=== PATIENT | female | born 1950 | race Caucasian/White ===

== ENCOUNTER → 2017-12-15 07:25 | Outpatient (CLI) | payer MEDICARE, OTHER, SELFPAY ==
[2017-12-15 10:33] LABS: AST(SGOT) 23 U/L (15-37); Alanine Aminotransfer ALT/SGPT 25 U/L (13-56); Albumin, Serum 3.8 g/dL (3.2-5.0); Alkaline Phosphatase 73 U/L (45-117); Anion Gap 9 (5-15); BUN 14 mg/dL (7-18); BUN/Creat Ratio 13.5 RATIO (10-20); Calcium,Total 8.8 mg/dL (8.5-10.1); Chloride 108 mmol/L (98-107); Cholesterol 243 mg/dL (200); Creatinine, Serum 1.04 mg/dL (0.55-1.02); EST Glomerular Filtration Rate 56 mL/min (>60); Est Glom Filt Rate - Afr Amer 68 mL/min (>60); Globulin 3.8 g/dL (2.2-4.2); Glucose 87 mg/dL (74-106); High Density Lipoprotein 60 mg/dL; Potassium 3.4 mmol/L (3.5-5.1); Protein, Total 7.6 g/dL (6.4-8.2); Sodium Level 144 mmol/L (136-145); Thyroid Stim Hormone (TSH) 8.14 uIU/mL (0.358-3.74); Triglycerides 288 mg/dL; Very Low Density Lipoprotein 58 mg/dL (5-40)
== END ==
PROVIDERS: Family Provider Family Medicine; PCP Family Medicine; Visit Provider Family Medicine
DX: E78.5 Hyperlipidemia, unspecified (principal); E03.2 Hypothyroidism due to medicaments and other exogenous substances
CPT/HCPCS: 36415; 80053; 80061; 84443

== ENCOUNTER 2017-12-21 13:30 | Outpatient (RCR) | payer MEDICARE, OTHER, SELFPAY ==
--- NOTE | 2017-11-30 15:40 | HP.PTEVAL_ITS ---
Patient's Visit Information EVELIN SANDHU is a 67 year old F referred to Physical Therapy by Robb RUTH with a diagnosis of BACK AND LEG PAIN. Date of Evaluation: 11/30/17 Physical Therapist: Zita Jeffers - Visit Plan Frequency: 2-3x /Week Duration: 4-6 Weeks Plan: *OSTEOPOROSIS*. POSTURE CORRECTION/STRENGTHENING, INSTRUCTION IN APPROPRIATE BODY MECHANICS AND ACTIVITY MODIFICATIONS. DLS STARTING WITH A NEUTRAL SPINE PROGRESSING ROM TOLERATED. LISA LE ROM, STRETCHING AND STRENGTHENING. HEP INSTRUCTION. - Subjective Subjective: Work/Leisure: RETIRED. Disability: NO. Present symptoms: LOW BACK AND LISA LE PAIN. NO NUMBNESS OR TINGLING. Present since: CHRONIC LBP. LE PAIN STRARTED ABOUT 6 MONTHS AGO. Pain Scale: WORST 9/10, LEAST 2/10. Currently: 2/10. Commenced as a result of: NO APPARENT REASON. Symptoms at onset: LOW BACK. Worse: VACUUMING, YARD WORK, LIFTING, LYING DOWN, TRYING TO SLEEP, PROLONGED SITTING, WALKING, *STANDING*. Better: SITTING DOWN. MINIMAL ACTIVITY. Disturbed sleep: YES. Previous history/Previous treatment: PRADIP'S IN LOW BACK EVERY 3 MONTHS FOR SEVERAL YEARS. NO BACK SURGERY. NO PT. NO CHIRO. Coughing/sneezing/straining: POSITIVE. Gait: NOT USING ANY ASSISTIVE NOW AND HASN'T FOR ABOUT 3 YEARS. USED ONE ABOUT 3 YEARS AGO DUE TO FALLS AND BALANCE ISSUES BUT THAT RESOLVED WITH TKR. PATIENT REPORTS THAT WALKING CURRENTLY CAUSES LOW BACK AND HIP ACHYING. STATES THE FURTHER SHE WALKS THE MORE IT HURTS AND THE HARDER IT GETS EVEN IF SHE HAS HAD AN PRADIP. SOMETIMES EVEN THE HEELS OF HER FEET HURT WALKING. Difficulty initiating urinatin: NO. Accidents: NO. Unexplained weight loss: NO. Imaging: NO LUMBAR IMAGING FOR 6 YEARS WHEN MRI FOUND STENOSIS. PMH: RIGHT TKR. ASTHMA. LEFT ROTATOR CUFF REPAIR. CHRONIC UPPER BACK AND NECK PAIN. 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 OSTEOPOROSIS. - Objective Sitting Posture: POOR. FORWARD HEAD AND INCREASED KYPHOSIS. Standing Posture: POOR. INCREASED TRUNK FLEXION. Lordosis: REDUECED. Lateral shift: NO. Relevant shift: N/A. Active Correction of posture: WORSE. Other Observations : INDEP TRANSFER SIT TO STAND WITHOUT UE ASSIST. INDEP GAIT INTO PT WITHOUT AD BUT SLOW CADNACE WITH VERY SHORT LISA STRIDE LENGTH AND INCREASED TRUNK FLEXION. Motor deficit: LISA LE STRENGTH GROSSLY 4/5 WITH MMT EXCEPT HIPS GRADED 4-/5. INCREASED LBP WITH GENTLE HIP STRENGTH TESTING. Sensory deficit: LISA LE LIGHT TOUCH SENSATION IS INTACT AND SYMMETRICAL. ROM deficit: LISA HIP TIGHTNESS. ONLY ABLE TO FLEX LISA HIPS TO ABOUT 95 DEG. TIGHT HIP FLEXORS AND LISA HIP ROTATORS. POSITIVE LISA BRIGITTE TESTS. Dural Signs: NEGATIVE LISA LE DURAL SIGNS. Lumbar mvmt loss: flex - MOD. ext - TAJ. R SG - TAJ. L SG - TAJ. PATIENT HAS C/O INCREASED BACK PAIN WITH LUMBAR ROM TESTING ALL PLANES. Core strength: POOR. Palpation: TENDERNESS WITH PALPATION THROUGHOUT THE LUMBAR SPINE. - Goals Goal 1:: DECREASE C/O BACK AND LE SX'S Goal Time Frame: 4-6 Weeks Goal 2:: IMPROVE PERSONAL CARE, LIFTING, WALKING, SITTING, STANDING, SLEEP, SOCIAL LIFE, TRAVEL AND HOMEMAKING FUNCTION Goal Time Frame: 4-6 Weeks Goal 3:: INSTRUCT IN PROPHYLAXIX Goal Time Frame: 4-6 Weeks - Rehabilitation Potential Rehabilitation Potential: Fair - Anticipated Interventions Patient/Client Instruction: Educate patient on: Condition, Plan of Care, Risk Factors, Benefits of Fitness Program For the Purpose of:: To improve self management Therapeutic Exercise to Include: Strength training, Body mechanics, Postural training, Flexibilty training, In an aquatic setting, Dynamic Lumbar Stabilization Comment: PATIENT REPORTS SHE HAS SOME ALLERGY TO CLORINE BUT WANTS TO TRY THE POOL. INSTRUCTED PATIENT TO LET THE POOL THERAPIST KNOW IF THE CLORINE BECOMES A PROBLEM AND IF SO SCHEDULE A RE-CHECK WITH ME TO CHANGE TO LAND. For the Purpose of:: To decrease pain, To increase ROM, To improve ability to perform ADL's, To improve ability of physical actions for home/community/work/ leisure, To improve gait and locomotor functions Thank you for the opportunity to evaluate your patient. For Medicare and Medicare HMO plans, please review the plan of care and approve it. It will need to be FAXED BACK to us at [phone] for Medicare purposes. Please let me know if there are questions or concerns regarding this plan of care. Physician Signature: Date:
--- NOTE | 2018-04-09 13:02 | HP.PTDCNRP_ITS ---
HP - Discharge Summary (1) - Patient Information EVELIN Maryjane SANDHU was seen in my office for initial evaluation on 11/30/17. The following Plan of Care was established for this patient: Initial Frequency: 2-3x /Week Initial Duration: 4-6 Weeks - Anticipated Interventions Patient/Client Instruction: Educate patient on: Condition, Plan of Care, Risk Factors, Benefits of Fitness Program For the Purpose of:: To improve self management Therapeutic Exercise to Include: Strength training, Body mechanics, Postural training, Flexibilty training, In an aquatic setting, Dynamic Lumbar Stabilization For the Purpose of:: To decrease pain, To increase ROM, To improve ability to perform ADL's, To improve ability of physical actions for home/community/work/ leisure, To improve gait and locomotor functions This patient was last seen in our office 12/23/17. Pertinent comments regarding their Physical therapy will appear below: This patient has not returned to Physical Therapy and is appropriate to return to MD for further follow-up as needed. At this point I will be discontinuing this patient from physical therapy. I would be happy to see this patient again in the future if found appropriate by the physician. Thank you! Zita Jeffers
== END 2017-12-21 19:00 | disposition home or self-care (01) ==
LOC: PT 13:30
PROVIDERS: Family Provider Family Medicine; PCP Family Medicine; Visit Provider Anesthesiology Pain Medicine
DX: M54.9 Dorsalgia, unspecified (principal); R29.898 Other symptoms and signs involving the musculoskeletal system
CPT/HCPCS: 97113; 97162; 97530

== ENCOUNTER → 2017-12-29 14:19 | Outpatient (CLI) | payer MEDICARE, OTHER, SELFPAY ==
--- NOTE | 2017-12-29 14:22 | BI_ITS ---
MAMMOGRAPHY - BILATERAL DIAGNOSTIC REASON FOR EXAM: Female, 67 years old. Patient indicates mother at age 36 with breast cancer. Maternal grandmother with breast cancer at age 69. Paternal aunt with breast cancer at age 70. PERTINENT HISTORY: See above. TECHNIQUE: Digital examination. 2-D and 3-D tomosynthesis Mediolateral oblique (MLO) and craniocaudad (CC) views of both breasts were obtained. CAD: CAD was performed on this study. COMPARISON: November 05, 2016. FINDINGS: Breast Composition: There are scattered areas of fibroglandular density. There are no dominant masses or suspicious calcifications. There are a few, scattered, typically benign appearing calcifications. There is a stable, 9.3 mm, well-circumscribed nodule within the left upper lateral breast mid zone region. No other significant abnormalities are identified. BI/SCREENING MAMM (CAD), BILAT IMPRESSION: Stable bilateral diagnostic mammogram. ASSESSMENT CATEGORY: BIRADS Category 2: Benign. A letter regarding these results will be sent to the patient by the facility within 30 days. FOLLOW UP RECOMMENDATION: Yearly follow up mammogram recommended. (A) Approximately 10% of breast cancers are not detected by mammography. A normal mammogram should not delay biopsy of a clinically suspicious abnormality. Electronically Signed: Waqar Phelps MD at 9:04 EDT , Service support ,
--- NOTE | 2017-12-29 14:23 | BD_ITS ---
STUDY: DUAL ENERGY X-RAY ABSORPTIOMETRY / DXA REASON FOR EXAM: Female, 67 years old. 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 TECHNIQUE: Bone Mineral Density (BMD) measurements of lumbar spine and bilateral hips were obtained. COMPARISON: 09/30/2015 FINDINGS: Lumbar Spine (L1-L4): g/cm2 (0.92) / T-score (-2.0) / Z-score (-0.4) Findings are suggestive of osteopenia with a moderate fracture risk. Left Femur Total: g/cm2 (0.88) / T-score ( ) / Z-score (0.4) Left Femoral Neck: g/cm2 (0.76) / T-score (-2.0) / Z-score (-0.4) Right Femur Total: g/cm2 (0.92) / T-score (-0.7) / Z-score (0.7) Right Femoral Neck: g/cm2 (0.85) / T-score (-1.4) / Z-score (0.3) The T-Scores on the most recent prior examination were: Lumbar Spine (L1-L4): There has been worsening of bone density since the previous examination. Left Femur Total: -0.9 which represents a worsening of 2.1%. Right Femur Total: 0.92 which represents an improvement of 1.6%. BD/Dexa Bone Density Study IMPRESSION: The patient is considered osteopenic as outlined below according to World Roel Organization (WHO) criteria with a moderate fracture risk. There has been worsening of bone density since the previous examination. Reference Information: The T-score is the number of standard deviations above or below the standard which is normal for young adults at their peak bone mineral density. The World Health Organization (WHO) interprets the T-scores as follows: Above -1 Normal bone density Between -1 and -2.5 Osteopenia Equal to / or below -2.5 Osteoporosis As a practical clinical guideline, osteopenia may be graded as follows: Mild -1 through -1.5 Moderate -1.6 through -2.0 Severe -2.1 through -2.4 The Z-score is the number of standard deviations above or below age-matched controls. A Z-score of less than -1.5 would be considered abnormal. References: 1. NIH Osteoporosis and Related Bone Diseases http://www.osteo.org 2. International Society for Clinical Densitometry http://www.iscd.org 3. National Osteoporosis Foundation http://www.nof.org Electronically Signed: Pablito Alejandro DO at 9:44 EDT , Service support ,
== END ==
PROVIDERS: Family Provider Family Medicine; PCP Family Medicine; Visit Provider Family Medicine
DX: Z12.31 Encounter for screening mammogram for malignant neoplasm of breast (principal); Z78.0 Asymptomatic menopausal state; M85.80 Other specified disorders of bone density and structure, unspecified site
CPT/HCPCS: 77063; 77067; 77080

== ENCOUNTER → 2018-02-11 07:20 | Outpatient (CLI) | payer MEDICARE, OTHER, SELFPAY ==
--- NOTE | 2018-02-11 07:20 | DT_ITS ---
This patient was seen during an EMR downtime February 06, 2018 - February 13, 2018. This patient may have a combination of paper and electronic documentation or all paper documentation. All documentation is viewable within the e-chart portion of [facility] for each patient visit.
--- NOTE | 2018-02-11 07:36 | MRI_ITS ---
STUDY: MRI LUMBAR SPINE WITHOUT CONTRAST REASON FOR EXAM: Female, 67 years old. Neck pain and back pain radiating into the right leg TECHNIQUE: Standardized fat and water weighted pulse sequences were obtained in the sagittal and axial planes. COMPARISON: May 05, 2015 MRI lumbar spine FINDINGS: Mild grade 1 anterolisthesis of L4 on L5 noted. No evidence for spondylolysis visualized spinal cord demonstrates no evidence of cord edema. Conus terminates at approximately L1-L2 level. Cauda equina nerve roots follow spinal curvature Mild wedging of the lumbar vertebra is seen. Minimal wedging of the lower thoracic vertebrae. Heterogeneous marrow signal intensity on T1-weighted imaging may relate with chronic anemia or osteopenia. Differential possibilities include marrow infiltrative processes such as myeloma. Disc desiccation all levels. Loss of disc height at L5-S1 level with endplate degenerative changes. Anterior and posterior osteophytic spurring. Hypertrophy of this process processes. Level by level segmental analysis: L1-L2 level: Mild facet hypertrophy ligamentum flavum thickening and broad-based disc bulge without significant central canal stenosis or neural foraminal narrowing L2-L3 level: Bilateral facet hypertrophy with ligamentum flavum thickening and broad-based disc bulge with a central and left. Central disc herniation resulting in mild deformity of the left ventrolateral thecal sac and moderate left-sided and [id number] right-sided neural foraminal narrowing with mild central canal stenosis. L3-L4 level: Bilateral facet hypertrophy ligamentum flavum thickening and broad-based disc bulge with marginal osteophytes resulting in moderate to severe bilateral neural foraminal narrowing and severe central canal stenosis. Epidural lipomatosis seen at this level. L4-5 level: Bilateral facet hypertrophy ligamentum flavum thickening and broad-based disc bulge with dorsal epidural lipomatosis and marginal osteophytes resulting in moderate bilateral neural foraminal narrowing and moderate to severe central canal stenosis. L5-S1 level: Bilateral facet hypertrophy ligamentum flavum thickening and broad-based disc bulge with a superimposed small central and right paracentral disc protrusion with marginal osteophytes resulting in severe right-sided neural foraminal narrowing with impingement/approximation of the exiting right L5 nerve root and moderate left-sided neural foraminal narrowing with approximation of the left L5 nerve root. Mild flattening of the ventral thecal sac. No paraspinous soft tissue mass or fluid collections identified. Right facet joint spurring noted with narrowing of the right lateral recess. No definite synovial cyst seen on the current examination as compared to previous examination IMPRESSION: Lumbar spondylotic changes with multilevel central canal stenosis and neural foraminal narrowing including L2-L3, L3-L4, L4-5 and L5-S1 levels. Please see above level by level complete analysis and details. No evidence for acute lumbar spine fractures. Electronically Signed: Antonio Velasquez, at 11:36 EDT Tel , Service support , MRI/Spine Lumbar (Routine)
== END ==
PROVIDERS: Family Provider Family Medicine; PCP Family Medicine; Visit Provider Anesthesiology Pain Medicine
DX: M54.9 Dorsalgia, unspecified (principal); M79.606 Pain in leg, unspecified
CPT/HCPCS: 72148

== ENCOUNTER → 2018-02-16 13:40 | Outpatient (CLI) | payer MEDICARE, OTHER, SELFPAY | PROVIDERS: Family Provider Family Medicine; PCP Family Medicine; Visit Provider Specialist | DX: Z91.038 Other insect allergy status (principal) | CPT/HCPCS: 36415 ==

== ENCOUNTER → 2018-02-28 15:02 | Outpatient (CLI) | payer MEDICARE, OTHER, SELFPAY ==
[2018-02-28 18:24] LABS: T4 Free Direct 1.12 ng/dL (0.76-1.46); Thyroid Stim Hormone (TSH) 0.81 uIU/mL (0.358-3.74)
== END ==
PROVIDERS: Family Provider Family Medicine; PCP Family Medicine; Visit Provider Family Medicine
DX: E03.2 Hypothyroidism due to medicaments and other exogenous substances (principal)
CPT/HCPCS: 36415; 84439; 84443

== ENCOUNTER → 2018-03-17 15:11 | Outpatient (CLI) | payer MEDICARE, OTHER, SELFPAY ==
--- NOTE | 2018-03-17 15:14 | VDLE_ITS ---
Reason For Study: LEG SWELLING RIGHT LEFT GSV is normal. GSV is normal. CFV is compressible, spontaneous, phasic, CFV is compressible, spontaneous, phasic, competent and demonstrates normal competent, and demonstrates normal augmentation. augmentation. FV is compressible, spontaneous, phasic, FV is compressible, spontaneous, phasic, competent and demonstrates normal competent and demonstrates normal augmentation. augmentation. POP V is compressible, spontaneous, phasic, POP V is compressible, spontaneous, phasic, competent and demonstrates normal competent and demonstrates normal augmentation. augmentation. T/P Trunk is compressible. T/P Trunk is compressible. PTV is compressible. PTV is compressible. RT PerV is compressible. LT PerV is compressible. Procedure Exam performed in department. A preliminary report was called and/or faxed to Dr. Recio. Interpretation Summary Deep veins of the lower extremities are bilaterally patent and compressible segmentally. There is no evidence of deep vein thrombosis on either side. Valvular competence appears intact within the proximal deep venous systems bilaterally. The greater saphenous veins appear bilaterally patent and compressible segmentally. Ordering Physician: Kobi Recio Referring Physician: Kobi Recio Performed By: Rain Piedra RVT
== END ==
PROVIDERS: Family Provider Family Medicine; PCP Family Medicine; Visit Provider Family Medicine
DX: M79.89 Other specified soft tissue disorders (principal)
CPT/HCPCS: 93970

== ENCOUNTER → 2018-04-11 15:35 | Outpatient (CLI) | payer MEDICARE, OTHER, SELFPAY ==
[2018-04-11 17:00] LABS: Amphetamine Urine VISTA NEGATIVE (<1000 ng/mL); Barbiturate Urine VISTA NEGATIVE (< 200 ng/mL); Benzodiazepine Urine VISTA NEGATIVE (< 200 ng/mL); Cocaine Urine VISTA NEGATIVE (< 300 ng/mL); Ecstacy Urine VISTA NEGATIVE (< 500 ng/mL); Methadone Urine VISTA NEGATIVE (< 300 ng/mL); PCP Urine VISTA NEGATIVE (< 25 ng/mL); THC Urine VISTA NEGATIVE (< 50 ng/mL); Vista UDS pH Range 6
== END ==
PROVIDERS: Family Provider Family Medicine; PCP Family Medicine; Visit Provider Anesthesiology Pain Medicine
DX: F11.20 Opioid dependence, uncomplicated (principal)
CPT/HCPCS: 80307

== ENCOUNTER → 2018-12-13 08:39 | Outpatient (CLI) | payer MEDICARE, OTHER, SELFPAY ==
--- NOTE | 2018-12-13 08:58 | RAD_ITS ---
STUDY: X-RAY - LUMBAR SPINE REASON FOR EXAM: Female, 68 years old. History of spinal stenosis. Pain. TECHNIQUE: 3 view(s) of the lumbar spine were obtained. COMPARISON: Numerous prior studies including previous radiographs 02/25/2015. FINDINGS: Normal lumbar lordosis. There is no substantial scoliosis. There is a normal alignment of the vertebrae. There is multilevel endplate spondylosis of the lumbar vertebrae. There is multi-level degenerative disc disease with multi-level disc space narrowing. Findings are most pronounced at L5-S1. Grossly stable. There is no demonstrated fracture. There is atherosclerotic calcification of the abdominal aorta without a demonstrated aneurysm. RAD/Lumbar Spine 2 or 3 Views IMPRESSION: No acute abnormality. Stable degenerative changes. Electronically Signed: Ruslan Davis MD at 21:25 EDT , Service support ,
[2018-12-13 11:02] LABS: Cholesterol 175 mg/dL (200); High Density Lipoprotein 66 mg/dL; Thyroid Stim Hormone (TSH) 0.14 uIU/mL (0.358-3.74); Triglycerides 101 mg/dL; Very Low Density Lipoprotein 20 mg/dL (5-40)
== END ==
PROVIDERS: Family Provider Family Medicine; PCP Family Medicine; Referring Provider Anesthesiology Pain Medicine; Visit Provider Anesthesiology Pain Medicine
DX: E03.2 Hypothyroidism due to medicaments and other exogenous substances (principal); E78.5 Hyperlipidemia, unspecified
CPT/HCPCS: 36415; 72100; 80061; 84443

== ENCOUNTER → 2018-12-28 13:10 | Outpatient (CLI) | payer MEDICARE, OTHER, SELFPAY ==
--- NOTE | 2018-12-28 13:17 | RAD_ITS ---
STUDY: X-RAY - PELVIS AND RIGHT HIP REASON FOR EXAM: Female, 68 years old. Radiating right hip pain TECHNIQUE: 3 views of the pelvis and hip. COMPARISON: None. FINDINGS: There is a non-specific bowel gas pattern. Normal visualized soft tissue structures. There is diffuse demineralization of the osseous structures. There is narrowing with cortical sclerosis and osteophyte formation of the sacroiliac joint consistent with degenerative osteoarthritic changes. Normal bilateral superior and inferior pubic rami. Normal pubic symphysis. Normal bilateral ischial tuberosities. Normal visualized femoral head. Normal acetabulum. There is mild articular joint space narrowing of the hip. RAD/HIP, UNI W/ Pelvis 2-3 Views IMPRESSION: Degenerative arthrosis, no demonstrated fracture or suspicious osseous lesion. However, hip and pelvic fractures in patients of this age can be subtle, if there is strong clinical suspicion of a fracture, recommend further evaluation with CT Electronically Signed: Franklin Arcos MD at 14:03 EDT , Service support ,
== END ==
PROVIDERS: Family Provider Family Medicine; PCP Family Medicine; Referring Provider Anesthesiology Pain Medicine; Visit Provider Anesthesiology Pain Medicine
DX: M25.551 Pain in right hip (principal)
CPT/HCPCS: 73502

== ENCOUNTER → 2019-01-05 15:28 | Outpatient (CLI) | payer MEDICARE, OTHER, SELFPAY ==
--- NOTE | 2019-01-05 15:32 | BI_ITS ---
MAMMOGRAPHY - BILATERAL SCREENING 3-D TOMOSYNTHESIS REASON FOR EXAM: Female, 68 years old. Bilateral Screening 3-D tomosynthesis PERTINENT HISTORY: Mother at age 36 and maternal grandmother at age 69 and paternal aunt at age 70 and diagnosed with breast cancer. Bilateral needle biopsies.. TECHNIQUE: 2-D mammograms and 3-D Tomosynthesis of the breast (s) were performed. CAD was performed. COMPARISON: December 29, 2017. FINDINGS: The breast composition is composed of scattered fibroglandular density. Scattered benign calcifications are seen. No dense spiculated masses or suspicious microcalcifications are identified. No architectural distortion is identified. There is no skin thickening or retraction. Typically benign-appearing calcifications are identified. There has been no significant change since the prior study. BI/SCREENING MAMM (CAD), BILAT IMPRESSION: No mammographic signs of malignancy. Routine yearly mammograms recommended. ASSESSMENT CATEGORY: BIRADS Category 2: Benign. A letter regarding these results will be sent to the patient by the facility within 30 days. FOLLOW UP RECOMMENDATION: Yearly follow up mammogram recommended. (A) Approximately 10% of breast cancers are not detected by mammography. A normal mammogram should not delay biopsy of a clinically suspicious abnormality. Electronically Signed: Waqar Phelps MD at 7:55 EDT , Service support ,
== END ==
PROVIDERS: Family Provider Family Medicine; PCP Family Medicine; Referring Provider Family Medicine; Visit Provider Family Medicine
DX: Z12.31 Encounter for screening mammogram for malignant neoplasm of breast (principal)
CPT/HCPCS: 77063; 77067

== ENCOUNTER → 2019-03-12 16:25 | Outpatient (CLI) | payer MEDICARE, OTHER, SELFPAY ==
[2019-03-12 17:59] LABS: T4 Free Direct 1.16 ng/dL (0.76-1.46); Thyroid Stim Hormone (TSH) 1.28 uIU/mL (0.358-3.74)
== END ==
PROVIDERS: Family Provider Family Medicine; PCP Family Medicine; Visit Provider Family Medicine
DX: E03.2 Hypothyroidism due to medicaments and other exogenous substances (principal)
CPT/HCPCS: 36415; 84439; 84443

== ENCOUNTER 2019-05-02 14:00 | Outpatient (RCR) | payer MEDICARE, OTHER, SELFPAY ==
[2019-03-26 14:07] VITALS: BMI 36.3
--- NOTE | 2019-04-10 12:01 | HP.PTEVAL_ITS ---
Patient's Visit Information EVELIN SANDHU is a 68 year old F referred to Physical Therapy by Willie Cardoza DO with a diagnosis of RIGHT HIP FLEXOR TENDONITIS. Date of Evaluation: 04/10/19 Physical Therapist: Zita Jeffers PT, Cert MDT - Visit Plan Frequency: 2-3x /Week Duration: 4-6 Weeks Plan: RIGHT HIP US, GENTLE ROM, STRETCHING AND STRENGTHENING TO HELP MEET SET GOALS. - Subjective Findings: THIS PATIENT PRESENTS TO PT WITH C/O LEFT HIP PAIN AND CATCHING. SHE REPORTS SHE IS HOPING PHYSICAL THERAPY WILL HELP IT SO SHE DOESN'T HAVE TO HAVE SURGERY. Work/Leisure: RETIRED. Disability: NO. Present symptoms: RIGHT HIP PAIN AND CATCHING. H/O NERVE PROBLEMS IN BOTH LEGS. RIGHT HIP PAIN CURRENTLY RADIATING DOWN JUST BELOW KNEE. Present since: ABOUT 2-3 MONTHS. Pain Scale: WORST 9/10, LEAST 0/10. Currently: 2/10. Commenced as a result of: NO APPARENT REASON. Symptoms at onset: RIGHT LEG WAS HURTING AND CATCHING AND WOULDN'T WORK [employer]. Worse: STOOPING, STANDING, WALKING, ALPESH ENING, ROLLING OVER IN BED. Better: SITTING AND STRETCHING OUT LEG. Disturbed sleep: SOMETIMES. Previous history/Previous treatment: HIP INJECTION BY DR. KNOX THAT DIDN'T HELP. Coughing/sneezing/straining: NEGATIVE. Gait: SOMETIMES THE RIGHT LEG WON'T GO - IT CATCHES AND DOESN'T WANT TO MOVE THEN THE PAIN STARTS. Difficulty initiating urinatin: NO. Accidents: NO. Unexplained weight loss: NO. Imaging: RIGHT HIP X-RAY - OSTEOPOROSIS. PMH: SPINAL STENOSIS, ASTHMA. 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 - Objective Sitting/Standing Posture: POOR. DECREASED LORDOSIS BUT NO RELEVENT LATERAL SHIFT. Active Correction of posture: Other Observations: INDEP SLOW GAIT INTO PT WITH NO LOSS OF BALANCE AND MILD LIMP ON RIGHT LE. Motor deficit: LLE: HIP 4/5, KNEE 4-5/5, ANKLE 5/5. RIGHT HIP 3+/5, KNEE EXT 4-/5, KNEE FLEX 4-/5, AN KLE 4-/5. RIGHT LE MMT LIMITED BY PAIN. Sensory deficit: LISA LE LIGHT TOUCH SENSATION APPEARS SYMMETRICAL. ROM deficit: LEFT LE WFL. RIGHT HIP, KNEE AND ANKLE ROM IS PAINFUL. SHE IS UNABLE TO DO A STRAIGHT LEG RAISE RIGHT IN LYING AND SHE HAS LIMITED RIGHT HIP PAIN ALL PLANES WITH MOST COMFORTALE POSITION BEING ABOUT 80 DEG OF FLEXION IN SITTING. Lumbar mvmt loss: NT AT PATIENTS REQUEST. GETTING BACK INJECTIONS EVERY 3 MONTHS. Core strength: POOR. Palpation: TENDERNESS WITH PALPATION OF THE RIGHT ANTERIOR HIP AND GROIN REGIONS. RIGHT GREATER TROCH REGION IS NOT TENDER. - Goals Goal 1:: DECREASE C/O RIGHT HIP PAIN Goal Time Frame: 4-6 Weeks Goal 2:: IMPROVE STANDING AND WALKING FUNCTION TO EASE ADL'S Goal Time Frame: 4-6 Weeks Goal 3:: IMPROVE RIGHT LE FUNCTIONAL STRENGTH TO INCREASE ACTIVITY TOLERANCE Goal Time Frame: 4-6 Weeks Goal 4:: IMPROVE RIGHT LE FUNCTIONAL ROM TO EASE ADL'S Goal Time Frame: 4-6 Weeks Goal 5:: INDEP HEP Goal Time Frame: 4-6 Weeks - Rehabilitation Potential Rehabilitation Potential: Fair - Anticipated Interventions Patient/Client Instruction: Educate patient on: Condition, Plan of Care, Risk Factors, Benefits of Fitness Program For the Purpose of:: To improve self management Therapeutic Exercise to Include: Strength training, Flexibilty training, Active ROM For the Purpose of:: To decrease pain, To increase ROM, To improve muscle performance and motor function, To increase tolerance to activity/condition/position, To improve ability of physical actions for home/community/work/leisure Thank you for the opportunity to evaluate your patient. For Medicare and Medicare HMO plans, please review the plan of care and approve it. It will need to be FAXED BACK to us at [phone] for Medicare purposes. For Medicare only, by signing this I certify the plan of care. Please let me know if there are questions or concerns regarding this plan of care. Physician Signature: Date:
--- NOTE | 2019-05-02 14:36 | HP.PTDCSUM_ITS ---
HP - PT D/C Summary It has been my pleasure to treat EVELIN SANDHU under orders from Willie Cardoza DO, for the diagnosis of RIGHT HIP FLEXOR TENDONITIS for a total of 7 visit(s). Discharge Date: Please see the following information for a summary of their discharge status. - Subjective Subjective: PATIENT REPORTS THAT LAST SESSION REALLY HELPED A LOT . STATES SHE HASN'T HAD ANY PAIN OR CATCHING SINCE LAST VISIT AND SHE IS NO LONGER HAVING TROUBLE GETTING IN AND OUT OF BED. STATES SHE IS ABOUT 80% BETTER. NOT 100% BECAUSE STILL HAS SOME TENDERNESS WHEN SHE PUSHES ON THE OUTSIDE OF HER RIGHT HIP. SHE IS HOPEFUL THAT IF SHE CONTINUES THESE EX'S IT WILL GO AWAY. STATES THAT NOW SHE DOESN'T THINK SHE HAS TO GO BACK TO DR. STEWARD AND GET THAT MRI. NO GROIN PAIN OR CATCHING NOW. PATIENT REPORTS SHE WANTS THIS TO BE HER LAST THERAPY SESSION AND SHE WILL USE HER [facility] [employer] MEMBERSHIP TO CONTINUE - Pain ANTERIOR R HIP Pain Intensity (Out of 10): 0 - Overall Improvement % Improvement: 80 - Objective Objective/Function: PATIENT IS HAPPY WITH HER PROGRESS AND DID WELL WITH ALL OF THE EX'S TODAY. I AM GOING TO GO AHEAD AND DISCHARGE HER TO EX WITH HER [facility] [employer] MEMBERSHIP AT HER REQUEST. I STRONGLY ENCOURAGED HER TO FOLLOW UP WITH DR. DICK IF HER PAIN COMES BACK. SHE IS AGREEABLE. PATIENT REMAINED PAINFREE THROUGHOUT SESSION. EVEN DID WELL WITH LATERAL STEP UPS TODAY. - Goals Goal 1:: DECREASE C/O RIGHT HIP PAIN Goal Progress: Goal Met Goal 2:: IMPROVE STANDING AND WALKING FUNCTION TO EASE ADL'S Goal Progress: Goal Met Goal 3:: IMPROVE RIGHT LE FUNCTIONAL STRENGTH TO INCREASE ACTIVITY TOLERANCE Goal Progress: Goal Met Goal 4:: IMPROVE RIGHT LE FUNCTIONAL ROM TO EASE ADL'S Goal Progress: Goal Met Goal 5:: INDEP HEP Goal Progress: Goal Met - Plan Plan: D/C - D/C Information If there are questions or concerns regarding this patient's physical therapy, please feel free to call me at [phone]. Thank you for the referral of this patient. Sincerely, Zita Jeffers, PT, Cert MDT
== END 2019-05-02 19:00 | disposition home or self-care (01) ==
LOC: PT 14:00
PROVIDERS: Family Provider Family Medicine; PCP Family Medicine; Referring Provider Orthopaedic Surgery; Visit Provider Orthopaedic Surgery
DX: M76.11 Psoas tendinitis, right hip (principal)
CPT/HCPCS: 97035; 97110; 97161; 97530

== ENCOUNTER → 2019-07-09 16:38 | Outpatient (CLI) | payer MEDICARE, OTHER, SELFPAY ==
[2019-03-26 14:07] VITALS: BMI 36.3
--- NOTE | 2019-07-09 16:42 | RAD_ITS ---
STUDY: X-RAY - UNILATERAL RIBS ( LEFT ) WITH CHEST REASON FOR EXAM: Female, 68 years old. Contusion, chest wall pain, fell 2 days ago TECHNIQUE - RIBS: 3 view(s) of the ribs. TECHNIQUE - CHEST: Single PA view of the chest. COMPARISON: Prior chest of 04/28/2017 FINDINGS - RIBS: There is an old healed fracture of the left second rib. The bones are osteopenic. FINDINGS - CHEST: The lungs are clear and expanded. Left hemidiaphragm is mildly elevated. Normal size heart. Normal mediastinum and key. Normal visualized pulmonary arteries. There are calcified plaques of the aortic arch. Normal visualized thoracic spine. Normal visualized ribs, clavicles, and shoulders. There is no demonstrated abnormality of the visualized soft tissue structures of the upper abdomen. RAD/Ribs Uni Min 3V w/PA Chest IMPRESSION: RIBS: Old healed fracture of the left second rib. There is no evidence of acute. CHEST: Mildly elevated left hemidiaphragm. Calcified plaques of the aortic arch. There is no evidence of hemo or pneumothorax or pulmonary contusion. Electronically Signed: Eliseo Martínez MD at 22:34 EST , Service support ,
== END ==
PROVIDERS: Family Provider Family Medicine; PCP Family Medicine; Referring Provider Family Medicine; Visit Provider Family Medicine
DX: S20.212A Contusion of left front wall of thorax, initial encounter (principal); X58.XXXA Exposure to other specified factors, initial encounter; Y93.9 Activity, unspecified; Y92.9 Unspecified place or not applicable; Y99.9 Unspecified external cause status
CPT/HCPCS: 71101

== ENCOUNTER → 2020-01-24 14:20 | Outpatient (CLI) | payer MEDICARE, OTHER, SELFPAY ==
[2019-03-26 14:07] VITALS: BMI 36.3
--- NOTE | 2020-01-24 14:23 | BI_ITS ---
MAMMOGRAPHY - BILATERAL SCREENING REASON FOR EXAM: Female, 69 years old. Routine annual screening examination. PERTINENT HISTORY: Mother with breast cancer. Grandmother with breast cancer. Aunt with breast cancer. TECHNIQUE: Digital bilateral breast mylene (3D mammographic acquisition) in the CC and MLO projections. 2-D mediolateral oblique (MLO) and craniocaudad (CC) views of both breasts were obtained. CAD: Full Field Digital Mammography with Computer Added Detection was performed. COMPARISON: Comparison is made with prior examination dated January 05, 2019 and December 29, 2017. FINDINGS: Breast Composition: There are scattered areas of fibroglandular density. There are no dominant masses or suspicious calcifications. Stable benign-appearing bilateral axillary lymph nodes. No other significant abnormalities are identified. There has been no significant change since the prior study. BI/SCREEN MAMM (CAD) W/MYLENE BILAT IMPRESSION: Stable bilateral screening mammogram. Yearly follow-up mammogram recommended. (A) ASSESSMENT CATEGORY: BIRADS Category 2: Benign. A letter regarding these results will be sent to the patient by the facility within 30 days. Approximately 10% of breast cancers are not detected by mammography. A normal mammogram should not delay biopsy of a clinically suspicious abnormality. [id number] Electronically Signed: Asa Damon, at 10:58 EDT , Service support ,
--- NOTE | 2020-01-24 14:29 | BD_ITS ---
STUDY: DUAL ENERGY X-RAY ABSORPTIOMETRY / DXA REASON FOR EXAM: Female, 69 years old. 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 COMPARISON: Comparison is made with prior examination dated December 29, 2017. FINDINGS: Lumbar Spine (L1-L4): g/cm2 (0.985) / T-score (-1.5) / Z-score (0.2) Findings are suggestive of osteopenia with a low fracture risk. Left Femur Total: g/cm2 (0.909) / T-score (-0.8) / Z-score (0.7) Left Femoral Neck: g/cm2 (0.777) / T-score (-1.9) / Z-score (-0.2) Right Femur Total: g/cm2 (0.910) / T-score (-0.8) / Z-score (0.7) Right Femoral Neck: g/cm2 (0.785) / T-score (-1.8) / Z-score (-0.1) The T-Scores on the most recent prior examination were: Lumbar Spine (L1-L4): There has been improvement of bone density since the previous examination. Left Femur Total: which represents an improvement of 2.4%. Right Femur Total: which represents a worsening of 1.6%. BD/Dexa Bone Density Study IMPRESSION: The patient is considered osteopenic as outlined below according to World Roel Organization (WHO) criteria with a moderate fracture risk. There has been improvement of bone density since the previous examination. Reference Information: The T-score is the number of standard deviations above or below the standard which is normal for young adults at their peak bone mineral density. The World Health Organization (WHO) interprets the T-scores as follows: Above -1 Normal bone density Between -1 and -2.5 Osteopenia Equal to / or below -2.5 Osteoporosis As a practical clinical guideline, osteopenia may be graded as follows: Mild -1 through -1.5 Moderate -1.6 through -2.0 Severe -2.1 through -2.4 The Z-score is the number of standard deviations above or below age-matched controls. A Z-score of less than -1.5 would be considered abnormal. References: 1. NIH Osteoporosis and Related Bone Diseases http://www.osteo.org 2. International Society for Clinical Densitometry http://www.iscd.org 3. National Osteoporosis Foundation http://www.nof.org Electronically Signed: Asa Damon, at 13:53 EDT , Service support ,
== END ==
PROVIDERS: PCP Family Medicine; Referring Provider Family Medicine; Visit Provider Family Medicine
DX: Z12.31 Encounter for screening mammogram for malignant neoplasm of breast (principal); Z78.0 Asymptomatic menopausal state
CPT/HCPCS: 77063; 77067; 77080

== ENCOUNTER → 2020-09-08 11:02 | Outpatient (CLI) | payer MEDICARE, OTHER, SELFPAY ==
[2019-03-26 14:07] VITALS: BMI 36.3
[2020-09-08 12:51] LABS: Hematocrit 38.9 % (37-47); Hemoglobin 12.7 g/dL (12.0-15.0); Mean Corp Hgb Conc 32.6 g/dL (32-36); Mean Corpuscular Hgb 28.6 pg (27.0-32.0); Mean Corpuscular Volume 87.6 fL (81-99); Mean Platelet Vol. 9.7 fl (6.2-12.0); Platelet Count 284 K/mm3 (150-450); RBC Distribution Width CV 13.3 % (11.6-14.6); RBC Distribution Width SD 43.2 fl (35.1-43.9); Red Blood Count 4.44 M/mm3 (4.2-5.4); White Blood Count 8.4 K/mm3 (4.4-11.0)
[2020-09-08 13:13] LABS: Vitamin D,25 Hydroxy 54.9 ng/mL
[2020-09-08 13:33] LABS: ALB/GLOB Ratio 1.2 RATIO (0.9-2.4); AST(SGOT) 12 U/L (15-37); Alanine Aminotransfer ALT/SGPT 19 U/L (13-56); Albumin, Serum 3.9 g/dL (3.2-5.0); Alkaline Phosphatase 61 U/L (45-117); Anion Gap 7 (5-15); BUN 24 mg/dL (7-18); Chloride 107 mmol/L (98-107); Cholesterol 181 mg/dL (200); Creatinine, Serum 1.09 mg/dL (0.55-1.02); EST Glomerular Filtration Rate 53 mL/min (>60); Est Glom Filt Rate - Afr Amer 64 mL/min (>60); Globulin 3.2 g/dL (2.2-4.2); Glucose 86 mg/dL (74-106); High Density Lipoprotein 66 mg/dL; Potassium 3.6 mmol/L (3.5-5.1); Protein, Total 7.1 g/dL (6.4-8.2); Sodium Level 141 mmol/L (136-145); T4 Free Direct 1.12 ng/dL (0.76-1.46); Thyroid Stim Hormone (TSH) 1.41 uIU/mL (0.358-3.74); Triglycerides 107 mg/dL; Very Low Density Lipoprotein 21 mg/dL (5-40)
== END ==
PROVIDERS: PCP Family Medicine; Referring Provider Family Medicine; Visit Provider Family Medicine
DX: K21.9 Gastro-esophageal reflux disease without esophagitis (principal); E78.5 Hyperlipidemia, unspecified; E03.2 Hypothyroidism due to medicaments and other exogenous substances; E55.9 Vitamin D deficiency, unspecified
CPT/HCPCS: 36415; 80053; 80061; 82306; 84439; 84443; 85027

== ENCOUNTER → 2021-01-26 12:55 | Outpatient (CLI) | payer MEDICARE, SELFPAY ==
[2019-03-26 14:07] VITALS: BMI 36.3
--- NOTE | 2021-01-26 12:57 | BI_ITS ---
MAMMOGRAPHY - BILATERAL SCREENING REASON FOR EXAM: Female, 70 years old. Routine annual screening examination. PERTINENT HISTORY: Mother with breast cancer. Grandmother with breast cancer. Aunt with breast cancer. TECHNIQUE: Digital bilateral breast christin (3D mammographic acquisition) in the CC and MLO projections. 2-D mediolateral oblique (MLO) and craniocaudad (CC) views of both breasts were obtained. CAD: Full Field Digital Mammography with Computer Added Detection was performed. COMPARISON: Comparison is made with prior study of 01/24/2020 and 01/05/2019. FINDINGS: Breast Composition: There are scattered areas of fibroglandular density. There are no dominant masses or suspicious calcifications. Stable benign appearing bilateral axillary lymph nodes. No other significant abnormalities are identified. There has been no significant change since the prior study. BI/SCREENING MAMM (CAD), BILAT IMPRESSION: Stable bilateral screening mammogram. Yearly follow-up mammogram recommended. (A) ASSESSMENT CATEGORY: BIRADS Category 2: Benign. A letter regarding these results will be sent to the patient by the facility within 30 days. Approximately 10% of breast cancers are not detected by mammography. A normal mammogram should not delay biopsy of a clinically suspicious abnormality. [id number] Electronically Signed: Asa Damon MD at 13:51 EDT , Service support ,
== END ==
PROVIDERS: PCP Family Medicine; Referring Provider Family Medicine; Visit Provider Family Medicine
DX: Z12.31 Encounter for screening mammogram for malignant neoplasm of breast (principal); Z70.3 Counseling related to combined concerns regarding sexual attitude, behavior and orientation
CPT/HCPCS: 77067

== ENCOUNTER 2021-03-16 16:07 | Observation (INO) | payer MEDICARE, SELFPAY ==
[2019-03-26 14:07] VITALS: BMI 36.3
[2021-03-16] VITALS (10 sets, daily range): BP systolic 141–188; BP diastolic 56–76; PULSE 62–67; RESP 16–18; TEMP 36.6–36.9; O2SAT 95–98; BMI 33.6; BMI 35.2
--- NOTE | 2021-03-16 16:45 | EKG12_ITS ---
Test Reason : CHEST PAIN Blood Pressure : / mmHG Vent. Rate : 067 BPM Atrial Rate : 067 BPM P-R Int : 154 ms QRS Dur : 086 ms QT Int : 406 ms P-R-T Axes : 034 006 011 degrees QTc Int : 429 ms Normal sinus rhythm Nonspecific ST abnormality Abnormal ECG Confirmed by TYRONE DAVILA, EDEL ([id number]), offline editor AALIYAH RO ([id number]) on 03/18/2021 11:51:10 AM Referred By: AUBREY Confirmed By:EDEL HANSEN MD
[2021-03-16] MEDS: Ondansetron 4 MG/2 ML Vial IV (16:56)
[2021-03-16] MEDS: 0.9% Normal Saline 1,000 ML 1000 ML IV (16:56)
--- NOTE | 2021-03-16 16:59 | RAD_ITS ---
INDICATION: chest pain EXAMINATION/TECHNIQUE: X-RAY - XR Chest 1 View COMPARISON: 07/09/2019. FINDINGS: The lungs are clear. Tortuous and calcified thoracic aorta. The heart is not enlarged. Elevation of the left hemidiaphragm. No pleural effusion or pneumothorax. No acute osseous abnormalities. RAD/Chest 1 View (Portable) IMPRESSION: No acute radiographic abnormalities. Electronically Signed: Neil Baker MD at 17:40 EDT Tel , Service support ,
[2021-03-16 17:04] LABS: Absolute Lymphocyte Count 1.89 X10^3/uL (0.83-4.51); Absolute Neutrophil Count 5.5 X10^3/uL (2.0-7.7); Basophil# 0.04 X10^3/uL; Basophil% 0.5 % (0-1); Eosinophils% 1.3 % (0-5); Hematocrit 36.8 % (37-47); Hemoglobin 11.9 g/dL (12.0-15.0); Lymphocyte # 1.89 X10^3/ul (0.83-4.51); Lymphocyte % 23.6 % (19-41); Mean Corp Hgb Conc 32.3 g/dL (32-36); Mean Corpuscular Hgb 27.9 pg (27.0-32.0); Mean Corpuscular Volume 86.2 fL (81-99); Mean Platelet Vol. 9.3 fl (6.2-12.0); Monocyte# 0.47 X10^3/uL; Monocyte% 5.9 % (0-10); NRBC Flagged by Analyzer 0 % (0-5); Neutrophil # 5.48 X10^3/uL (2.7-7.7); Neutrophil % 68.4 % (47-70); Platelet Count 239 K/mm3 (150-450); RBC Distribution Width CV 13.9 % (11.6-14.6); RBC Distribution Width SD 43.7 fl (35.1-43.9); Red Blood Count 4.27 M/mm3 (4.2-5.4)
--- NOTE | 2021-03-16 17:04 | EDS_ITS ---
HPI History of Present Illness Chief Complaint: Chest Pain Informant: patient Narrative Narrative: Patient is a 70-year-old female who presents to the emergency department for multiple complaints. She states that she has had nausea/vomiting/diarrhea over the past 3 days. Is been going on all day. She developed chest pain that was substernal today. This lasted maybe 45 minutes. She is currently asymptomatic with this. She states that she has had this disco mfort before in the past. She does have a history of GERD and does take medications for this. No radiation of the pain. It did not seem to be related with exertion. She denies any leg swelling or calf pain. No history of CAD, thromboembolism. She denies any known sick contacts. She has had a mild nonproductive cough. No fevers or chills. She denies any recent travel or antibiotic use. Her abdominal pain she rates as mild. She has been urinating more frequently lately but denies any dysuria or hematuria. [facility] Medical History (Updated 03/16/21 @ 21:[address] Willie Merida, ) Anxiety Asthma Chest pain Chronic pain Degenerative lumbar spinal stenosis Depression GERD (gastroesophageal reflux disease) High cholesterol Hypertension Non-smoker Osteoarthritis Osteoporosis Screening for colon cancer Home Medications albuterol sulfate 2 puff IH PRN PRN 11/04/16 [History Last Taken Unknown] ascorbic acid (vitamin C) 500 mg PO DAILY@0800 11/04/16 [History Last Taken 03/15/21] atorvastatin 20 mg PO QHS 11/04/16 [History Last Taken 03/15/21] cholecalciferol (vitamin D3) 6,000 unit PO DAILY 11/04/16 [History Last Taken 03/15/21] citalopram 20 mg PO DAILY 11/04/16 [History Last Taken 03/15/21] fish oil-dha-epa 1 ea PO DAILY 11/04/16 [History Last Taken 03/16/21] fluticasone furoate-vilanterol 1 puff IH DAILY 11/04/16 [History Last Taken 03/16/21] levothyroxine 112 mcg PO DAILY 11/04/16 [History Last Taken 03/16/21] melatonin-pyridoxine (vit B6) 1 ea PO QHS 11/04/16 [History Last Taken Unknown] meloxicam 7.5 mg PO DAILY 11/04/16 [History Last Taken 03/15/21] mv,Ca,min-folic acid-vit K1 1 ea PO DAILY 11/04/16 [History Last Taken 03/16/21] venlafaxine 37.5 mg PO QHS 11/04/16 [History Last Taken 03/15/21] vitamin E 400 unit PO DAILY 11/04/16 [History Last Taken 03/16/21] calcium carbonate-vitamin D3 2 tab PO QHS 11/08/16 [History Last Taken 03/15/21] famotidine 40 mg PO QHS 03/16/21 [History Last Taken 03/15/21] gabapentin 100 mg PO TID 03/16/21 [History Last Taken 03/16/21] losartan 50 mg PO DAILY 03/16/21 [History Last Taken 03/16/21] Allergy/AdvReac Type Severity Reaction Status Date / Time codeine Allergy Rash Verified 03/16/21 16:18 bismuth subsalicylate AdvReac Nausea/Vom/ Verified 03/16/21 16:18 [From Pepto-Bismol] Diarrhea diphenhydramine HCl AdvReac Nausea/Vom/ Verified 03/16/21 16:18 [From Benadryl] Diarrhea simvastatin [From Zocor] AdvReac Nausea Verified 03/16/21 16:18 Surgical History H/O thyroidectomy History of appendectomy Social History Smoking Status: Never smoker ROS ROS ED Constitutional Constitutional ED: Denies chills or fever(s) Eyes Eyes: Denies change in vision ENT ENT ED: Denies epistaxis or rhinorrhea Cardiovascular Cardiovascular: Reports chest pain; Denies palpitations Respiratory/Chest Respiratory/Chest: Denies cough, dyspnea or dyspnea on exertion Gastrointestinal Gastrointestinal: Reports abdominal pain, diarrhea, nausea and vomiting; Denies constipation or melena Genitourinary Genitourinary ED: Reports urinary frequency; Denies dysuria or hematuria Musculoskeletal Musculoskeletal: Denies back pain or neck pain Integumentary Denies rash Neurologic Neurologic: Denies dizziness, headache(s) or weakness EXAM Physical Exam Const Vital Signs: 03/16/21 16:08 03/16/21 16:18 03/16/21 16:51 Temperature 98.5 F Temperature Source Oral Pulse Rate 67 Respiratory Rate 17 Respiratory Effort Normal Respiratory Pattern Normal Blood Pressure 158/76 H Blood Pressure Mean 103 Pulse Ox 95 98 Oxygen Delivery Method Room Air Room Air 03/16/21 17:28 03/16/21 18:42 Temperature 98.1 F Temperature Source Oral Pulse Rate 63 63 Respiratory Rate 18 16 Respiratory Effort Respiratory Pattern Blood Pressure 155/69 H 166/60 H Blood Pressure Mean 97 95 Pulse Ox 96 96 Oxygen Delivery Method Room Air Room Air Positive well nourished and well developed General Appearance ED: well developed and NAD HEENT Reports normocephalic, head/scalp atraumatic and moist mucous membranes Eyes PERRL and EOMs intact bilaterally Neck supple Resp normal respiratory effort and clear to auscultation bilaterally Auscultation: Negative for rales, rhonchi or wheezes Cardio regular rate, regular rhythm and no murmurs GI normal to inspection, nondistended, normoactive bowel sounds and non-tender Palpation: soft; Negative for guarding or rebound tenderness present Back/Spine no CVA tenderness Extremity normal to inspection General Extremety ED: Negative for edema or tenderness General Extremity: Negative for edema Neuro CN's II-XII intact bilaterally and no sensory deficits noted Sensorium / Orientation: alert Motor Exam: strength 5/5 throughout Psych mental status grossly normal Skin no rashes or lesions noted Heart Score History: Slightly/Non-Suspicious ECG: Normal Age: >/= 65 years Risk Factors: >/= 3 Risk Factors or History of CAD Score: 4 MDM MDM MDM Narrative Medical decision making narrative: Patient presents to the ED for jordan sea/vomiting/diarrhea. She also developed episode of chest pain today. She has had this pain before. EKG, basic lab work, chest x-ray being obtained. She is started on IV fluids and Zofran for symptomatic treatment. Patient's lab work-up did not reveal her to be significantly anemic. She does not have a high white blood cell count. No acute electrolyte disturbance. Her troponin was high. Given her chest pain, elevated heart score and elevated troponin will bring her into the hospital for further evaluation and management. She is given a dose of aspirin. She otherwise has remained stable throughout ED stay. She understands and is agreeable with this plan. Lab Data Labs: Laboratory Results - last 24 hr 03/16/21 03/16/21 16:15 16:58 WBC 8.0 RBC 4.27 Hgb 11.9 L Hct 36.8 L MCV 86.2 MCH 27.9 MCHC 32.3 RDW Std Deviation 43.7 RDW Coeff of Yadira 13.9 Plt Count 239 MPV 9.3 Immature Gran % (Auto) 0.300 Neut % (Auto) 68.4 Lymph % (Auto) 23.6 [place] % (Auto) 5.9 Eos % (Auto) 1.3 Baso % (Auto) 0.5 Absolute Neuts (auto) 5.5 Absolute Lymphs (auto) 1.89 Nucleated RBC % 0 Sodium 140 Potassium 3.7 Chloride 107 Carbon Dioxide 28.0 Anion Gap 5 BUN 11 Creatinine 0.91 Estim Creat Clear Calc 60.90 Est GFR (MDRD) Af Amer 79 Est GFR (MDRD) Non-Af 65 BUN/Creatinine Ratio 12.1 Glucose 96 Calcium 8.9 Magnesium 2.2 Total Bilirubin 0.30 AST 18 ALT 17 Alkaline Phosphatase 77 Troponin I High Sens 157.9 H* Total Protein 7.4 Albumin 3.7 Globulin 3.7 Albumin/Globulin Ratio 1.0 Radiography Diagnostic Testing: Radiology Impression Chest X-Ray 03/16/21 16:59 IMPRESSION: No acute radiographic abnormalities. Electronically Signed: Neil Baker MD at 17:40 EDT Tel , Service support , Single view portable x-ray interpreted by myself. Clear lung dimas bilaterally. No effusion. Normal cardiac silhouette. Normal mediastinum. Agree with radiologist interpretation. EKG Initial EKG: Attestation: I personally reviewed and interpreted this EKG as follows: (Rate of 67 bpm normal sinus rhythm. Normal intervals. Normal axis. No significant ST elevations or depressions. No T wave abnormalities.) Discharge Plan Dx/Rx/DC Orders Clinical Impression: Chest pain, Nausea & vomiting, Diarrhea Disposition Disposition: Acute Care Hospital [facility] Discharge Date/Time: 03/16/21 19:33
[2021-03-16 17:17] LABS: AST(SGOT) 18 U/L (15-37); Alanine Aminotransfer ALT/SGPT 17 U/L (13-56); Albumin, Serum 3.7 g/dL (3.2-5.0); Alkaline Phosphatase 77 U/L (45-117); Anion Gap 5 (5-15); BUN 11 mg/dL (7-18); BUN/Creat Ratio 12.1 RATIO (10-20); Calcium,Total 8.9 mg/dL (8.5-10.1); Chloride 107 mmol/L (98-107); Creatinine, Serum 0.91 mg/dL (0.55-1.02); EST Glomerular Filtration Rate 65 mL/min (>60); Est Glom Filt Rate - Afr Amer 79 mL/min (>60); Globulin 3.7 g/dL (2.2-4.2); Glucose 96 mg/dL (74-106); Magnesium 2.2 mg/dL (1.6-2.6); Potassium 3.7 mmol/L (3.5-5.1); Protein, Total 7.4 g/dL (6.4-8.2); Sodium Level 140 mmol/L (136-145); Troponin-I HS 157.9 pg/mL (3.0-53.7)
[2021-03-16] MEDS: Aspirin 81 MG TAB.CHEW 324 MG PO (18:40)
--- NOTE | 2021-03-16 19:27 | ECHOD_ITS ---
Version 2 Reason For Study: Chest pain Procedure This was a 2D Doppler, Color Flow transthoracic echocardiogram. Exam performed portable in patient room. Left Ventricle Normal LV size. Left ventricular systolic function is normal. The estimated ejection fraction is 55 %. No regional wall motion abnormalities noted. Right Ventricle Normal RV size. Normal systolic function. Atria Normal left atrium. Normal right atrium. Patent foramen ovale. Mitral Valve Normal mitral valve. Mild (1+) eccentric mitral valve insufficiency. Tricuspid Valve Normal tricuspid valve. Mild (1+) tricuspid valve insufficiency. Pulmonary artery systolic pressure is 44 mmHg. Aortic Valve Trisinus/trileaflet aortic valve. Pulmonic Valve Normal pulmonic valve. Great Vessels Normal aortic root. The pulmonary artery is normal size. Normal inferior vena cava. Pericardium/Pleural No pericardial effusion. MMode/2D Measurements & Calculations LVIDd: 3.7 cm IVSd: 1.1 cm Ao root diam: 2.7 cm LVIDs: 2.4 cm LVPWd: 0.89 cm RVDd: 3.0 cm FS: 35.7 % LAV(MOD-bp): 51.1 ml LVAd ap4: 24.1 cm2 LVAd ap2: 25.7 cm2 LAV(MOD-bp) Indexed: 31.9 ml/m2 LVLd ap4: 7.8 cm LVLd ap2: 7.8 cm LAV(MOD-sp2): 41.2 ml EDV(MOD-sp4): 63.1 ml EDV(MOD-sp2): 69.5 ml LAV(MOD-sp4): 62.5 ml EDV(sp4-el): 63.2 ml EDV(sp2-el): 71.8 ml LVAs ap4: 13.4 cm2 LVAs ap2: 13.1 cm2 LVLs ap4: 6.7 cm LVLs ap2: 6.8 cm ESV(MOD-sp4): 22.6 ml ESV(MOD-sp2): 21.7 ml ESV(sp4-el): 22.7 ml ESV(sp2-el): 21.5 ml EF(MOD-sp4): 64.1 % EF(MOD-sp2): 68.7 % EF(sp4-el): 64.0 % SV(MOD-sp4): 40.4 ml SV(MOD-sp2): 47.8 ml SV(sp4-el): 40.4 ml LA dimension(2D): 4.8 cm LA A4 area: 20.4 cm2 RA A4 area: 14.3 cm2 Doppler Measurements & Calculations MV E max chava: 72.2 cm/sec Lat Peak E' Chava: 10.3 cm/sec Med Peak E' Chava: 10.6 cm/sec MV A max chava: 62.6 cm/sec E/E' lat: 7.0 E/E' med: 6.8 MV E/A: 1.2 Ao V2 max: 110.0 cm/sec LV V1 max: 82.3 cm/sec PA V2 max: 95.9 cm/sec Ao max P.8 mmHg LV V1 max P.7 mmHg TR max chava: 327.4 cm/sec TR max P.8 mmHg ECHO/Echo Complete Interpretation Summary Normal LV size. Left ventricular systolic function is normal. The estimated ejection fraction is 55 %. Mild (1+) eccentric mitral valve insufficiency. Patent foramen ovale. Pulmonary artery systolic pressure is 44 mmHg. Ordering Physician: Naomy Harden Referring Physician: Neil Coronado MD Performed By: Amy Hartman RDCS
--- NOTE | 2021-03-16 19:28 | HP.PCM_ITS ---
Documented by User: Naomy Harden NP-C 03/16/21 20:02 HPI - General General Date of Admission: 03/16/21 Date of Service: 03/16/21 Chief Complaint: Chest pain HPI Narrative EVELIN SANDHU, is a 70 F who presents with complaints of chest pain with concurrent nausea, vomiting, diarrhea and diaphoresis. Patient states that she had a similar episode approximately 2 weeks ago which quickly resolved. Patient states she was outside working in her flower bed today when she began to get a sharp shooting substernal chest pain 04/14 which is worsened by laying flat and improved by sitting up. Patient states immediately before chest pain began she became diaphoretic and nauseous. Patient states that she vomited twice after the onset of chest pain. Patient states that she was recently initiated on medications for her blood pressure but prior to that she had not had any cardiac issues. Patient denies fever, chills, shortness of breath, cough. [facility] Medical History (Updated 03/16/21 @ 19:49 by Naomy Harden, ENOCH-C) Anxiety Asthma Chest pain Chronic pain Degenerative lumbar spinal stenosis Depression GERD (gastroesophageal reflux disease) High cholesterol Hypertension Non-smoker Osteoarthritis Osteoporosis Screening for colon cancer Home Medications albuterol sulfate 2 puff IH PRN PRN 11/04/16 [History Last Taken Unknown] ascorbic acid (vitamin C) 500 mg PO DAILY@0800 11/04/16 [History Last Taken 03/15/21] atorvastatin 20 mg PO QHS 11/04/16 [History Last Taken 03/15/21] cholecalciferol (vitamin D3) 6,000 unit PO DAILY 11/04/16 [History Last Taken 03/15/21] citalopram 20 mg PO DAILY 11/04/16 [History Last Taken 03/15/21] fish oil-dha-epa 1 ea PO DAILY 11/04/16 [History Last Taken 03/16/21] fluticasone furoate-vilanterol 1 puff IH DAILY 11/04/16 [History Last Taken 03/16/21] levothyroxine 112 mcg PO DAILY 11/04/16 [History Last Taken 03/16/21] melatonin-pyridoxine (vit B6) 1 ea PO QHS 11/04/16 [History Last Taken Unknown] meloxicam 7.5 mg PO DAILY 11/04/16 [History Last Taken 03/15/21] mv,Ca,min-folic acid-vit K1 1 ea PO DAILY 11/04/16 [History Last Taken 03/16/21] venlafaxine 37.5 mg PO QHS 11/04/16 [History Last Taken 03/15/21] vitamin E 400 unit PO DAILY 11/04/16 [History Last Taken 03/16/21] calcium carbonate-vitamin D3 2 tab PO QHS 11/08/16 [History Last Taken 03/15/21] famotidine 40 mg PO QHS 03/16/21 [History Last Taken 03/15/21] gabapentin 100 mg PO TID 03/16/21 [History Last Taken 03/16/21] losartan 50 mg PO DAILY 03/16/21 [History Last Taken 03/16/21] Allergy/AdvReac Type Severity Reaction Status Date / Time codeine Allergy Rash Verified 03/16/21 16:18 [email or web address] subsalicylate AdvReac Nausea/Vom/ Verified 03/16/21 16:18 [From Pepto-Bismol] Diarrhea diphenhydramine HCl AdvReac Nausea/Vom/ Verified 03/16/21 16:18 [From Benadryl] Diarrhea simvastatin [From Zocor] AdvReac Nausea Verified 03/16/21 16:18 Surgical History H/O thyroidectomy History of appendectomy Social History Smoking Status: Never smoker ROS Constitutional Constitutional: Denies anorexia, chills, fever(s) or weakness Cardiovascular Cardiovascular: Reports chest pain, diaphoresis, lightheadedness, nausea and vomiting; Denies edema or palpitations Respiratory/Chest Respiratory/Chest: Denies cough, shortness of breath at rest or shortness of b reath with exertion Gastrointestinal Gastrointestinal: Reports diarrhea; Denies abdominal pain or constipation Genitourinary Genitourinary: Denies dysuria Musculoskeletal Musculoskeletal: Denies back pain, extremity pain, joint pain or joint stiffness Integumentary Integumentary: Denies dry skin Neurologic Neurologic: Denies abnormal gait, abnormal speech, confusion or dizziness Psychiatric Psychiatric: Denies anxiety or depression Endocrine Endocrinology: Denies change in body appearance Hematologic/Lymphatic Hematologic/Lymphatic: Denies easy bleeding or easy bruising Vital Signs Vital Signs Vital Signs: 03/16/21 16:08 03/16/21 16:18 03/16/21 16:51 Temperature 98.5 F Temperature Source Oral Pulse Rate 67 Respiratory Rate 17 Respiratory Effort Normal Respiratory Pattern Normal Blood Pressure 158/76 H Blood Pressure Mean 103 Pulse Ox 95 98 Oxygen Delivery Method Room Air Room Air 03/16/21 17:28 03/16/21 18:42 03/16/21 19:09 Temperature 98.1 F 98.1 F Temperature Source Oral Oral Pulse Rate 63 63 63 Respiratory Rate 18 16 16 Respiratory Effort Respiratory Pattern Blood Pressure 155/69 H 166/60 H 166/60 H Blood Pressure Mean 97 95 95 Pulse Ox 96 96 96 Oxygen Delivery Method Room Air Room Air Room Air Weight Weight: 150 lb Body Mass Index (BMI) 33.6 Physical Exam Const alert and oriented x3 General Appearance: cooperative HEENT normocephalic and head/scalp atraumatic Eyes conjunctivae normal and no scleral icterus Neck supple and no JVD General: trachea midline Resp normal respiratory effort, normal air movement and clear to auscultation bilaterally Cardio regular rate, regular rhythm, S1 normal heart sound, S2 normal heart sound and no murmurs GI normal to inspection, nondistended, normoactive bowel sounds, soft to palpation and non-tender Extremity normal capillary refill and no clubbing, cyanosis or edema General Extremity: no tenderness to palpation of joints or extremities Skin General Skin Exam: no breakdown and turgor normal Lesions: no lesions Rashes: no rashes Neuro no focal motor deficits and no sensory deficits noted Speech: speech normal Motor Exam: general weakness Psych thought process normal, cooperative and affect normal Appearance: appropriate Results Lab / Micro Data Result Diagrams: 03/16/21 16:58 03/16/21 16:15 Labs: Laboratory Results - last 24 hr 03/16/21 16:15: Sodium 140, Potassium 3.7, Chloride 107, Carbon Dioxide 28.0, Anion Gap 5, BUN 11, Creatinine 0.91, Estim Creat Clear Calc 60.90, Est GFR (MDRD) Af Amer 79, Est GFR (MDRD) Non-Af 65, BUN/Creatinine Ratio 12.1, Glucose 96, Calcium 8.9, Magnesium 2.2, Total Bilirubin 0.30, AST 18, ALT 17, Alkaline Phosphatase 77, Troponin I High Sens 157.9 H*, Total Protein 7.4, Albumin 3.7, Globulin 3.7, Albumin/Globulin Ratio 1.0 03/16/21 16:58: WBC 8.0, RBC 4.27, Hgb 11.9 L, Hct 36.8 L, MCV 86.2, MCH 27.9, MCHC 32.3, RDW Std Deviation 43.7, RDW Coeff of Yadira 13.9, Plt Count 239, MPV 9.3, Immature Gran % (Auto) 0.300, Neut % (Auto) 68.4, Lymph % (Auto) 23.6, [place] % (Auto) 5.9, Eos % (Auto) 1.3, Baso % (Auto) 0.5, Absolute Neuts (auto) 5.5, Absolute Lymphs (auto) 1.89, Nucleated RBC % 0 Radiology Impression Chest X-Ray 03/16/21 16:59 IMPRESSION: No acute radiographic abnormalities. Electronically Signed: Neil Baker MD at 17:40 EDT Tel , Service support , Assessment & Plan Assessment/Plan (1) Chest pain: QUALIFIERS: Chest pain type: unspecified Qualified Code(s): R07.9 - Chest pain, unspecified PLAN: 1. Chest pain -Admit to PCU for cardiac monitoring -Due to presentation will obtain a high-sensitivity CRP and ESR for evaluation for pericarditis -Echocardiogram ordered for a.m. -CBC, BMP, lipid panel ordered for a.m. -Trend cardiac enzymes, initial value 157.9 -Consult cardiology, case discussed with Dr. Newberry -Will initiate patient on 325 mg aspirin, first dose given in ER -Cardiac diet ordered, patient will be n.p.o. at midnight pending evaluation for further work-up 2. Diarrhea -Enteric pathogen panel and C. difficile stool testing ordered to rule out infectious source -Strict intake and output -Social contact precautions ordered pending results of enteric pathogen and C. difficile testing 2. Hypertension -Patient recently initiated on losartan 50 mg p.o. daily we will continue -As needed hydralazine ordered due to elevated blood pressure on initial presentation -Vital signs per protocol trend BP and heart rate 3. Hyperlipidemia -Continue atorvastatin -Obtain lipid panel in a.m. 4. Anxiety -Continue citalopram and venlafaxine 5. Chronic pain due to lumbar spinal stenosis -Continue meloxicam, gabapentin. 6. Asthma -Continue fluticasone. -As needed albuterol nebulizer treatments ordered -Currently asymptomatic -O2 per protocol -Encourage incentive spirometer 7. Hypothyroidism -TSH on 09/08/2020 1.12 -Continue current dose of levothyroxine DVT prophylaxis-SCDs This patient was seen by LINA Nowak under the supervision of Dr. Colon. Documented by User: Dr. Willie Colon MD 03/16/21 20:46 HPI - General General Date of Admission: 03/16/21 [facility] Medical History (Updated 03/16/21 @ 19:49 by Naomy Harden NP-C) Anxiety Asthma Chest pain Chronic pain Degenerative lumbar spinal stenosis Depression GERD (gastroesophageal reflux disease) High cholesterol Hypertension Non-smoker Osteoarthritis Osteoporosis Screening for colon cancer Home Medications albuterol sulfate 2 puff IH PRN PRN 11/04/16 [History Last Taken Unknown] ascorbic acid (vitamin C) 500 mg PO DAILY@0800 11/04/16 [History Last Taken 03/15/21] atorvastatin 20 mg PO QHS 11/04/16 [History Last Taken 03/15/21] cholecalciferol (vitamin D3) 6,000 unit PO DAILY 11/04/16 [History Last Taken 03/15/21] citalopram 20 mg PO DAILY 11/04/16 [History Last Taken 03/15/21] fish oil-dha-epa 1 ea PO DAILY 11/04/16 [History Last Taken 03/16/21] fluticasone furoate-vilanterol 1 puff IH DAILY 11/04/16 [History Last Taken 03/16/21] levothyroxine 112 mcg PO DAILY 11/04/16 [History Last Taken 03/16/21] melatonin-pyridoxine (vit B6) 1 ea PO QHS 11/04/16 [History Last Taken Unknown] meloxicam 7.5 mg PO DAILY 11/04/16 [History Last Taken 03/15/21] mv,Ca,min-folic acid-vit K1 1 ea PO DAILY 11/04/16 [History Last Taken 03/16/21] venlafaxine 37.5 mg PO QHS 11/04/16 [History Last Taken 03/15/21] vitamin E 400 unit PO DAILY 11/04/16 [History Last Taken 03/16/21] calcium carbonate-vitamin D3 2 tab PO QHS 11/08/16 [History Last Taken 03/15/21] famotidine 40 mg PO QHS 03/16/21 [History Last Taken 03/15/21] gabapentin 100 mg PO TID 03/16/21 [History Last Taken 03/16/21] losartan 50 mg PO DAILY 03/16/21 [History Last Taken 03/16/21] Allergy/AdvReac Type Severity Reaction Status Date / Time codeine Allergy Rash Verified 03/16/21 16:18 [email or web address] subsalicylate AdvReac Nausea/Vom/ Verified 03/16/21 16:18 [From Pepto-Bismol] Diarrhea diphenhydramine HCl AdvReac Nausea/Vom/ Verified 03/16/21 16:18 [From Benadryl] Diarrhea simvastatin [From Zocor] AdvReac Nausea Verified 03/16/21 16:18 Surgical History H/O thyroidectomy History of appendectomy Social History Smoking Status: Never smoker Results Lab / Micro Data Result Diagrams: 03/16/21 16:58 03/16/21 16:15 Charges/Coding Addendum Addendum: Patient was seen and examined independently. I agree with assessment and plan by Naomy Harden NP-C Patient is a 70-year-old female with a significant history of hypertension; hyp erlipidemia; asthma who presents to emergency department with substernal chest pain that started about 3 hours before presentation. She describes her chest pain as sharp and severe. The chest pain is nonradiating. She realized that she had a chest pain when she woke up from her sleep. The chest pain is aggravated with lying down and improves with her sitting up. The chest pain is persistent. At time of examination her chest pain had eased up. At the same time when she had chest pain she also had lightheadedness and vomiting. She also reported that in the last 3 days she has been having multiple loose stools and vomiting. Of note 2 weeks ago patient had another episode of chest pain. This time around it was with exertion. Associated with symptoms was lightheadedness and vomiting. Her symptoms at that time resolved after 2 days. Of note about 2 to 3 weeks ago patient was diagnosed with hypertension and was started on losartan. She reports chronic insomnia. Physical exam: General: Well-nourished, well-developed, no acute distress Head: Normocephalic, atraumatic, no tenderness Eyes: PERRLA, EOMI ENT, no trauma, moist mucous membranes, no rhinorrhea Neck: Nontender, full range of motion, no spinal tenderness, deformities, step- off CVS: Regular rate and rhythm Respiratory no acute distress, clear to auscultation bilaterally, chest wall nontender, no wheezing Abdomen: Soft, nontender, nondistended, normal bowel sounds, no masses : Deferred Extremities: Nontender full range of motion, no trauma Skin: Normal color, no trauma, abrasions Neuro: Alert, oriented, cranial nerves II through XII grossly intact. Chest pain Diagnoses include unstable angina; non-ST elevation [place]; GERD; costochondritis; pericarditis or other. Place on a monitored bed at progressive care unit Actual CXR image was independently visualized. No acute cardiopulmonary process was noted. Actual EKG tracing was independently visualized. EKG tracing showed no ST or T of abnormalities. Received aspirin 324 mg at emergency department; and continued. On home Pepcid. Changed to Protonix 40 mg IV daily. Cardiology consult. Per cardiology recommendations high-sensitivity CRP will be ordered. ESR ordered. Check echocardiogram. We will check lipid panel. Continue home Lipitor. Initial high-sensitivity troponin was elevated. Serial cardiac enzymes ordered Stat EKG as needed for chest pain Cardiology consult Hypertensive emergency Hydralazine as needed. Losartan continued. Viral gastroenteritis Stool studies ordered. Gentle IV hydration. DVT prophylaxis: SCD Visit Charges OBSV E&M: [id number] Initial observation care L3
--- NOTE | 2021-03-16 20:36 | NURSING ---
Pt c/o chest pain. nonradiating. said it is a 4. refused nitro and tylenol at this time
--- NOTE | 2021-03-16 21:30 | CON.PCM.CA_ITS ---
Assessment & Plan Assessment/Plan (1) Chest pain: QUALIFIERS: Chest pain type: unspecified Qualified Code(s): R07.9 - Chest pain, unspecified PLAN: Patient presents with chest pain which is sharp and worse on lying flat. She does not have any previous cardiac history. Cardiac enzyme initially was noted to be abnormal. It be prudent for us to exclude pericardial disease with a high-sensitivity C-reactive protein and ESR. This is especially since she appears to have some possible viral enteritis. * An echocardiogram should be performed to exclude a pericardial effusion * Serial EKG monitoring would continue. * Depending on her clinical course further recommendations will be made. (2) Hypertension: PLAN: She does have a history of recently diagnosed hypertension. She has been started on losartan and this will be continued in the meantime. * Would recommend an echocardiogram to assess her ventricular function. * * Thank you for allowing me to participate in the care of your patient. Please don't hesitate to call if any issues arise. HPI Consult Data Date of Consult: 03/16/21 HPI Narrative HPI Narrative: EVELIN SANDHU, is a 70 F who presents to the emergency room with a history of nausea diaphoresis vomiting and diarrhea. She also complained of chest discomfort which started today while she was working in her flower bed. She specifically says that this pain is sharp and radiates towards her left shoulder. It appears to be worse when she lies flat on her back and improves when she is sitting up. She has not had any recent upper respiratory tract infection. She also has taken both Covid shots. She denies any fever or headache and has not had any cough cold or runny nose symptoms. She did say that she had an episode of chest discomfort about 2 weeks ago. She was admitted through the emergency room was noted to have abnormal cardiac enzymes and cardiology was called for further evaluation. The EKG was reviewed and I instructed them to obtain a high-sensitivity C-reactive protein, hold Lovenox, continue aspirin and continue serial cardiac enzymes. [facility] Medical History (Updated 03/16/21 @ 21:[address] Zion Newberry MD) Anxiety Asthma Chest pain Chronic pain Degenerative lumbar spinal stenosis Depression GERD (gastroesophageal reflux disease) High cholesterol Hypertension Non-smoker Osteoarthritis Osteoporosis Screening for colon cancer Home Medications albuterol sulfate 2 puff IH PRN PRN 11/04/16 [History Last Taken Unknown] ascorbic acid (vitamin C) 500 mg PO DAILY@0800 11/04/16 [History Last Taken 03/15/21] atorvastatin 20 mg PO QHS 11/04/16 [History Last Taken 03/15/21] cholecalciferol (vitamin D3) 6,000 unit PO DAILY 11/04/16 [History Last Taken 03/15/21] citalopram 20 mg PO DAILY 11/04/16 [History Last Taken 03/15/21] fish oil-dha-epa 1 ea PO DAILY 11/04/16 [History Last Taken 03/16/21] fluticasone furoate-vilanterol 1 puff IH DAILY 11/04/16 [History Last Taken 03/16/21] levothyroxine 112 mcg PO DAILY 11/04/16 [History Last Taken 03/16/21] melatonin-pyridoxine (vit B6) 1 ea PO QHS 11/04/16 [History Last Taken Unknown] meloxicam 7.5 mg PO DAILY 11/04/16 [History Last Taken 03/15/21] mv,Ca,min-folic acid-vit K1 1 ea PO DAILY 11/04/16 [History Last Taken 03/16/21] venlafaxine 37.5 mg PO QHS 11/04/16 [History Last Taken 03/15/21] vitamin E 400 unit PO DAILY 11/04/16 [History Last Taken 03/16/21] calcium carbonate-vitamin D3 2 tab PO QHS 11/08/16 [History Last Taken 03/15/21] famotidine 40 mg PO QHS 03/16/21 [History Last Taken 03/15/21] gabapentin 100 mg PO TID 03/16/21 [History Last Taken 03/16/21] losartan 50 mg PO DAILY 03/16/21 [History Last Taken 03/16/21] Allergy/AdvReac Type Severity Reaction Status Date / Time codeine Allergy Rash Verified 03/16/21 16:18 [email or web address] subsalicylate AdvReac Nausea/Vom/ Verified 03/16/21 16:18 [From Pepto-Bismol] Diarrhea diphenhydramine HCl AdvReac Nausea/Vom/ Verified 03/16/21 16:18 [From Benadryl] Diarrhea simvastatin [From Zocor] AdvReac Nausea Verified 07/12/21 16:18 Surgical History H/O thyroidectomy History of appendectomy Social History Smoking Status: Never smoker ROS Constitutional Constitutional: Denies fever(s) or weight loss Eyes Eyes: Reports systems reviewed and no addt'l complaints, except as documented ENT HEENT: Reports systems reviewed and no addt'l complaints, except as documented Cardiovascular Cardiovascular: Reports chest pain, chest pain at rest, chest pain with activity and other Respiratory/Chest Respiratory/Chest: Reports other Gastrointestinal Gastrointestinal: Reports cramping, diarrhea, nausea and vomiting Genitourinary Genitourinary: Denies difficulty urinating Musculoskeletal Musculoskeletal: Denies joint stiffness or muscle weakness Integumentary Integumentary: Denies lesions Neurologic Neurologic: Denies dizziness or syncope Psychiatric Psychiatric: Denies anxiety Endocrine Endocrinology: Denies excessive sweating or fatigue Hematologic/Lymphatic Hematologic/Lymphatic: Denies anemia Allergic/Immunologic Allergic/Immunologic: Denies seasonal rhinorrhea Physical Exam Const oriented x3 and healthy appearing Orientation / Consciousness: awake HEENT normocephalic Eyes PERRL and conjunctivae normal Neck supple, no JVD and no carotid bruits Chest inspection of chest normal Resp normal respiratory effort and clear to auscultation bilaterally Cardio Palpation: normal PMI Rate: regular rate Rhythm: regular rhythm Heart Sounds: S1 normal and S2 normal Peripheral Pulses: pulses 2+ throughout GI normal to inspection, nondistended, normoactive bowel sounds Extremity normal to inspection and no clubbing, cyanosis or edema Psych mental status grossly normal Objective Data Vital Signs: Vital Signs Temp Pulse Resp BP Pulse Ox 98.4 F 62 16 188/56 H 96 03/16/21 19:54 03/16/21 19:54 03/16/21 19:54 03/16/21 19:54 03/16/21 19:57 Oxygen Delivery Method Room Air Weight: 157 lb 3.2 oz Body Mass Index (BMI) 35.2 Intake & Output: Intake and Output for Last 24 Hours 03/14/21 03/15/21 03/16/21 23:59 23:59 23:59 Intake Total 1000 / 1000 Balance 1000 / 1000 Lab / Micro Data Result Diagrams: 03/16/21 16:58 03/16/21 16:15 Labs: Laboratory Results - last 24 hr 03/16/21 16:15: Sodium 140, Potassium 3.7, Chloride 107, Carbon Dioxide 28.0, Anion Gap 5, BUN 11, Creatinine 0.91, Estim Creat Clear Calc 60.90, Est GFR (MDRD) Af Amer 79, Est GFR (MDRD) Non-Af 65, BUN/Creatinine Ratio 12.1, Glucose 96, Calcium 8.9, Magnesium 2.2, Total Bilirubin 0.30, AST 18, ALT 17, Alkaline Phosphatase 77, Troponin I High Sens 157.9 H*, Total Protein 7.4, Albumin 3.7, Globulin 3.7, Albumin/Globulin Ratio 1.0 03/16/21 16:58: WBC 8.0, RBC 4.27, Hgb 11.9 L, Hct 36.8 L, MCV 86.2, MCH 27.9, MCHC 32.3, RDW Std Deviation 43.7, RDW Coeff of Yadira 13.9, Plt Count 239, MPV 9.3, Immature Gran % (Auto) 0.300, Neut % (Auto) 68.4, Lymph % (Auto) 23.6, [place] % (Auto) 5.9, Eos % (Auto) 1.3, Baso % (Auto) 0.5, Absolute Neuts (auto) 5.5, Absolute Lymphs (auto) 1.89, Nucleated RBC % 0 Micro: Microbiology 03/16/21 19:50 Mucosa - Nose SARS-CoV-2 Antigen (Rapid) - Final Cardiology Labs/Tests 03/16/21 16:15: Sodium 140, Potassium 3.7, Chloride 107, Carbon Dioxide 28.0, Anion Gap 5, BUN 11, Creatinine 0.91, Est GFR (MDRD) Af Amer 79, Est GFR (MDRD) Non-Af 65, BUN/Creatinine Ratio 12.1, Glucose 96, Calcium 8.9, Magnesium 2.2, Total Bilirubin 0.30 03/16/21 16:58: WBC 8.0, RBC 4.27, Hgb 11.9 L, Hct 36.8 L, MCV 86.2, MCH 27.9, MCHC 32.3, Plt Count 239, MPV 9.3, Immature Gran % (Auto) 0.300, Neut % (Auto) 68.4, Lymph % (Auto) 23.6, [place] % (Auto) 5.9, Eos % (Auto) 1.3, Baso % (Auto) 0.5, Absolute Neuts (auto) 5.5, Nucleated RBC % 0 Rhythm: EKG: Normal sinus rhythm with no acute changes. ECHO: Stress Test: Cardiac Cath: PCI: CT Surgery: Holter monitor: EPS: PPM: CXR: Chest CT Scan: Radiography Diagnostic Testing: Radiology Impression Chest X-Ray 03/16/21 16:59 IMPRESSION: No acute radiographic abnormalities. Electronically Signed: Neil Baker MD at 17:40 EDT Tel , Service support ,
[2021-03-16] MEDS: 0.9% Normal Saline 1,000 ML 100 ML IV (21:41)
[2021-03-16] MEDS: Atorvastatin Calcium 20 MG Tablet PO (21:42)
[2021-03-16] MEDS: Gabapentin 100 MG Capsule PO (21:42)
[2021-03-16 21:44] LABS: CRP, High Sensitivity Cardiac 6.02 mg/L; Cholesterol 164 mg/dL (200); High Density Lipoprotein 60 mg/dL; Triglycerides 120 mg/dL; Troponin-I HS 632.3 pg/mL (3.0-53.7); Very Low Density Lipoprotein 24 mg/dL (5-40)
[2021-03-16 21:52] LABS: Erythrocyte Sedimentation Rate 25 mm/hr (0-30)
--- NOTE | 2021-03-16 22:39 | EKG12_ITS ---
Test Reason : Blood Pressure : / mmHG Vent. Rate : 061 BPM Atrial Rate : 061 BPM P-R Int : 156 ms QRS Dur : 084 ms QT Int : 438 ms P-R-T Axes : 038 009 025 degrees QTc Int : 440 ms Sinus rhythm with Premature atrial complexes Otherwise normal ECG Confirmed by TYRONE DAVILA, EDEL ([id number]), material expeditor AALIYAH RO ([id number]) on 03/18/2021 11:52:52 AM Referred By: JERRI Confirmed By:EDEL HANSEN MD
[2021-03-16] MEDS: Enoxaparin 80 MG/0.8 ML Syringe 70 MG SC (23:09)
[2021-03-16 23:50] LABS: Troponin-I HS 681.6 pg/mL (3.0-53.7)
[2021-03-17] VITALS (11 sets, daily range): BP systolic 135–171; BP diastolic 59–109; PULSE 57–68; RESP 17–20; TEMP 35.9–36.7; O2SAT 93–100
[2021-03-17 03:15] LABS: Absolute Lymphocyte Count 2.68 X10^3/uL (0.83-4.51); Absolute Neutrophil Count 3.2 X10^3/uL (2.0-7.7); Basophil# 0.03 X10^3/uL; Basophil% 0.5 % (0-1); Eosinophil# 0.19 X10^3/uL; Eosinophils% 2.9 % (0-5); Hematocrit 35.7 % (37-47); Hemoglobin 11.3 g/dL (12.0-15.0); Lymphocyte # 2.68 X10^3/ul (0.83-4.51); Lymphocyte % 40.5 % (19-41); Mean Corp Hgb Conc 31.7 g/dL (32-36); Mean Corpuscular Volume 88.4 fL (81-99); Mean Platelet Vol. 9.3 fl (6.2-12.0); Monocyte# 0.49 X10^3/uL; Monocyte% 7.4 % (0-10); NRBC Flagged by Analyzer 0 % (0-5); Neutrophil % 48.4 % (47-70); Platelet Count 224 K/mm3 (150-450); RBC Distribution Width SD 45.4 fl (35.1-43.9); Red Blood Count 4.04 M/mm3 (4.2-5.4); White Blood Count 6.6 K/mm3 (4.4-11.0)
[2021-03-17 04:08] LABS: Anion Gap 6 (5-15); BUN 12 mg/dL (7-18); Calcium,Total 8.3 mg/dL (8.5-10.1); Chloride 112 mmol/L (98-107); EST Glomerular Filtration Rate 75 mL/min (>60); Est Glom Filt Rate - Afr Amer 91 mL/min (>60); Glucose 100 mg/dL (74-106); Potassium 3.3 mmol/L (3.5-5.1); Sodium Level 145 mmol/L (136-145)
[2021-03-17 04:11] LABS: Troponin-I HS 568.5 pg/mL (3.0-53.7)
[2021-03-17] MEDS: Levothyroxine 112 MCG Tablet PO (05:31)
[2021-03-17] MEDS: Gabapentin 100 MG Capsule PO ×2 (05:31→14:21)
[2021-03-17] MEDS: Budesonide Respules 0.5 MG/2 ML AMPUL.NEB. INHALATION (07:27)
[2021-03-17] MEDS: Albuterol 2.5 MG/3 ML VIAL.NEB. INHALATION (07:27)
--- NOTE | 2021-03-17 07:31 | EKG12_ITS ---
Test Reason : CP ADMISSION Blood Pressure : / mmHG Vent. Rate : 060 BPM Atrial Rate : 060 BPM P-R Int : 186 ms QRS Dur : 084 ms QT Int : 426 ms P-R-T Axes : 050 005 021 degrees QTc Int : 426 ms Normal sinus rhythm Normal ECG Confirmed by TYRONE DAVILA, EDEL ([id number]), primer expeditor and drier AALIYAH RO ([id number]) on 03/18/2021 11:54:16 AM Referred By: OLIVIA Confirmed By:EDEL HANSEN MD
[2021-03-17] MEDS: 0.9% Normal Saline 1,000 ML 100 ML IV (07:59)
[2021-03-17] MEDS: Losartan Potassium 50 MG Tablet PO (08:00)
[2021-03-17] MEDS: Aspirin 81 MG TAB.CHEW PO (08:00)
--- NOTE | 2021-03-17 09:22 | CL.D_ITS ---
Patient Name: EVELIN SANDHU Study Date: 03/17/2021 Performing: Zion Newberry MD Ht: 55.9 inches 142 cm : 1950 Wt: 156.53 lbs 71 kg Age: 70 Gender: female BSA: 1.6 PROCEDURE(S) PERFORMED [id number]/LV CLINICAL PROFILE AND INDICATIONS Indications: Suspected CAD Heart Failure: None Stress/Imaging Stress/Image Study Performed: No CONCLUSIONS Normal coronary arteries RECOMMENDATIONS Medical therapy Will treat as pericariditis DESCRIPTION OF PROCEDURE The patient arrived to the procedure lab. The risks and benefits of the procedure as well as a full d escription of our services here and current unavailability of surgical backup were fully explained to the patient and/or their significant other prior to the catheterization. The Timeout was completed, verifying the correct patient and procedure. The patient's procedural site was prepped and draped in the usual fashion. Local anesthetic was given subcutaneously to right radial region with Lidocaine 2% . Using a modified Seldinger technique, arterial access was obtained via the right radial artery, a 6 Fr sheath was inserted. Right Coronary Artery selective angiography was then performed in multiple v iews using a 5 Fr. 4.0 [place] catheter. Left Coronary Artery selective angiography was performed in mu ltiple views using a 5 Fr. JL4 catheter. Left Ventriculography was performed in [place] projection using a 5 Fr. Pigtail catheter. LV to AO pullback pressures were then recorded.The arterial sheath was pulled and a TR Band was applied for hemostasis CORONARY ANGIOGRAPHY DOMINANCE: Right Dominant LEFT HEART ASSESSMENT Left Ventricular Ejection Fraction: by LV Gram 60 % Normal LV wall motion Normal Left Ventricular systolic function Normal Left Ventricular systolic function LEFT MAIN: Angiographically normal LEFT ANTERIOR DESCENDING ARTERY: Angiographically normal CIRCUMFLEX ARTERY: Angiographically normal RIGHT CORONARY ARTERY: Angiographically normal COMPLICATIONS No Complications PROCEDURE MEDICATIONS Fentanyl 50 mcg IV Versed 1 mg IV Oxygen: 2 L/min via nasal cannula SUMMARY OF HEMODYNAMIC DATA Time AIR REST ECG 08:40:22 AO 166/76 (113) SA 08:59:22 LV 161/2, 11 09:11:36 LV 161/1, 10 09:11:42 LV 154/2, 11 09:13:16 LVp 160/10, 24 09:13:22 AOp 162/66 (105) 09:13:27 Signed By Zion Newberry MD On 03/17/2021 9:21:34 AM Zion Newberry MD
--- NOTE | 2021-03-17 09:22 | PN.CARD_ITS ---
Subjective Subjective Patient seen and evaluated. Underwent cardiac catheterization today. Objective Data Vital Signs: Vital Signs Temp Pulse Resp BP Pulse Ox 96.6 F L 65 18 171/81 H 98 03/17/21 08:00 03/17/21 08:00 03/17/21 08:00 03/17/21 08:00 03/17/21 08:00 Oxygen Delivery Method Room Air Weight: 157 lb 3.2 oz Body Mass Index (BMI) 35.2 Intake & Output: Intake and Output for Last 24 Hours 03/15/21 03/16/21 03/17/21 23:59 23:59 23:59 Intake Total 1430 / 1430 1060 / 1060 Balance 1430 / 1430 1060 / 1060 Lab / Micro Data Result Diagrams: 03/17/21 03:08 03/17/21 03:08 Labs: Laboratory Results - last 24 hr 03/16/21 16:15: Sodium 140, Potassium 3.7, Chloride 107, Carbon Dioxide 28.0, Anion Gap 5, BUN 11, Creatinine 0.91, Estim Creat Clear Calc 60.90, Est GFR (MDRD) Af Amer 79, Est GFR (MDRD) Non-Af 65, BUN/Creatinine Ratio 12.1, Glucose 96, Calcium 8.9, Magnesium 2.2, Total Bilirubin 0.30, AST 18, ALT 17, Alkaline Phosphatase 77, Troponin I High Sens 157.9 H*, Total Protein 7.4, Albumin 3.7, Globulin 3.7, Albumin/Globulin Ratio 1.0 03/16/21 16:58: WBC 8.0, RBC 4.27, Hgb 11.9 L, Hct 36.8 L, MCV 86.2, MCH 27.9, MCHC 32.3, RDW Std Deviation 43.7, RDW Coeff of Yadira 13.9, Plt Count 239, MPV 9.3, Immature Gran % (Auto) 0.300, Neut % (Auto) 68.4, Lymph % (Auto) 23.6, Fountain % (Auto) 5.9, Eos % (Auto) 1.3, Baso % (Auto) 0.5, Absolute Neuts (auto) 5.5, Absolute Lymphs (auto) 1.89, Nucleated RBC % 0 03/16/21 16:58: ESR 25 03/16/21 20:50: Troponin I High Sens 632.3 H*, C-React Prot High Sens 6.02 H, Triglycerides 120, Cholesterol 164, LDL Cholesterol 80, VLDL Cholesterol 24, HDL Cholesterol 60 03/16/21 23:00: Troponin I High Sens 681.6 H* 03/17/21 03:08: WBC 6.6, RBC 4.04 L, Hgb 11.3 L, Hct 35.7 L, MCV 88.4, MCH 28.0, MCHC 31.7 L, RDW Std Deviation 45.4 H, RDW Coeff of Yadira 14.0, Plt Count 224, MPV 9.3, Immature Gran % (Auto) 0.300, Neut % (Auto) 48.4, Lymph % (Auto) 40.5, Fountain % (Auto) 7.4, Eos % (Auto) 2.9, Baso % (Auto) 0.5, Absolute Neuts (auto) 3.2, Absolute Lymphs (auto) 2.68, Nucleated RBC % 0 03/17/21 03:08: Sodium 145, Potassium 3.3 L, Chloride 112 H, Carbon Dioxide 27.0, Anion Gap 6, BUN 12, Creatinine 0.80, Estim Creat Clear Calc 72.60, Est GFR (MDRD) Af Amer 91, Est GFR (MDRD) Non-Af 75, BUN/Creatinine Ratio 15.0, Glucose 100, Calcium 8.3 L 03/17/21 03:08: Troponin I High Sens 568.5 H* Micro: Microbiology 03/16/21 19:50 Mucosa - Nose SARS-CoV-2 Antigen (Rapid) - Final Cardiology Labs/Tests 03/16/21 16:15: Sodium 140, Potassium 3.7, Chloride 107, Carbon Dioxide 28.0, Anion Gap 5, BUN 11, Creatinine 0.91, Est GFR (MDRD) Af Amer 79, Est GFR (MDRD) Non-Af 65, BUN/Creatinine Ratio 12.1, Glucose 96, Calcium 8.9, Magnesium 2.2, Total Bilirubin 0.30 03/16/21 16:58: WBC 8.0, RBC 4.27, Hgb 11.9 L, Hct 36.8 L, MCV 86.2, MCH 27.9, MCHC 32.3, Plt Count 239, MPV 9.3, Immature Gran % (Auto) 0.300, Neut % (Auto) 68.4, Lymph % (Auto) 23.6, Fountain % (Auto) 5.9, Eos % (Auto) 1.3, Baso % (Auto) 0.5, Absolute Neuts (auto) 5.5, Nucleated RBC % 0 03/16/21 20:50: Triglycerides 120, Cholesterol 164, LDL Cholesterol 80, VLDL Cholesterol 24, HDL Cholesterol 60 03/17/21 03:08: WBC 6.6, RBC 4.04 L, Hgb 11.3 L, Hct 35.7 L, MCV 88.4, MCH 28.0, MCHC 31.7 L, Plt Count 224, MPV 9.3, Immature Gran % (Auto) 0.300, Neut % (Auto) 48.4, Lymph % (Auto) 40.5, Fountain % (Auto) 7.4, Eos % (Auto) 2.9, Baso % (Auto) 0.5, Absolute Neuts (auto) 3.2, Nucleated RBC % 0 03/17/21 03:08: Sodium 145, Potassium 3.3 L, Chloride 112 H, Carbon Dioxide 27.0, Anion Gap 6, BUN 12, Creatinine 0.80, Est GFR (MDRD) Af Amer 91, Est GFR (MDRD) Non-Af 75, BUN/Creatinine Ratio 15.0, Glucose 100, Calcium 8.3 L Rhythm: EKG: Normal sinus rhythm ECHO: Stress Test: Cardiac Cath: PCI: CT Surgery: Holter monitor: EPS: PPM: CXR: Chest CT Scan: Radiography Diagnostic Testing: Radiology Impression Chest X-Ray 03/16/21 16:59 IMPRESSION: No acute radiographic abnormalities. Electronically Signed: Neil Baker MD at 17:40 EDT Tel , Service support , Physical Exam Const oriented x3 and healthy appearing Orientation / Consciousness: awake HEENT normocephalic Eyes PERRL and conjunctivae normal Neck supple, no JVD and no carotid bruits Chest inspection of chest normal Resp normal respiratory effort and clear to auscultation bilaterally Cardio Palpation: normal PMI Rate: regular rate Rhythm: regular rhythm and other Other Details: No pericardial friction rub heard. Heart Sounds: S1 normal and S2 normal Peripheral Pulses: pulses 2+ throughout GI normal to inspection, nondistended, normoactive bowel sounds Extremity normal to inspection and no clubbing, cyanosis or edema Psych mental status grossly normal Assessment & Plan Assessment/Plan (1) Chest pain: QUALIFIERS: Chest pain type: unspecified Qualified Code(s): R07.9 - Chest pain, unspecified PLAN: Patient presents with chest pain which is sharp and worse on lying flat. She underwent cardiac catheterization today which demonstrated essentially normal coronary arteries and preserved left ventricular systolic function. Ech ocardiogram performed did not demonstrate any evidence of pericardial effusion. * The cardiac enzyme elevation is likely secondary to pericardial inflammation based on her history. * Would recommend starting Indocin 25 mg 3 times a day with GI protection (2) Hypertension: PLAN: She does have a history of recently diagnosed hypertension. She has been started on losartan and this will be continued in the meantime. We will increase to 100 mg once a day * * Thank you for allowing me to participate in the care of your patient. Please don't hesitate to call if any issues arise.
[2021-03-17] MEDS: Ascorbic Acid 500 MG Tablet PO (10:52)
[2021-03-17] MEDS: 0.9% Normal Saline 1,000 ML 75 ML IV (10:53)
[2021-03-17] MEDS: Citalopram 20 MG Tablet PO (10:53)
[2021-03-17] MEDS: Venlafaxine XR 37.5 MG Capsule PO (10:53)
[2021-03-17] MEDS: Meloxicam 7.5 MG Tablet PO (10:53)
[2021-03-17] MEDS: Pantoprazole Sodium 40 MG Tablet PO (10:56)
--- NOTE | 2021-03-17 11:21 | CASEMGMT ---
ERLIN FRANKEL assessment: Face to Face with patient for initial transition planning/care coordination assessment. ERLIN FRANKEL introduced self and role at [facility], pt voices understanding and consents to assessment. Pt is sitting up in bed in no distress. Pt is A/Ox4 and answers all questions appropriately. Care providers, pharmacy, and demographics verified. Presentation: Pt c/o chest pain and states also had vomiting/diarrhea for last 3 days Admitting dx: NSTEMI PCP: Cliff Specialists: KM Combs Preferred Pharmacy: [facility] Insurance: [facility] Prescription Benefit: [employer] Living Will/HPOA: Pt states has LW/HPOA and is aware that they are not on file at [facility]. Pt states her 'daughter', Gloria Quispe, is HPOA. LNOK: Gloria Quispe, HPOA Living Arrangements: Pt states lives alone in mobile home with 4 steps in and states no concerns at home. Pt states is independent with ADL's. Transportation: Pt states drives self and states no transportation concerns. DME/HHC: Pt states has the following DME: cane, walker, rails, and shower chair. Pt states no need for any further DME. Pt states has had HHC in the past but has not been to SNF. Pt states no concerns with going home at time of discharge. Pt states is retired. Pt states does not smoke cigarettes or drink ETOH. Pt states no further concerns/needs. CM to follow for any further discharge planning/needs. Advised pt to ask for CM if any further questions/concerns/needs arise, voices understanding. Pt Goal: Home Plan[place] ERLIN FRANKEL
[2021-03-17] MEDS: Indomethacin 25 MG Capsule PO (12:31)
--- NOTE | 2021-03-17 17:07 | PCM.DC ---
Discharge Instructions Diet Discharge Diet: No restrictions Activity Discharge Activity: Return to Normal Activity Weight Bearing Status: Full weight bearing Follow Up Care Test Results: Test results from this visit will be discussed in further detail at your follow-up appointment, if applicable. Discharge Plan Admission Admit Date/Time: 03/16/21 23:00 Primary Reason for Your Visit: chest pain Attending Provider: Sanjiv Hunter Primary Care Provider: Gilberto Coronado Consulting Providers: Zion Newberry Instructions Patient Instructions: ED Chest Pain, Noncardiac Discharge Orders/Prescriptions Prescriptions: New indomethacin 25 mg Capsule 25 mg PO TIDCM Qty: 42 RF: 0 omeprazole 40 mg capsule,delayed release(DR/EC) 40 mg PO DAILY Qty: 30 RF: 0 losartan [Cozaar] 100 mg tablet 100 mg PO DAILY Qty: 30 RF: 0 nystatin 100,000 unit/gram powder 1 applic topical BID Qty: 30 RF: 0 Continued atorvastatin 20 MG tablet 20 mg PO QHS RF: 0 citalopram 40 MG tablet 20 mg PO DAILY RF: 0 ascorbic acid (vitamin C) 500 MG tablet 500 mg PO DAILY@0800 RF: 0 albuterol sulfate 6.7 GM HFA aerosol inhaler 2 puff IH PRN PRN (Reason: Asthma) RF: 0 vitamin E 400 UNIT capsule 400 unit PO DAILY RF: 0 levothyroxine 112 MCG tablet 112 mcg PO DAILY RF: 0 melatonin-pyridoxine (vit B6) 1 EACH tablet 1 ea PO QHS RF: 0 fish oil-dha-epa 1 EACH capsule 1 ea PO DAILY RF: 0 cholecalciferol (vitamin D3) 2,000 UNIT capsule 6,000 unit PO DAILY RF: 0 venlafaxine 37.5 MG tablet extended release 24hr 37.5 mg PO QHS RF: 0 fluticasone furoate-vilanterol 1 EACH blister with device 1 puff IH DAILY RF: 0 mv,Ca,min-folic acid-vit K1 1 EACH tablet 1 ea PO DAILY RF: 0 calcium carbonate-vitamin D3 1 EACH tablet,chewable 2 tab PO QHS RF: 0 gabapentin 100 mg capsule 100 mg PO TID RF: 0 Discontinued meloxicam 7.5 MG tablet 7.5 mg PO DAILY RF: 0 losartan 50 mg tablet 50 mg PO DAILY RF: 0 famotidine 40 mg tablet 40 mg PO QHS RF: 0 Referrals / Follow Up: Zion Newberry MD [STAFF PHYSICIAN] - Within 1 Month Gilberto Coronado MD [Primary Care Provider] - Within 2 Weeks Disposition Disposition (needs filled in before D/C Order can be placed): Home, Self Care
--- NOTE | 2021-03-19 09:17 | PCM.DC.SUM ---
Providers Date of Admission: 03/16/21 Date of Discharge: 03/17/21 Primary Care Physician: Dr. Gilberto Coronado MD Consultations 03/16/21 20:24 Consult: Cardiology Routine Consulting Provider: Zion Newberry Reason for Consult: Elevated troponins, chest pain EMERGENT Consult: No MD Notified: Yes Date Notified: 03/16/21 Time Notified: 19:26 Method of Notification: Text Method of Consult:: In-Person Reason For Visit: NSTEMI Diagnosis Discharge Diagnosis (1) Chest pain: Status: Acute Code(s): R07.9 - Chest pain, unspecified Qualifiers: Chest pain type: unspecified Qualified Code(s): R07.9 - Chest pain, unspecified (2) Hypertension: Status: Chronic Code(s): I10 - Essential (primary) hypertension Plan: 1. Acute pericarditis #2 essential hypertension #3 spinal stenosis #4 hypothyroidism #5 degenerative disc disease lumbar spine #6 hyperlipidemia #7 mild pulmonary hypertension #8 hypokalemia Non-STEMI was ruled out Medications at Discharge Home Medications albuterol sulfate 2 puff IH PRN PRN 11/04/16 ascorbic acid (vitamin C) 500 mg PO DAILY@0800 11/04/16 atorvastatin 20 mg PO QHS 11/04/16 cholecalciferol (vitamin D3) 6,000 unit PO DAILY 11/04/16 citalopram 20 mg PO DAILY 11/04/16 fish oil-dha-epa 1 ea PO DAILY 11/04/16 fluticasone furoate-vilanterol 1 puff IH DAILY 11/04/16 levothyroxine 112 mcg PO DAILY 11/04/16 melatonin-pyridoxine (vit B6) 1 ea PO QHS 11/04/16 mv,Ca,min-folic acid-vit K1 1 ea PO DAILY 11/04/16 venlafaxine 37.5 mg PO QHS 11/04/16 vitamin E 400 unit PO DAILY 11/04/16 calcium carbonate-vitamin D3 2 tab PO QHS 11/08/16 gabapentin 100 mg PO TID 03/16/21 indomethacin 25 mg PO TIDCM #42 cap 03/17/21 losartan [Cozaar] 100 mg PO DAILY #30 tab 03/17/21 nystatin 1 applic TOPICAL BID #30 g 03/17/21 omeprazole 40 mg PO DAILY #30 cap 03/17/21 Hospital Course Operations None Procedures 2-D Echocardiogram and Cardiac catheterization Summary of Care Provided Minutes Spent on Discharge: 31 Hospital Course: 70-year-old white female was seen in the emergency room at [facility] with chief complaint of chest pain, she also complains of nausea vomiting and diarrhea for 3 days prior to being seen in the emergency room. Work-up in the emergency room included cardiac enzymes which were elevated, patient is EKG did not show any acute injury pattern, patient's chest x-ray was unremarkable. The remainder the patient's labs were also unremarkable. Patient was admitted to PCU, the initial working diagnosis was non-STEMI, she was seen in consultation by cardiology and underwent a cardiac catheterization which showed no evidence of occlusive coronary disease. Patient's echocardiogram showed a normal ejection fraction with mild pulmonary hypertension. Patient C-reactive protein was elevated. Patient was felt to have pericarditis and not felt to have had a non-STEMI. Patient's diarrhea resolved during her hospitalization. On 03/17/2021, patient was seen and examined: On examination she appeared in good health and spirits, she does not appear to be in any distress. Vital signs as documented. Skin warm and dry and without overt rashes. Neck without JVD, thyroid appears normal, trachea is midline, neck is supple. Lungs clear, normal air movement was noted. Heart exam notable for regular rhythm, normal sounds and absence of murmurs, rubs or gallops. Abdomen unremarkable and without evidence of organomegaly, masses, or abdominal aortic enlargement, bowel sounds are present in all 4 quadrants, no abdominal tenderness was noted. Extremities nonedematous, no cyanosis was noted, no clubbing was noted. Neuro: Cranial nerves II through XII are grossly intact, no focal motor deficits were noted, sensation to light touch and pinprick is intact, motor exam 5/5 throughout. Psych: Patient is alert and oriented x3, she does not appear anxious or depressed, she does not appear agitated. Patient was discharged home in stable condition on 03/17/2021. Weight / BMI Weight Weight: 71.305 kg Body Mass Index (BMI) 35.2 ABG / Lab / Microbiology Data Result Diagrams: 03/17/21 03:08 03/17/21 03:08 Microbiology: Microbiology 03/16/21 19:50 Mucosa - Nose SARS-CoV-2 Antigen (Rapid) - Final D/C Instructions Discharge Diet: No restrictions Weight Bearing Status: Full weight bearing Meaningful Use Info Meaningful Use Diagnoses (Choose all that apply): None applicable Discharge Plan Admission Admit Date/Time: 03/16/21 23:00 Primary Reason for Your Visit: chest pain Attending Provider: Sanjiv Hunter Primary Care Provider: Gilberto Coronado Consulting Providers: Zion Newberry Instructions Patient Instructions: ED Chest Pain, Noncardiac Discharge Orders/Prescriptions Prescriptions: New indomethacin 25 mg Capsule 25 mg PO TIDCM Qty: 42 RF: 0 omeprazole 40 mg capsule,delayed release(DR/EC) 40 mg PO DAILY Qty: 30 RF: 0 losartan [Cozaar] 100 mg tablet 100 mg PO DAILY Qty: 30 RF: 0 nystatin 100,000 unit/gram powder 1 applic topical BID Qty: 30 RF: 0 Continued atorvastatin 20 MG tablet 20 mg PO QHS RF: 0 citalopram 40 MG tablet 20 mg PO DAILY RF: 0 ascorbic acid (vitamin C) 500 MG tablet 500 mg PO DAILY@0800 RF: 0 albuterol sulfate 6.7 GM HFA aerosol inhaler 2 puff IH PRN PRN (Reason: Asthma) RF: 0 vitamin E 400 UNIT capsule 400 unit PO DAILY RF: 0 levothyroxine 112 MCG tablet 112 mcg PO DAILY RF: 0 melatonin-pyridoxine (vit B6) 1 EACH tablet 1 ea PO QHS RF: 0 fish oil-dha-epa 1 EACH capsule 1 ea PO DAILY RF: 0 cholecalciferol (vitamin D3) 2,000 UNIT capsule 6,000 unit PO DAILY RF: 0 venlafaxine 37.5 MG tablet extended release 24hr 37.5 mg PO QHS RF: 0 fluticasone furoate-vilanterol 1 EACH blister with device 1 puff IH DAILY RF: 0 mv,Ca,min-folic acid-vit K1 1 EACH tablet 1 ea PO DAILY RF: 0 calcium carbonate-vitamin D3 1 EACH tablet,chewable 2 tab PO QHS RF: 0 gabapentin 100 mg capsule 100 mg PO TID RF: 0 Discontinued meloxicam 7.5 MG tablet 7.5 mg PO DAILY RF: 0 losartan 50 mg tablet 50 mg PO DAILY RF: 0 famotidine 40 mg tablet 40 mg PO QHS RF: 0 Referrals / Follow Up: Zion Newberry MD [STAFF PHYSICIAN] - Within 1 Month Gilberto Coronado MD [Primary Care Provider] - Within 2 Weeks Disposition Disposition (needs filled in before D/C Order can be placed): Home, Self Care Charges/Coding Visit Charges Inpatient E&M: 04747 Disch Hosp
== END 2021-03-17 18:10 | disposition home or self-care (01) | DRG 287 ==
LOC: ED 17:22 → PCU 19:15
PROVIDERS: Nurse Practitioner Family; Admitting Provider Family Medicine; Emergency Provider Emergency Medicine; PCP Family Medicine; Visit Provider Internal Medicine
DX: I30.9 Acute pericarditis, unspecified (principal); I22.0 Subsequent ST elevation (STEMI) myocardial infarction of anterior wall; I16.1 Hypertensive emergency; E87.6 Hypokalemia; A04.8 Other specified bacterial intestinal infections; Z20.822 Contact with and (suspected) exposure to COVID-19; I10 Essential (primary) hypertension; E89.0 Postprocedural hypothyroidism; E78.5 Hyperlipidemia, unspecified; M51.36 Other intervertebral disc degeneration, lumbar region; M48.061 Spinal stenosis, lumbar region without neurogenic claudication; G89.29 Other chronic pain; J45.909 Unspecified asthma, uncomplicated; M19.90 Unspecified osteoarthritis, unspecified site; K21.9 Gastro-esophageal reflux disease without esophagitis; M81.0 Age-related osteoporosis without current pathological fracture; F51.04 Psychophysiologic insomnia; F32.9 Major depressive disorder, single episode, unspecified; F41.9 Anxiety disorder, unspecified; Z79.1 Long term (current) use of non-steroidal anti-inflammatories (NSAID); Z79.899 Other long term (current) drug therapy
CPT/HCPCS: 36415; 71045; 80048; 80053; 80061; 83735; 84484; 85025; 85652; 86141; 87426; 93005; 93306; 93458; 94640; 96361; 96365; 96372; 96375; 99152; 99153; 99218; 99285; J7030; Q9967; C1769; C1894; G0378; J2405

== ENCOUNTER 2021-10-22 12:00 | Outpatient (RCR) | payer MEDICARE, SELFPAY ==
--- NOTE | 2021-09-18 09:50 | HP.PTEVAL ---
Patient's Visit Information EVELIN SANDHU is a 71 year old F referred to Physical Therapy by Dr. Robb Combs MD with a diagnosis of Decreased balance. Date of Evaluation: 09/17/21 Physical Therapist: Carter Garcia, PT, ATC - Visit Plan Frequency: 2x /Week Duration: 6 Weeks Plan: B LE strengthening, balance and proprio, core stab ex's, gait training, nustep, and HEP - Subjective Pt reports she has a long Hx of falls. Pt notes she has fallen outside of her house, as well as inside of her house. Pt reports I simply just lost my balance. Pt reports she finally went to her Dr. after falling twice in one week. Pt reports she was to come in here earlier, but just recovered from a bad case of the flu. Pt reports she has good sensation in her feet, and she denies any dizziness or light headed ness at this time. Pt reports she has injured herself seriously one time after a fall. Pt notes she has stairs in her home and notes she has to negotiate them often which is very difficult for her. Pt reports she has felt weak in her LE's since being ill. Pt reports her R knee is a little sore today secondary to having a R TKA previously. - Objective Neuro: B L5 dermatones are numb to light touch. All other B LE sensation is WNL to light touch. B patellar reflex= 3+/3. ROM: B LE's are WFL at this time bilaterally. MMT: B knee flex= 3/5. All other B LE MMT 4-/5 throughout. Gait: Pt was able to ambulate 340 feet until feeling fatigued and needing to rest. FGA= 14/30 - Balance/Special Test Scores Functional Gait Assessment Score: 14 % Disability: 53.3400 Lower Extremity Functional Score: 32 - Goals Goal 1:: Increase B LE strength x 1 grade to aid with stair negotiation Goal Time Frame: 4-6 Weeks Goal 2:: Improve the FGA x 5-10 points to aid with preventing future falls Goal Time Frame: 4-6 Weeks Goal 3:: I with HEP Goal Time Frame: 4-6 Weeks - Rehabilitation Potential Physical Therapy Diagnosis: Pt has LE weakness, decreased balance, and intolerance for ambulation secondary to debilitation Rehabilitation Potential: Good - Anticipated Interventions Patient/Client Instruction: Educate patient on: Condition, Plan of Care For the Purpose of:: To improve self management Therapeutic Exercise to Include: Strength training, Endurance training, Balance training, Gait and locomotor training, Active ROM For the Purpose of:: To decrease pain, To increase ROM, To improve muscle performance and motor function Thank you for the opportunity to evaluate your patient. For Medicare and Medicare HMO plans, please review the plan of care and approve it. It will need to be FAXED BACK to us at [phone] for Medicare purposes. For Medicare only, by signing this I certify the plan of care. Please let me know if there are questions or concerns regarding this plan of care. Physician Signature: Date:
--- NOTE | 2022-02-18 15:52 | HP.PT.NRP ---
EVELIN A PHOEBE was seen in my office for initial evaluation on 09/17/21. The following Plan of Care was established for this patient: Initial Frequency: 2x /Week Initial Duration: 6 Weeks Patient/Client Instruction: Educate patient on: Condition, Plan of Care For the Purpose of:: To improve self management Therapeutic Exercise to Include: Strength training, Endurance training, Balance training, Gait and locomotor training, Active ROM For the Purpose of:: To decrease pain, To increase ROM, To improve muscle performance and motor function This patient was last seen in our office . Pertinent comments regarding their Physical therapy will appear below: Pt was treated for 7 PT visits for unsteady gait through the date of 10/22/21. Pt has not returned through todays date and is discontinued at this time At this point I will be discontinuing this patient from physical therapy. I would be happy to see this patient again in the future if found appropriate by the physician. Thank you! Carter Garcia, PT, ATC Balance/Gait/Functional tests - Balance/Special Test Scores Functional Gait Assessment Score: 14 % Disability: 53.3400 Lower Extremity Functional Score: 32
== END 2021-10-22 19:00 | disposition home or self-care (01) ==
LOC: PT 12:00
PROVIDERS: PCP Family Medicine; Referring Provider Anesthesiology Pain Medicine; Visit Provider Anesthesiology Pain Medicine
DX: R26.89 Other abnormalities of gait and mobility (principal)
CPT/HCPCS: 97110; 97161

== ENCOUNTER 2021-11-11 10:18 | Outpatient (CLI) | payer MEDICARE, SELFPAY ==
[2021-11-11 12:35] LABS: Anion Gap 4 (5-15); BUN 19 mg/dL (7-18); BUN/Creat Ratio 18.3 RATIO (10-20); Calcium,Total 9.6 mg/dL (8.5-10.1); Chloride 107 mmol/L (98-107); Cholesterol 157 mg/dL (200); Creatinine, Serum 1.04 mg/dL (0.55-1.02); EST Glomerular Filtration Rate 55 mL/min (>60); Est Glom Filt Rate - Afr Amer 67 mL/min (>60); Glucose 99 mg/dL (74-106); High Density Lipoprotein 54 mg/dL; Potassium 3.9 mmol/L (3.5-5.1); Sodium Level 140 mmol/L (136-145); Thyroid Stim Hormone (TSH) 0.83 uIU/mL (0.358-3.74); Triglycerides 148 mg/dL; Very Low Density Lipoprotein 30 mg/dL (5-40)
== END 2021-11-11 23:59 | disposition home or self-care (01) ==
LOC: MTLAB 10:20
PROVIDERS: PCP Family Medicine; Referring Provider Family Medicine; Visit Provider Family Medicine
DX: E11.9 Type 2 diabetes mellitus without complications (principal)
CPT/HCPCS: 36415; 80048; 80061; 84443

== ENCOUNTER 2021-11-16 14:40 | Outpatient (CLI) | payer MEDICARE, SELFPAY ==
--- NOTE | 2021-11-16 14:42 | RAD_ITS ---
INDICATION: PAIN EXAMINATION/TECHNIQUE: X-RAY - LEFT XR Shoulder Min 2 Views 4 VIEWS COMPARISON: None. FINDINGS/ RAD/Shoulder min 2 Views IMPRESSION: No acute fracture or dislocation. High riding humeral head which can be seen with chronic rotator cuff injury. Moderate glenohumeral joint and acromioclavicular joint degenerative changes. He''s osteopenia. Soft tissues are unremarkable. The visualized lung is unremarkable. Electronically Signed: Abundio Pimentel, at 16:25 EDT ,
== END 2021-11-16 23:59 | disposition home or self-care (01) ==
LOC: MTRAD 14:41
PROVIDERS: PCP Family Medicine; Referring Provider Family Medicine; Visit Provider Family Medicine
DX: M19.012 Primary osteoarthritis, left shoulder (principal)
CPT/HCPCS: 73030

== ENCOUNTER → 2022-01-28 | Outpatient (CLI) | payer MEDICARE, SELFPAY ==
--- NOTE | 2022-01-28 14:31 | BI_ITS ---
MAMMOGRAPHY - BILATERAL SCREENING REASON FOR EXAM: Female, 71 years old. Routine annual screening examination. PERTINENT HISTORY: Mother with breast cancer. Grandmother with breast cancer. Aunt with breast cancer. TECHNIQUE: Digital bilateral breast mylene (3D mammographic acquisition) in the CC and MLO projections. 2-D mediolateral oblique (MLO) and craniocaudad (CC) views of both breasts were obtained. CAD: Full Field Digital Mammography with Computer Added Detection was performed. COMPARISON: Screening mammogram from 01/26/2021, 01/24/2020, 01/05/2019, 12/29/2017. FINDINGS: Breast Composition: There are scattered areas of fibroglandular density. There are no dominant masses or suspicious calcifications. Scattered benign-appearing calcifications. Stable small benign-appearing bilateral lymph nodes. No other significant abnormalities are identified. There has been no significant change since the prior study. BI/SCRN MAMM (CAD)W/MYLENE BILAT IMPRESSION: Stable bilateral screening mammogram. Yearly follow-up mammogram recommended. (A) ASSESSMENT CATEGORY: BIRADS Category 2: Benign. A letter regarding these results will be sent to the patient by the facility within 30 days. Approximately 10% of breast cancers are not detected by mammography. A normal mammogram should not delay biopsy of a clinically suspicious abnormality. [id number] Electronically Signed: Abundio Pimentel, at 9:13 EDT ,
--- NOTE | 2022-01-28 14:36 | BD_ITS ---
STUDY: DUAL ENERGY X-RAY ABSORPTIOMETRY / DXA REASON FOR EXAM: Female, 71 years old. [id number]. Patient is postmenopausal. TECHNIQUE: Bone Mineral Density (BMD) measurements of lumbar spine and bilateral hips were obtained. COMPARISON: Comparison is made with prior study dated 01/24/2020. FINDINGS: Lumbar Spine (L1-L4): g/cm2 (0.937) / T-score (-0.7) / Z-score (1.5) Findings are suggestive of normal bone density with a low fracture risk. Left Femur Total: g/cm2 (0.829) / T-score (-0.9) / Z-score (0.7) Left Femoral Neck: g/cm2 (0.634) / T-score (-1.9) / Z-score (0.0) Right Femur Total: g/cm2 (0.846) / T-score (-0.8) / Z-score (0.8) Right Femoral Neck: g/cm2 (0.670) / T-score (-1.5) / Z-score (0.4) The T-Scores on the most recent prior examination were: Lumbar Spine (L1-L4): There has been worsening of bone density since the previous examination. Left Femur Total: which represents a worsening of 1.9%. Right Femur Total: which represents a worsening of 0.1%. BD/Dexa Bone Density Study IMPRESSION: The patient is considered osteopenic as outlined below according to World Roel Organization (WHO) criteria with a moderate fracture risk. There has been worsening of bone density since the previous examination. Reference Information: The T-score is the number of standard deviations above or below the standard which is normal for young adults at their peak bone mineral density. The World Health Organization (WHO) interprets the T-scores as follows: Above -1 Normal bone density Between -1 and -2.5 Osteopenia Equal to / or below -2.5 Osteoporosis As a practical clinical guideline, osteopenia may be graded as follows: Mild -1 through -1.5 Moderate -1.6 through -2.0 Severe -2.1 through -2.4 The Z-score is the number of standard deviations above or below age-matched controls. A Z-score of less than -1.5 would be considered abnormal. References: 1. NIH Osteoporosis and Related Bone Diseases www osteo.org 2. International Society for Clinical Densitometry www iscd.org 3. National Osteoporosis Foundation www nof.org Electronically Signed: Asa Damon MD at 15:46 EDT ,
== END | disposition home or self-care (01) ==
LOC: OPBD 14:29
PROVIDERS: PCP Family Medicine; Visit Provider Family Medicine
DX: Z13.820 Encounter for screening for osteoporosis (principal); Z78.0 Asymptomatic menopausal state; Z12.31 Encounter for screening mammogram for malignant neoplasm of breast; Z80.3 Family history of malignant neoplasm of breast
CPT/HCPCS: 77063; 77067; 77080

== ENCOUNTER → 2022-06-15 | Outpatient (CLI) | payer MEDICARE, SELFPAY ==
[2022-06-15 18:05] LABS: Magnesium 2.1 mg/dL (1.6-2.6)
[2022-06-15 18:22] LABS: Vitamin D,25 Hydroxy 76.4 ng/mL
== END | disposition home or self-care (01) ==
LOC: MTLAB 15:35
PROVIDERS: PCP Family Medicine; Referring Provider Family Medicine; Visit Provider Family Medicine
DX: M85.80 Other specified disorders of bone density and structure, unspecified site (principal)
CPT/HCPCS: 36415; 82306; 82330; 83735

== ENCOUNTER → 2023-02-07 | Outpatient (CLI) | payer MEDICARE, SELFPAY ==
--- NOTE | 2023-02-07 15:45 | RAD_ITS ---
HISTORY: RIGHT ARM PAIN. TECHNIQUE: XR Humerus Min 2 Views. COMPARISON: None. FINDINGS: BONES : No acute fracture identified. Mild osteopenia. JOINTS: No dislocation. Degenerative change of the shoulder with high riding humeral head from chronic rotator cuff disease. RAD/Humerus min 2 Views IMPRESSION: No acute fracture or dislocation identified in the right humerus. Electronically Signed: Mackenzie Tellez MD at 15:58 EDT ,
== END | disposition home or self-care (01) ==
LOC: MTRAD 15:44
PROVIDERS: PCP Family Medicine; Referring Provider Family Medicine; Visit Provider Family Medicine
DX: M79.601 Pain in right arm (principal)
CPT/HCPCS: 73060

== ENCOUNTER → 2023-02-17 | Outpatient (CLI) | payer MEDICARE, SELFPAY ==
--- NOTE | 2023-02-17 14:03 | RAD_ITS ---
INDICATION: Fall EXAMINATION/TECHNIQUE: X-RAY - RIGHT XR Shoulder Min 2 Views 4 VIEWS COMPARISON: 02/07/2023 FINDINGS: SOFT TISSUES: No soft tissue swelling or gas. No radiopaque foreign body. BONES/JOINTS: No acute fracture or subluxation. Common clavicular and coracoclavicular relationships are maintained. Acromiohumeral interval narrowing redemonstrated. RAD/Shoulder min 2 Views IMPRESSION: No acute abnormal finding. Electronically Signed: Steffen Yen MD at 21:26 EDT ,
[2023-02-17 15:51] LABS: Vitamin D,25 Hydroxy 85.6 ng/mL
[2023-02-17 15:59] LABS: ALB/GLOB Ratio 0.9 RATIO (0.9-2.4); AST(SGOT) 26 U/L (15-37); Alanine Aminotransfer ALT/SGPT 27 U/L (13-56); Albumin, Serum 3.5 g/dL (3.2-5.0); Alkaline Phosphatase 64 U/L (45-117); Anion Gap 5 (5-15); BUN 18 mg/dL (7-18); Calcium,Total 9.6 mg/dL (8.5-10.1); Chloride 108 mmol/L (98-107); Cholesterol 182 mg/dL (200); EST Glomerular Filtration Rate 58 mL/min (>60); Est Glom Filt Rate - Afr Amer 70 mL/min (>60); Globulin 3.8 g/dL (2.2-4.2); Glucose 87 mg/dL (74-106); High Density Lipoprotein 61 mg/dL; Protein, Total 7.3 g/dL (6.4-8.2); Sodium Level 138 mmol/L (136-145); Triglycerides 185 mg/dL; Very Low Density Lipoprotein 37 mg/dL (5-40)
== END | disposition home or self-care (01) ==
LOC: MTLAB 14:03
PROVIDERS: PCP Family Medicine; Referring Provider Family Medicine; Visit Provider Family Medicine
DX: E11.22 Type 2 diabetes mellitus with diabetic chronic kidney disease (principal); N18.9 Chronic kidney disease, unspecified; E55.9 Vitamin D deficiency, unspecified; M25.511 Pain in right shoulder
CPT/HCPCS: 36415; 73030; 80053; 80061; 82306; 84443

== ENCOUNTER → 2023-02-25 | Outpatient (CLI) | payer MEDICARE, SELFPAY ==
--- NOTE | 2023-02-25 14:37 | BI_ITS ---
MAMMOGRAPHY - BILATERAL SCREENING REASON FOR EXAM: Female, 72 years old. Routine annual screening examination. PERTINENT HISTORY: Mother with breast cancer. Grandmother with breast cancer. Aunt with breast cancer. TECHNIQUE: Digital bilateral breast mylene (3D mammographic acquisition) in the CC and MLO projections. 2-D mediolateral oblique (MLO) and craniocaudad (CC) views of both breasts were obtained. CAD: Full Field Digital Mammography with Computer Added Detection was performed. COMPARISON: Comparison is made with prior study January 28, 2022 and January 26, 2021. FINDINGS: Breast Composition: There are scattered areas of fibroglandular density. There are no dominant masses or suspicious calcifications. Stable small benign-appearing bilateral axillary lymph nodes. No other significant abnormalities are identified. There has been no significant change since the prior study. BI/SCRN MAMM (CAD)W/MYLENE BILAT IMPRESSION: Stable bilateral screening mammogram. Yearly follow-up mammogram recommended. (A) ASSESSMENT CATEGORY: BIRADS Category 2: Benign. A letter regarding these results will be sent to the patient by the facility within 30 days. Approximately 10% of breast cancers are not detected by mammography. A normal mammogram should not delay biopsy of a clinically suspicious abnormality. [id number] Electronically Signed: Asa Damon MD at 10:06 EDT ,
== END | disposition home or self-care (01) ==
LOC: OPBI 14:36
PROVIDERS: PCP Family Medicine; Referring Provider Family Medicine; Visit Provider Family Medicine
DX: Z12.31 Encounter for screening mammogram for malignant neoplasm of breast (principal); Z80.3 Family history of malignant neoplasm of breast
CPT/HCPCS: 77063; 77067

== ENCOUNTER → 2023-09-29 | Outpatient (CLI) | payer MEDICARE, SELFPAY ==
[2023-09-29 16:25] LABS: Vitamin D,25 Hydroxy 74.1 ng/mL
[2023-09-29 16:26] LABS: Anion Gap 6 (5-15); BUN 25 mg/dL (7-18); Calcium,Total 9.8 mg/dL (8.5-10.1); Chloride 105 mmol/L (98-107); Creatinine, Serum 1.04 mg/dL (0.55-1.02); EST Glomerular Filtration Rate 55 mL/min (>60); Est Glom Filt Rate - Afr Amer 67 mL/min (>60); Glucose 89 mg/dL (74-106); Potassium 3.9 mmol/L (3.5-5.1); Sodium Level 137 mmol/L (136-145); Thyroid Stim Hormone (TSH) 0.35 uIU/mL (0.358-3.74)
== END | disposition home or self-care (01) ==
LOC: MFPLAB 12:10
PROVIDERS: PCP Family Medicine; Visit Provider Family Medicine
DX: N18.30 Chronic kidney disease, stage 3 unspecified (principal); E03.2 Hypothyroidism due to medicaments and other exogenous substances
CPT/HCPCS: 36415; 80048; 82306; 84443

== ENCOUNTER → 2024-05-10 | Outpatient (CLI) | payer MEDICARE, SELFPAY ==
--- NOTE | 2024-05-10 13:14 | BI_ITS ---
MAMMOGRAPHY - BILATERAL SCREENING REASON FOR EXAM: Female, 73 years old. Routine annual screening examination. PERTINENT HISTORY: Mother with breast cancer. Grandmother with breast cancer. Aunt with breast cancer. TECHNIQUE: Digital bilateral breast mylene (3D mammographic acquisition) in the CC and MLO projections. 2-D mediolateral oblique (MLO) and craniocaudad (CC) views of both breasts were obtained. CAD: Full Field Digital Mammography with Computer Added Detection was performed. COMPARISON: Comparison is made with prior study dated February 25, 2023 and January 28, 2022. FINDINGS: Breast Composition: There are scattered areas of fibroglandular density. There are no dominant masses or suspicious calcifications. No other significant abnormalities are identified. There has been no significant change since the prior study. BI/SCRN MAMM (CAD)W/MYLENE BILAT IMPRESSION: Stable bilateral screening mammogram. Yearly follow-up mammogram recommended. (A) ASSESSMENT CATEGORY: BIRADS Category 1: Negative. A letter regarding these results will be sent to the patient by the facility within 30 days. Approximately 10% of breast cancers are not detected by mammography. A normal mammogram should not delay biopsy of a clinically suspicious abnormality. [id number] Electronically Signed: Asa Damon MD at 14:58 EDT ,
[2024-05-10 17:36] LABS: Hematocrit 39.9 % (37-47); Hemoglobin 12.3 g/dL (12.0-15.0); Mean Corp Hgb Conc 30.8 g/dL (32-36); Mean Corpuscular Hgb 27.2 pg (27.0-32.0); Mean Corpuscular Volume 88.1 fL (81-99); Mean Platelet Vol. 9.7 fl (6.2-12.0); Platelet Count 263 K/mm3 (150-450); RBC Distribution Width CV 12.9 % (11.6-14.6); RBC Distribution Width SD 41.8 fl (35.1-43.9); Red Blood Count 4.53 M/mm3 (4.2-5.4); White Blood Count 7.8 K/mm3 (4.4-11.0)
[2024-05-10 18:31] LABS: PTHIN 52.1 pg/mL (18.4-80.1)
[2024-05-10 18:36] LABS: Vitamin D,25 Hydroxy 43.2 ng/mL
[2024-05-10 18:58] LABS: ALB/GLOB Ratio 1.1 RATIO (0.9-2.4); AST(SGOT) 6 U/L (15-37); Alanine Aminotransfer ALT/SGPT 15 U/L (13-56); Albumin, Serum 3.6 g/dL (3.2-5.0); Alkaline Phosphatase 69 U/L (45-117); Anion Gap 7 (5-15); BUN 12 mg/dL (7-18); BUN/Creat Ratio 11.7 RATIO (10-20); Calcium,Total 9.6 mg/dL (8.5-10.1); Chloride 108 mmol/L (98-107); Creatinine, Serum 1.03 mg/dL (0.55-1.02); EST Glomerular Filtration Rate 56 mL/min (>60); Est Glom Filt Rate - Afr Amer 67 mL/min (>60); Globulin 3.4 g/dL (2.2-4.2); Glucose 77 mg/dL (74-106); Iron 61 ug/dL (50-170); Potassium 3.8 mmol/L (3.5-5.1); Sodium Level 139 mmol/L (136-145); T4 Free Direct 1.12 ng/dL (0.76-1.46); Thyroid Stim Hormone (TSH) 0.845 uIU/mL (0.358-3.740)
== END | disposition home or self-care (01) ==
PROVIDERS: PCP Family Medicine; Referring Provider Family Medicine; Visit Provider Family Medicine
DX: Z12.31 Encounter for screening mammogram for malignant neoplasm of breast (principal); E11.22 Type 2 diabetes mellitus with diabetic chronic kidney disease; N18.30 Chronic kidney disease, stage 3 unspecified; E03.2 Hypothyroidism due to medicaments and other exogenous substances; E55.9 Vitamin D deficiency, unspecified
CPT/HCPCS: 36415; 77063; 77067; 80053; 82306; 83540; 83970; 84439; 84443; 85027

== ENCOUNTER → 2024-10-17 | Outpatient (CLI) | payer MEDICARE, SELFPAY ==
--- NOTE | 2024-10-17 06:49 | MRI_ITS ---
PROCEDURE: MRI SPINE LUMBAR (ROUTINE) REASON FOR EXAM: Radiculopathy. TECHNIQUE: Lumbar spine MRI without intravenous gadolinium-based contrast. COMPARISON: Lumbar spine series of 12/13/2018. FINDINGS: Vertebrae: Lumbar vertebral body heights are preserved. Alignment: Mild anterolisthesis of L4 upon L5 noted.. No spondylolisthesis. Conus Medullaris: Tip at the superior L2 level. On sagittal images, at least moderate degenerative changes are again seen throughout the lumbar spine, with prominent disc narrowing seen from L2 through S1, greatest at L5-S1. On sagittal imaging, a slight disc bulge is seen at T11-T12. No spinal canal stenosis or neural foraminal narrowing is noted. T12-L1: A slight disc bulge is noted. No spinal canal stenosis or neural foraminal narrowing is seen. L1-2: A very mild disc bulge is noted. No significant spinal canal stenosis or neural foraminal narrowing is evident. L2-3: Mild posterior facet and ligamentum flavum hypertrophy is seen, josw-vugiwsn-kjoi-right. A mild disc bulge is seen, with superimposed right lateral moderate disc protrusion. Mild spinal canal stenosis is seen. No definite neural foraminal narrowing noted. L3-4: Idku-as-vmabzeqo posterior facet and ligamentum flavum hypertrophy is noted. Oaaq-eo-wzetzdsq broad-based disc protrusion seen. A moderate to moderately severe degree of spinal canal narrowing is present. No definite neural foraminal narrowing noted. L4-5: Moderately severe posterior facet and ligamentum flavum hypertrophy is seen. A mild disc bulge is seen. Moderately severe spinal canal narrowing is seen. At least mild bilateral neural foraminal narrowing is also noted. L5-S1: Mild left and zuxu-ed-ufllmvwp right posterior facet hypertrophy is seen. A uhln-xu-wgudcjib diffuse disc bulge is seen. Mild spinal canal narrowing is noted. In the presence of vertebral body osteophytosis as well, moderate to moderately severe right and moderate left neural foraminal narrowing also noted. Sacrum: Visualized upper sacrum is unremarkable. Mild sacroiliac joint degenerative changes are noted bilaterally, in visualized areas. MRI/Spine Lumbar (Routine) IMPRESSION: Prominent multilevel lumbar degenerative disc disease, as described, with multi ple levels of spinal canal stenosis and neural foraminal narrowing, with moderately severe spinal canal stenosis seen at the L 4-L5 level. Reading Location: [id number]
== END | disposition home or self-care (01) ==
LOC: MRI 06:36
PROVIDERS: PCP Family Medicine; Referring Provider Anesthesiology Pain Medicine; Visit Provider Anesthesiology Pain Medicine
DX: M54.16 Radiculopathy, lumbar region (principal)
CPT/HCPCS: 72148

== ENCOUNTER → 2025-01-16 | Outpatient (CLI) | payer MEDICARE, SELFPAY ==
[2025-01-16 15:30] LABS: Absolute Lymphocyte Count 2.23 X10^3/uL (0.83-4.51); Absolute Neutrophil Count 4.9 X10^3/uL (2.0-7.7); Basophil# 0.04 X10^3/uL; Basophil% 0.5 % (0-1); Eosinophil# 0.21 X10^3/uL; Eosinophils% 2.7 % (0-5); Hematocrit 41.1 % (37-47); Hemoglobin 13.1 g/dL (12.0-15.0); Lymphocyte # 2.23 X10^3/ul (0.83-4.51); Lymphocyte % 28.4 % (19-41); Mean Corp Hgb Conc 31.9 g/dL (32-36); Mean Corpuscular Hgb 27.3 pg (27.0-32.0); Mean Corpuscular Volume 85.8 fL (81-99); Mean Platelet Vol. 9.3 fl (6.2-12.0); Monocyte# 0.44 X10^3/uL; Monocyte% 5.6 % (0-10); NRBC Flagged by Analyzer 0 % (0-5); Neutrophil % 62.5 % (47-70); Platelet Count 284 K/mm3 (150-450); RBC Distribution Width CV 13.6 % (11.6-14.6); Red Blood Count 4.79 M/mm3 (4.2-5.4); White Blood Count 7.8 K/mm3 (4.4-11.0)
[2025-01-16 15:46] LABS: Prothrombin Time (Protime)PT. 13.7 SECONDS (11.7-14.9)
[2025-01-16 15:47] LABS: Partial Thromboplast Time 27.8 Seconds (24.1-36.2)
[2025-01-16 18:33] LABS: Anion Gap 13 (5-15); BUN 14 mg/dL (4-19); Calcium,Total 9.5 mg/dL (7.6-11.0); Chloride 102 mmol/L (98-108); Creatinine, Serum 0.92 mg/dL (0.70-1.20); EST Glomerular Filtration Rate 65 (>60); Glucose 107 mg/dL (70-99); Sodium Level 137 mmol/L (133-145); Thyroid Stim Hormone (TSH) 0.576 uIU/mL (0.300-4.200)
[2025-01-16 18:35] LABS: Magnesium 2.3 mg/dL (1.5-2.2)
[2025-01-16 18:36] LABS: Hepatitis B Surface Antibody Nonreactive
[2025-01-16 19:11] LABS: Hemoglobin A1c 5.8 % (<=5.6)
[2025-01-16 19:34] LABS: HIV Nonreactive (Nonreactive); Hepatitis C Antibody Nonreactive (Nonreactive)
[2025-01-18 05:07] LABS: Hepatitis A AB, Total Negative (Negative)
== END | disposition home or self-care (01) ==
LOC: MTLAB 13:04
PROVIDERS: Anesthesiology; Orthopaedic Surgery Orthopaedic Surgery of the Spine; PCP Family Medicine; Referring Provider Family Medicine; Visit Provider Family Medicine
DX: Z01.818 Encounter for other preprocedural examination (principal); N18.30 Chronic kidney disease, stage 3 unspecified; E03.2 Hypothyroidism due to medicaments and other exogenous substances
CPT/HCPCS: 36415; 80048; 83036; 83735; 84443; 85025; 85610; 85730; 86703; 86706; 86708; 86803; 86850; 86900; 86901; 87077; 87081

== ENCOUNTER 2025-01-23 15:36 | Inpatient (IN) | payer MEDICARE, SELFPAY ==
--- NOTE | 2025-01-22 11:05 | PAT.ANE_ITS ---
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 When Was Last Pacemaker Check QUESTION #4 FULL TEXT: You/Your Family Experience fever (hyperthermia) with Anesthesia Last Oral Intake Last Oral intake: Last Oral Intake NPO since Meds taken in AM with sips of water? Meds patient instructed to take am of surgery PONV PONV - gear finisher: PONV - gear finisher Female Yes 01/22/25 10:33 HX of Motion Sickness Yes 01/22/25 10:33 HX of N/V After Surgery No 01/22/25 10:33 Non-Smoker Yes 01/22/25 10:33 Duration of Surgery greater No 01/22/25 10:33 than 60 minutes Number of Risk Factors 3 01/22/25 10:33 PONV Score Moderate Risk 01/22/25 10:33 Height & Weight Height & Weight: Anesthesia: Height & Weight Height 4 ft 8 in 11/29/24 13:54 Respiratory Assessment Respiratory Assessment - gear finisher: Respiratory Tract Infection Hx - gear finisher Hx Respiratory Tract Infection No 01/22/25 10:33 STOP Sleep Apnea STOP Sleep Apnea - gear finisher: STOP Sleep Apnea - gear finisher Hx Hypertension Yes: CONTROLLED ON MED 01/22/25 10:33 Hx Sleep Apnea No 01/22/25 10:33 CPAP BIPAP Do you snore loudly (louder No 01/22/25 10:33 than talking or can be heard Do you often feel tired/ No 01/22/25 10:33 fatigued/ sleepy during daytime? Has anyone observed you stop No 01/22/25 10:33 breathing during sleep? STOP Results Negative 01/22/25 10:33 QUESTION #5 FULL TEXT : Do you snore loudly (louder than talking or can be heard through closed doors)? 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 Specify any problems Hx of Preganancy in last 3 No 01/22/25 10:33 Months Nurse Filling Out Transfusion VCHRISTIN 01/22/25 10:33 & Questions: Date: 01/22/25 01/22/25 10:33 Time: 10:37 01/22/25 10:33 Patient unable to answer at this time (ie. confused, unrespo /Reproduction History /Reproductive History - gear finisher: /Reproductive Hx- gear finisher Hx Now Gestational Age (in weeks): EDC: Hx Hx Para Hx Section SAB Active Medications Active Medications: Current Medications Generic Name Dose Route Start Last Admin Trade Name Freq PRN Reason Stop Dose Admin Acetaminophen 1,000 mg 01/23/25 11:15 Acetaminophen 500 Mg Tablet PO 01/23/25 11:16 PREOP ONE Cefazolin Sodium 2 gm/ Sodium 110 mls @ 150 mls/hr 01/23/25 11:15 Chloride IV 01/23/25 11:58 INTRAOP ONE Tranexamic Acid 1,000 mg/ 110 mls @ 440 mls/hr 01/23/25 11:15 Sodium Chloride IV 01/23/25 11:29 INTRAOP ONE Tranexamic Acid 1,000 mg/ 110 mls @ 440 mls/hr 01/23/25 11:15 Sodium Chloride IV 01/23/25 11:29 INTRAOP ONE Insulin Human Lispro 1 - 6 unit 01/23/25 11:15 Insulin Lispro 100 Unit/Ml Insuln.Pen SC 01/23/25 18:00 Q4H PRN PRN BG>/= 180, SEE PROTOCOL Protocol PFSH Medical History (Updated 01/22/25 @ 10:33 by Yulia Winslow) Wears dentures Wears glasses Post-menopausal Anxiety Thyroid disease Walker as ambulation aid Ambulates with cane Arthritis Kidney stone Back pain Injury of back Vertigo Gastric reflux History of pain when walking History of echocardiogram Cardiology follow-up encounter History of ganglion cyst Obesity Hyperlipidemia Patent foramen ovale Essential hypertension History of non-ST elevation myocardial infarction (NSTEMI) (03/16/21) Osteoarthritis Osteoporosis Non-smoker Degenerative lumbar spinal stenosis Asthma Anxiety Depression Chronic pain GERD (gastroesophageal reflux disease) Screening for colon cancer Home Medications ?Medication ?Instructions ?Recorded ?Last Taken ?Type albuterol sulfate 90 mcg/actuation 2 puff IH PRN PRN A sthma 11/04/16 Unknown History aerosol inhaler atorvastatin 20 mg tablet 20 mg PO QHS CHOLESTEROL 10/2203/15/21 History cholecalciferol (vitamin D3) 50 6,000 unit PO DAILY IRIZARRY PPLEMENT 11/04/16 03/15/21 History mcg (2,000 unit) capsule citalopram 40 mg tablet 20 mg PO DAILY anxiety 11/0403/15/21 History fish oil-dha-epa 1,200 mg-144 1 ea PO DAILY SUPPLEMENT 11/04/16 03/16/21 History mg-216 mg capsule levothyroxine 112 mcg tablet 112 mcg PO DAILY thyroid 11/04/16 03/16/21 History melatonin 5 mg-pyridoxine (vitamin 1 ea PO QHS SLEEP 0 11/04/16 Unknown History B6) 1 mg tablet hsoyubkyosnj-oppymedu-gtrhqrr-folic 1 ea PO DAILY SUPP LEMENT 11/04/16 03/16/21 History acid 400 mcg-vit K1 20 mcg tablet vitamin E 268 mg (400 unit) capsule 400 unit PO DAILY SUPPLEMENT 11/04/16 03/16/21 History calcium 500 mg (as carbonate)-vit 2 tab PO QHS SUPPLEM ENT 11/08/16 03/15/21 History D3 10 mcg (400 unit) chewable tablet losartan 100 mg tablet (Cozaar) 100 mg PO DAILY BP #30 tabs 03/17/21 Unknown Rx famotidine 40 mg tablet 40 mg PO DAILY GERD 04/24/21 Unknown History fluticasone 250 mcg-salmeterol 50 1 ea inhalation BID ASTHMA 01/22/25 Unknown History mcg/dose blistr powdr for inhalation (Valentina Bahenapacheco) loratadine 10 mg tablet (Allergy 10 mg PO DAILY ALLERG IES 01/22/25 Unknown History Relief (loratadine)) venlafaxine 75 mg capsule,extended 150 mg PO DAILY DEP RESSION 01/22/25 Unknown History release 24 hr Allergy/AdvReac Type Severity Reaction Status Date / Time ubidecarenone (From H2Q Allergy Severe Nausea/Vom/ Verified 01/22/25 10:14 CoQ10) Diarrhea codeine Allergy Rash Verified 01/22/25 10:13 bismuth subsalicylate (From AdvReac Nausea/Vom/ Verified 01/22/25 10:13 Pepto-Bismol) Diarrhea diphenhydramine HCl (From AdvReac Nausea/Vom/ Verified 01/22/25 10:13 Benadryl) Diarrhea simvastatin (From Zocor) AdvReac Nausea Verified 01/22/25 10:13 Surgical History (Updated 01/22/25 @ 10:33 by Yulia Winslow) History of cardiac catheterization History of partial knee replacement Hx of surgical procedure Hx of hysterectomy Hx of breast biopsy History of left heart catheterization (03/17/21) H/O thyroidectomy History of appendectomy Social History Smoking Status: Never smoker Audit: Pertinent Findings Pertinent Findings EKG Perinent findings: 03/17/2021. Normal sinus rhythm 60 bpm. Normal EKG. Echo (EF%) pertinent findings: 03/16/2021. Normal size function. EF 55%. Harvey nt foramen ovale. Pulmonary artery pressure 44. Consult pertinent findings: Cardiology 04/24/2021. 04E. Pericarditis. Mild. Appears to resolve with nonsteroidals. Continue observation only. Hypertension. Under good control. Recommendation Anesthesia Recommendation Anesthesia recommendation: OPTIMIZED for anesthesia
[2025-01-23] VITALS (14 sets, daily range): BP systolic 116–174; BP diastolic 50–88; PULSE 57–78; RESP 13–21; TEMP 36–36.7; O2SAT 18–100; BMI 37.0
--- NOTE | 2025-01-23 08:47 | PRE.ANES_ITS ---
ASA Classification* ASA Classification ASA Classification: 2 Assessment & Plan Anesthesia* Anesthesia Assessment Anesthesia Assessment: Discussed sedation and/or anesthesia options, risks, benefits, and alternatives with patient/parents/legal guardian/POA. Questions invited. The patient/parents/legal guardian/POA seems to understand and agrees to proceed with anesthesia plan. Reviewed the physical assessment, medical history, allergy history and patient home medications list prior to surgery/procedure/anesthetic and documented any changes. Performed airway and anesthesia risk assessments. Anesthesia Type Anesthesia Type: General Anesthesia Focused Assessment* Airway Assessment Mouth opens: >3 cm Mallampati Score: II Focused Labs Anesthesia Preop lab: CBC WBC 7.8 K/mm3 (4.4-11.0) 01/16/25 13:01/16/25 RBC 4.79 M/mm3 (4.2-5.4) 01/16/25 13:01/16/25 Hgb 13.1 g/dL (12.0-15.0) 01/16/25 13:26 01/16/25 Hct 41.1 % (37-47) 01/16/25 13:26 01/16/25 Plt Count 284 K/mm3 (150-450) 01/16/25 13:26 01/16/25 CHEMISTRY Potassium 4.0 mmol/L (3.3-5.1) 01/16/25 13:16 01/16/25 Sodium 137 mmol/L (133-145) 01/16/25 13:16 01/16/25 Magnesium 2.3 mg/dL (1.5-2.2) H 01/16/25 15:05 01/16/25 Phosphorus 3.1 mg/dL (2.5-4.9) 06/01/12 11:53 06/01/12 BUN 14 mg/dL (4-19) 01/16/25 13:16 01/16/25 Creatinine 0.92 mg/dL (0.70-1.20) 01/16/25 13:16 01/16/25 Glucose 107 mg/dL (70-99) H 01/16/25 13:16 01/16/25 TSH 0.576 uIU/mL (0.300-4.200) 01/16/25 13:16 01/03 12/28 COAG PT 13.7 SECONDS (11.7-14.9) 01/16/25 13:16 Pre-Assessment Diagnosis/Proposed Procedure Planned Operative Procedure(s): 360 LUMBAR FUSION L3-L4 L4-L5 POSSIBLE CEMENT AUGMENTATION Anesthesia History 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 When Was Last Pacemaker Check QUESTION #4 FULL TEXT: You/Your Family Experience fever (hyperthermia) with Anesthesia Last Oral Intake Last Oral intake: Last Oral Intake NPO since Meds taken in AM with sips of water? 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 Has anyone observed you stop No 01/22/25 10:33 breathing during sleep? STOP Results Negative 01/22/25 10:33 QUESTION #5 FULL TEXT : Do you snore loudly (louder than talking or can be heard through closed doors)? 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 Specify any problems Hx of Preganancy in last 3 No 01/22/25 10:33 Months Nurse Filling Out Transfusion VCHRISTIN 01/22/25 10:33 & Questions: Date: 01/22/25 01/22/25 10:33 Time: 10:37 01/22/25 10:33 Patient unable to answer at this time (ie. 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 Hx Now Gestational Age (in weeks): EDC: Hx Hx Para Hx Section SAB Active Medications Active Medications: Current Medications Generic Name Dose Route Start Last Admin Trade Name Freq PRN Reason Stop Dose Admin Acetaminophen 1,000 mg 01/23/25 11:15 Acetaminophen 500 Mg Tablet PO 01/23/25 11:16 PREOP ONE Cefazolin Sodium 2 gm/ Sodium 110 mls @ 150 mls/hr 01/23/25 11:15 Chloride IV 01/23/25 11:58 INTRAOP ONE Tranexamic Acid 1,000 mg/ 110 mls @ 440 mls/hr 01/23/25 11:15 Sodium Chloride IV 01/23/25 11:29 INTRAOP ONE Tranexamic Acid 1,000 mg/ 110 mls @ 440 mls/hr 01/23/25 11:15 Sodium Chloride IV 01/23/25 11:29 INTRAOP ONE Magnesium Sulfate 1 gm/ 102 mls @ 408 mls/hr 01/23/25 11:15 Dextrose IV 01/23/25 11:29 INTRAOP ONE Lactated Ringer's 1,000 mls @ 15 mls/hr 01/23/25 08:45 IV .Q48H IAN Insulin Human Lispro 1 - 6 unit 01/23/25 11:15 Insulin Lispro 100 Unit/Ml Insuln.Pen SC 01/23/25 18:00 Q4H PRN PRN BG>/= 180, SEE PROTOCOL Protocol PFSH Medical History Wears dentures Wears glasses Post-menopausal Anxiety Thyroid disease Walker as ambulation aid Ambulates with cane Arthritis Kidney stone Back pain Injury of back Vertigo Gastric reflux History of pain when walking History of echocardiogram Cardiology follow-up encounter History of ganglion cyst Obesity Hyperlipidemia Patent foramen ovale Essential hypertension History of non-ST elevation myocardial infarction (NSTEMI) (03/16/21) Osteoarthritis Osteoporosis Non-smoker Degenerative lumbar spinal stenosis Asthma Anxiety Depression Chronic pain GERD (gastroesophageal reflux disease) Screening for colon cancer Home Medications ?Medication ?Instructions ?Recorded ?Last Taken ?Type albuterol sulfate 90 mcg/actuation 2 puff IH PRN PRN A sthma 11/04/16 Unknown History aerosol inhaler atorvastatin 20 mg tablet 20 mg PO QHS CHOLESTEROL 10/2203/15/21 History cholecalciferol (vitamin D3) 50 6,000 unit PO DAILY IRIZARRY PPLEMENT 11/04/16 03/15/21 History mcg (2,000 unit) capsule citalopram 40 mg tablet 20 mg PO DAILY anxiety 11/0403/15/21 History fish oil-dha-epa 1,200 mg-144 1 ea PO DAILY SUPPLEMENT 11/04/16 03/16/21 History mg-216 mg capsule levothyroxine 112 mcg tablet 112 mcg PO DAILY thyroid 11/04/16 03/16/21 History melatonin 5 mg-pyridoxine (vitamin 1 ea PO QHS SLEEP 0 11/04/16 Unknown History B6) 1 mg tablet edbvnompfcjl-rrlddjss-mdxjoio-folic 1 ea PO DAILY SUPP LEMENT 11/04/16 03/16/21 History acid 400 mcg-vit K1 20 mcg tablet vitamin E 268 mg (400 unit) capsule 400 unit PO DAILY SUPPLEMENT 11/04/16 03/16/21 History calcium 500 mg (as carbonate)-vit 2 tab PO QHS SUPPLEM ENT 11/08/16 03/15/21 History D3 10 mcg (400 unit) chewable tablet losartan 100 mg tablet (Cozaar) 100 mg PO DAILY BP #30 tabs 03/17/21 Unknown Rx famotidine 40 mg tablet 40 mg PO DAILY GERD 04/24/21 Unknown History fluticasone 250 mcg-salmeterol 50 1 ea inhalation BID ASTHMA 01/22/25 Unknown History mcg/dose blistr powdr for inhalation (Wixela Inhub) loratadine 10 mg tablet (Allergy 10 mg PO DAILY ALLERG IES 01/22/25 Unknown History Relief (loratadine)) venlafaxine 75 mg capsule,extended 150 mg PO DAILY DEP RESSION 01/22/25 Unknown History release 24 hr Allergy/AdvReac Type Severity Reaction Status Date / Time ubidecarenone (From H2Q Allergy Severe Nausea/Vom/ Verified 01/22/25 10:14 CoQ10) Diarrhea codeine Allergy Rash Verified 01/22/25 10:13 bismuth subsalicylate (From AdvReac Nausea/Vom/ Verified 01/22/25 10:13 Pepto-Bismol) Diarrhea diphenhydramine HCl (From AdvReac Nausea/Vom/ Verified 01/22/25 10:13 Benadryl) Diarrhea simvastatin (From Zocor) AdvReac Nausea Verified 01/22/25 10:13 Surgical History History of cardiac catheterization History of partial knee replacement Hx of surgical procedure Hx of hysterectomy Hx of breast biopsy History of left heart catheterization (03/17/21) H/O thyroidectomy History of appendectomy Social History Smoking Status: Never smoker Review of Systems (Anesthesia) ROS Narrative System reviewed and no additional complaints, except as documented.
[2025-01-23] MEDS: Lactated Ringers 1,000 ML 15 ML IV (09:00)
[2025-01-23] MEDS: Magnesium 1 GM over 15 mins IV (09:05)
[2025-01-23] MEDS: Acetaminophen 500 MG Tablet 1000 MG PO ×2 (09:21→22:14)
--- NOTE | 2025-01-23 10:37 | PCM.HP.BLA ---
History and Physical Date of Admission: 01/23/25 MR#: [id number] Acct: [id number] Name: EVELIN SANDHU Rep #: [id number] : 1950 Provider: Dr. Shaq Chandra MD Age/Sex: 74/F Location: [facility] [email or web address] Status: Signed Intake Vital Signs 11/29/2512:54 Height 4 ft 8 in Weight: 165 lb BMI 37.0 Intake Visit Reasons: lumbar spine Chief Complaint: Lumbar spine pain Allergies codeine Allergy (Verified 11/29/24 13:58) Rashbismuth subsalicylate (From Pepto-Bismol) Adverse Reaction (Verified 11/29/24 13:58) Nausea/Vom/Diarrheadiphenhydramine HCl (From Benadryl) Adverse Reaction (Verified 11/29/24 13:58) Nausea/Vom/Diarrheasimvastatin (From Zocor) Adverse Reaction (Verified 11/29/24 13:58) Nausea Medications ?Medication ?Instructions ?Recorded ?Confirmed ?Type albuterol sulfate 90 mcg/actuation 2 puff IH PRN PRN Asthma 11/04/16 01/17/25 History aerosol inhaler ascorbic acid (vitamin C) 500 mg 500 mg PO DAILY@0800 11/04/16 01/17/25 History tablet atorvastatin 20 mg tablet 20 mg PO QHS 11/04/16 01/17/25 History cholecalciferol (vitamin D3) 50 6,000 unit PO DAILY 11/04/16 01/17/25 History mcg (2,000 unit) capsule citalopram 40 mg tablet 20 mg PO DAILY anxiety 11/04/16 01/17/25 History fish oil-dha-epa 1,200 mg-144 1 ea PO DAILY 11/04/16 01/17/25 History mg-216 mg capsule fluticasone furoate 100 1 puff IH DAILY 11/04/16 01/17/25 History mcg-vilanterol 25 mcg/dose inhalation powder levothyroxine 112 mcg tablet 112 mcg PO DAILY thyroid 11/04/16 01/17/25 History melatonin 5 mg-pyridoxine (vitamin 1 ea PO QHS 11/04/16 01/17/25 History B6) 1 mg tablet kfwmilsacwzo-ssyzsana-xsxztmo-folic 1 ea PO DAILY 11/04/16 01/17/25 History acid 400 mcg-vit K1 20 mcg tablet venlafaxine 37.5 mg 37.5 mg PO QHS 11/04/16 01/17/25 History tablet,extended release 24 hr vitamin E 268 mg (400 unit) capsule 400 unit PO DAILY 11/04/16 01/17/25 History calcium 500 mg (as carbonate)-vit 2 tab PO QHS 11/08/16 01/17/25 History D3 10 mcg (400 unit) chewable tablet gabapentin 100 mg capsule 100 mg PO TID nerve pain 03/16/21 01/17/25 History losartan 100 mg tablet (Cozaar) 100 mg PO DAILY #30 tabs 03/17/21 01/17/25 Rx nystatin 100,000 unit/gram topical 1 applic topical BID #30 grams 03/17/21 01/17/25 Rx powder famotidine 40 mg tablet 40 mg PO DAILY 04/24/21 01/17/25 History Have you fallen in the past year?: No PFSH Medical History Obesity Hyperlipidemia Patent foramen ovale Essential hypertension History of non-ST elevation myocardial infarction (NSTEMI) (03/16/21) Osteoarthritis Osteoporosis Non-smoker Degenerative lumbar spinal stenosis Asthma Anxiety Depression Chronic pain GERD (gastroesophageal reflux disease) Screening for colon cancer Surgical History History of left heart catheterization (03/17/21) H/O thyroidectomy History of appendectomy Social History Smoking Status: Never smoker HPI lumbar spine Details: This documentation accurately reflects the service provided and the decisions made by me, Dr. Shaq Chandra MD 01/17/25 1100. Part of today?s visit was documented by Jackeline MAZARIEGOS, acting as scribe. EVELIN SANDHU is a 74 year old F here today for preop, lumbar spine, dos 01/23/25. She continues to have low back pain with difficulty walking distances. She uses a cane for short distances. She takes phzl-tac-jgliflc calcium and vitamin D supplementation. 11/29/24: EVELIN SANDHU is a 74 year old F here today for lumbar spine pain. This started in June 2024. Patient schwartz ambulate with a cane as she is unable to use a walker in her mobile home. Patient woke up with lower back pain one morning. She effie to get out of the chair and fell. The pain feels like there are a bunch of needles poking her. It hurts worse in the lower back and in the gluteus. Sometimes she will get lower back pain and down the back of both legs. Dr. Combs has been doing back injections since she was diagnosed with spinal stenosis. The last shot she got was in 07/31/2024 only gave her 1 day of relief, the injection before that one gave her relief for 2 months. She has been receiving injections since 2012. Denies any back surgery. Patient did pt 2 years ago and it didn't help. Her balance isn't good, she has to hold on to items around the house. Patient has to use a cane, both of her legs will give out. Patient denies any numbness or tingling. When she falls it is usually because her legs are painful and give out on her. Her leg pain is over her posterior legs that stops at the ankle. Patient is unable to walk more than 1/2 a mile when using her cane. Ortho Exam General General: Yes no acute distress Neurologic: Yes alert and Yes oriented x3 Spine SPINE TESTING CERVICAL THORACIC LUMBAR Musculoskeletal Strength 0=absent - 5=normal Details: Examination the back shows right worse than left paraspinal tenderness. Neurologic motion of lower extremity shows 5 x 5 power normal shows normal sensations in all dermatomes. Knee reflexes are brisk bilaterally. Severe difficulty with balance. Coding Level of Care Code Off vis,est,level 4 Diagnoses Spondylolisthesis, lumbar region M43.16 Spinal stenosis of lumbar region with neurogenic claudication M48.062 Osteopenia determined by x-ray M85.80 Synovial cyst of lumbar facet joint M71.38 Balance problem R26.89 Other secondary scoliosis, lumbar region M41.56 Scoliosis type: other secondary scoliosis Time Spent (min) 35 Assessment and Plan Assessment and Plan (1) Spondylolisthesis, lumbar region: Status: Acute (2) Spinal stenosis of lumbar region with neurogenic claudication: Status: Acute (3) Osteopenia determined by x-ray: Status: Acute (4) Synovial cyst of lumbar facet joint: Status: Acute (5) Balance problem: Status: Acute (6) Lumbar scoliosis: Status: Acute Qualifiers: Scoliosis type: other secondary scoliosis Qualified Code(s): M41.56 - Other secondary scoliosis, lumbar region Plan Again reviewed x-rays and MRI done recently with the patient. These show L4-5 grade 1 spondylolisthesis with mild mild dynamic instability. MRI shows L3-5 severe stenosis with right facet synovial cyst at L4-5. Osteopenia noticed on x-rays. She was height loss at L5-S1 and also other lumbar levels. Lumbar degenerative scoliosis noticed. Explained all imaging findings in detail. I informed patient that she does have stenosis with instability in her lumbar spine which has caused the formation of a cyst. I spoke with patient that the the balance issues that she is having and her hyperreflexia are not coming from her lower back and may have additional pathology in the brain or spinal cord. Discussed that she may consult a neurologist for this. Patient attributes this to vertigo but does not seem to have any treatment for this. Explained to her the treatment options for lumbar pathology which include continued nonoperative treat measures versus surgery. Explained to her that the lumbar pathology is not causing the balance issues and will not likely improve from a lumbar surgery. Patient mentioned that she has exhausted nonsurgical treatment and her walking distances neurogenic claudication is worsening with time and she would like to proceed with surgical intervention. I explained the surgical procedure to patient. Surgery will be L3-5 anterior posterior fusion with indirect decompression with possible cement augmentation. All risk benefits and alternatives were discussed in detail. The risks include but are not limited to infection, bleeding, injury to nerves and vessels, hematoma formation, need for further surgery, ileus, visceral injury, vascular injury, DVT, pulm embolism, pneumonia, atelectasis, nerve root injury, persistent pain, persistent numbness and weakness, foot drop, cement embolism, hardware failure, pseudoarthrosis, adjacent segment degeneration. Patient understands and agrees to proceed with surgery. Consent was signed.
--- NOTE | 2025-01-23 11:22 | RAD_ITS ---
PROCEDURE: LUMBAR SPINE 2 OR 3 VIEWS 01/23/2025 REASON FOR EXAM: 360 LUMBAR FUSION L3-4 L4-5 TECHNIQUE: Fluoroscopy with 17 spot images lumbar spine FINDINGS: Fluoroscopy time 134.3 seconds Cumulative dose 73.06 mGy Spot images with intervertebral disc spacers L3 through L5 with lateral anchor screw and bilateral posterior fusion with apparent methylmethacrylate associated with the bilateral transpedicular screws. Please see operative report for further detail. RAD/Lumbar Spine 2 or 3 Views IMPRESSION: Fluoroscopy as above. Reading Location: [id number]
[2025-01-23] MEDS: Cefazolin 2 GM in 0.9% Normal Saline (100mL Bag) 100 ML IV ×2 (11:28→19:12)
[2025-01-23] MEDS: TRANEXAMIC ACID 1,000 MG in 0.9% Normal Saline (100mL Bag) 100 ML 440 MG IV ×2 (11:40→15:00)
[2025-01-23] MEDS: Ropivacaine 0.5% 30 ML Vial (15:18)
--- NOTE | 2025-01-23 15:37 | OP.PCM_ITS ---
Procedures Musculoskeletal 20xxx-29xxx: Other Procedure See Report Operative Report (Standard) Operative Information Date of Procedure: 01/23/25 Pre-Operative Diagnosis: L4-5 spondylolisthesis, L3-5 disc degeneration, stenosis with neurogenic claudication Post-Operative Diagnosis: Same Surgery/Procedure Performed: L3-5 oblique lumbar lumbar fusion orthopedics teacher: Yes Cylinder Handler: Tamara Pickering Tasks completed by greenhouse assistant: Closing, Removing tissue, Hemostasis: Electrocautery and Retracting Type of Anesthesia: General RN Documented Start/Stop Times: Operation Date: 01/23/25 11:15 Case Time Into Pre-Op 01/23/25 08:34 Out of Pre-Op 01/23/25 11:01 Anesthesia Start 01/23/25 11:03 Into Room 01/23/25 11:03 Procedure Start 01/23/25 11:40 Procedure End 01/23/25 15:26 Anesthesia End 01/23/25 15:37 Out of Room 01/23/25 15:37 Procedure Start Time: 11:40 Procedure Stop Time: 15:26 Select all DRAINS/GRAFTS/IMPLANTS that apply: Graft Graft details: Medtronic infuse BMP sponge, allograft cancellous chips and Implanted device Implanted device details: DePuy cougar lateral lumbar interbody cage?peek Estimated Blood Loss: 150 cc Specimen collected: No Description of surgery: Preoperative diagnosis: L4-5 spondylolisthesis, L3-5 disc degeneration, stenosis with neurogenic claudication Postoperative diagnosis: Same Name of procedures L3-5 oblique lumbar interbody fusion (OLIF), minimally invasive left sided approach, lateral decubitus: ? L3-4 anterolateral spinal fusion 05902 ? L4-5 anterolateral fusion 19488/51 ? L3-4 insertion of cage 34324 ? L4-5 insertion of cage 81452/51 ? Allograft cancellous chips with Medtronic infuse BMP sponge Attending Surgeon: Dr. Shaq Chandra Estimated blood loss: 150 mL Anesthesia: General Complications: None Indications: Patient is a 74-year-old pleasant lady who has had a long history of low back pain and bilateral lower extremity radiation, difficulty walking distances. Xrays & MRI revealed L4-5 spondylolisthesis, L3-5 disc degeneration with stenosis, facet synovial cyst at L4-5. After undergoing a prolonged period of nonoperative treatment, the patient elected to undergo surgical decompression & fusion. All surgical options were discussed with the patient including anterior and posterior approaches. All risks and benefits associated with the procedure were explained to the patient. The risks include but are not limited to infection, bleeding, injury to nerves and vessels including major vessels like IVC and aorta, persistent paresthesia, persistent pain, dural tear, need for further procedures, adjacent segment degeneration, pseudoarthrosis, hardware failure, retrograde ejaculation, paralytic ileus, etc. Procedure: The patient was identified in the preoperative holding suite using Unique patient identifiers. Skin was marked, consent was reviewed, and all questions were answered. The patient was then brought back to the operative room. A surgical timeout was performed to make sure correct procedure was being done on the correct patient and all operative room staff were on the same page. General endotracheal anesthesia was then given to the patient. Burnett catheter was inserted. The patient was then carefully positioned in right lateral decubitus position with the left side up on a regular OR table. Axillary roll was placed and all bony prominences were well- padded. Hip positioners were placed in the posterior buttocks and anterior sternal area. The surgical area was prepped and draped in usual fashion. Preoperative antibiotic was injected IV as preoperative antibiotic. A final timeout was then again done just before starting the procedure. A 2 inch incision oblique was taken in the left lower quadrant of the abdomen 2 fingerbreadths away from the iliac crest and the lower ribs. Sharp dissection with Bovie was carried out up to the fascia covering the external oblique. The external oblique, internal oblique and transversus abdominis muscles were split along the muscle fibers and retroperitoneal space was entered. Sponge sticks were utilized to move the bowel and peritoneum wzx-jc-rfk-way and psoas muscle was exposed staying within the retroperitoneal plane. Remitlyframe retractor system was positioned and the retractor blade was applied onto the psoas. The interval between psoas and midline structures was developed and appropriate retractors were placed. Once adequate interval was cleared, a disc space was identified and a marker x-ray was taken. This identified the L4-5 disc level. The prepsoas interval was then traced inferiorly. Annulotomy was done with a long handled knife. Pituitary was used to remove disc material. Curettes were used to prepare the endplates. Disc space spreaders were utilized to distract and increase the disc height. Near complete discectomy was performed. Trials of serially increasing sizes were used. Significant low bone density was noticed with weak endplates and significant bleeding was noticed as well as endplate deformation by the trials. A Depuy [place] cage of size of the 18 x 50 x 12 mm with 15 degrees lordosis was packed with corticocancellous allograft bone chips with [employer] infuse BMP sponge. This was inserted into the L4-5 disc space. The retractors were then repositioned to expose the L3-4 disc and the procedure was repeated with complete discectomy and endplate preparation. Smaller disc distractors were also used to bluntly perform a contralateral annulotomy at both the levels. Cage size was 18 x 15 x 12 mm at L3-4. AP and lateral C-arm pictures were taken to confirm good position of the cage. Some bone chips were also packed around the cages. Screw with washer was placed into the lower L3 and L4 body with a washer partially covering the cage at L3-4 and L4-5 respectively. Hemostasis was confirmed. The retractor blades were removed. Closure was done in layers with a continuous strand of # 1 Vicryl in all muscle layers. 2-0 Vicryl was used for subcutaneous tissue and 4-0 for Monocryl for the skin. Steri-Strips were applied and 4 x 4 gauze and Tegaderm were applied. Annual Greenhouse Manager Tamara Pickering PA-C. My physician animal care assistant was a vital part of this case. They were important in appropriate retraction during the case, and protection of soft tissues during the procedure. Their intimate knowledge of the case and my steps aided in safe and expedient completion of the procedure as well as appropriate position of the patient during the surgery. They were also vital in assisting with closure under my direct supervision. Surgical Findings: See op note Complications Complications: No
--- NOTE | 2025-01-23 15:46 | PCM.POST.ANE ---
Anesthesia: Postop Eval I Current Vital Signs Temperature: 97.4 F Pulse Rate: 78 Blood Pressure: 116/76 Respiratory Rate: 16 Pulse Ox: 99 Oxygen Delivery Method: Simple Mask Oxygen Flow Rate (L/min): 8 Fraction of Inspired Oxygen (FIO2): 0.6 Assessment Airway patent: Yes Spontaneous unlabored respirations: Yes Mental status: Awake and Calm nausea: No Vomiting: No Anesthesia Complication: No Fluid Hydration Crystalloid volume administer (ml): 1,700 Total IV fluid infused: 1,700 Progress Note Anesthesia document: Postop Eval 1 completed: Yes
--- NOTE | 2025-01-23 15:47 | OP.PCM_ITS ---
Procedures Musculoskeletal [id number]-29xxx: Other Procedure See Report Operative Report (Standard) Operative Information Date of Procedure: 01/23/25 Pre-Operative Diagnosis: L4-5 spondylolisthesis, L3-5 disc degeneration, stenosis with neurogenic claudication Post-Operative Diagnosis: same Surgery/Procedure Performed: L3-5 posterior spinal instrumented fusion environmental remediation specialist: Yes Digital Camera Technician: Tamara Pickering Tasks completed by first officer: Closing, Implanting device, Hemostasis: Electrocautery and Retracting Type of Anesthesia: General RN Documented Start/Stop Times: Operation Date: 01/23/25 11:15 Case Time Into Pre-Op 01/23/25 08:34 Out of Pre-Op 01/23/25 11:01 Anesthesia Start 01/23/25 11:03 Into Room 01/23/25 11:03 Procedure Start 01/23/25 11:40 Procedure End 01/23/25 15:26 Anesthesia End 01/23/25 15:37 Out of Room 01/23/25 15:37 Procedure Start Time: 11:40 Procedure Stop Time: 15:26 Select all DRAINS/GRAFTS/IMPLANTS that apply: Graft Graft details: Allograft cancellous bone chips and Implanted device Implanted device details: DePuy Playerizeer prime pedicle screw instrumentation Estimated Blood Loss: 150 cc Specimen collected: No Description of surgery: Preoperative diagnosis: L4-5 spondylolisthesis, L3-5 disc degeneration, stenosis with neurogenic claudication Postoperative diagnosis: Same Name of procedures: L3-5 posterior percutaneous pedicle screw instrumented fusion, cement augmentation, prone: ? L3-4 posterior spinal fusion 07066 ? L3-5 posterior pedicle screw instrumentation 27152 ? L4-5 posterior fusion 99290/51 ? Allograft cancellous chips Attending Surgeon: Dr. Shaq Chandra Estimated blood loss: 150 mL (total for entire case) Anesthesia: General Complications: None Description of procedure: After the anterior procedure was complete, the patient was then turned supine. The patient was then transferred to Felipe table in prone position. Back was prepped and draped in usual fashion. C-arm AP view was then taken. C-arm was positioned in a way that L3 was centralized and superior endplate of was parallel to the beam. Spinous process was centered between the pedicles. Midline was marked with skin marker and lateral borders of the pedicles were also marked. Skin marker was also utilized to roby transversely across the middle of the pedicles at L3. 2 transverse paramedian incisions of 1 inch were placed. The fascia was incised vertically. Finger dissection was utilized to palpate the transverse process and facet joint. Viper Prime screws with towers were inserted and docked onto the transverse processes. This was then slowly moved medially to reach the superior articular process of L3. This was then confirmed on C-arm and then a mallet was utilized to drive the trocar into the pedicle going up to the medial wall of the pedicle on AP view. This was performed both sides. C-arm lateral view confirmed that the tip of the trocar was in the vertebral body, and the screw was advanced into the pedicle and vertebral body. This was repeated similarly at L4 and L5 bilaterally. Screw sizes were 7 x 50 mm at L3, L4 and L5 on both sides. Screw purchase was poor and decision was made to augment with cement. Cement was passed through the cannula and fenestrations of the screw under C-arm lateral view control. AP view was finally taken to make sure there was no worrisome extravasation. 65 mm precontoured titanium 5.5 mm lordotic adin on the right and 70 mm on the left were then passed through the screw extensions and reduced down to the screws with the help of Depuy Viper instrumentation system on both sides. AP and lateral view of the C-arm showed good positioning of the screws and cages. Final tightening with the torque screwdriver was then completed. Santos was utilized to roughen the facet joint at L3-4 L4-5 on the right side. Cancellous allograft bone chips mixed with bone marrow aspirate were then placed over this decorticated area. Hemostasis was achieved. Closure was done in layers with 0 Vicryls for the fascia, 2-0 Vicryls for the subcutaneous tissue, and Monocryl for the skin. Dermabond was applied. Dressings were applied covered with Tegaderm. The patient was then turned supine onto a hospital bed. The patient was extubated and taken to PACU in stable condition. The patient tolerated the procedure well and no complications occurred. Depuy Marion cage & Viper Prime minimally invasive pedicle screw instrumentation system was utilized in this case. No dural tear was identified intraoperatively. I was present for the entirety of the case and performed the surgery. Limousine Driver Tamara Pickering PA-C. My physician physician assistant primary care was a vital part of this case. They were important in appropriate retraction during the case, and protection of soft tissues during the procedure. Their intimate knowledge of the case and my steps aided in safe and expedient completion of the procedure as well as appropriate position of the patient during the surgery. They were also vital in assisting with closure under my direct supervision. Surgical Findings: See operative note Complications Complications: No
--- NOTE | 2025-01-23 16:24 | POSTOPAN2_ITS ---
Anesthesia Postop Eval I Sum Postop Eval Completion status Anesthesia document: Postop Eval 1 completed: Yes Anesthesia Postop Eval I Summary Anesthesia Postop Eval I Summary: Anesthesia Postop Eval I: Assessment Summary Airway patent Yes 01/23/25 15:47 BOOKKEEPING MACHINE [email or web address] Spontaneous unlabored Yes 01/23/25 15:47 BOOKKEEPING MACHINE MECHANIC.NFOR respirations Mental status Awake,Calm 01/23/25 15:47 BOOKKEEPING MACHINE MECHANIC.NFOR nausea No 01/23/25 15:47 BOOKKEEPING MACHINE MECHANIC.NFOR Vomiting No 01/23/25 15:47 BOOKKEEPING MACHINE MECHANIC.NFOR Anesthesia Postop Eval I: Fluid Summary Crystalloid volume administer 1,700 01/23/25 15:47 BOOKKEEPING MACHINE MECHANIC.NFOR (ml) Colloids volume administered ( ml) Blood Product volume administered (ml) Total IV fluid infused 1,700 01/23/25 15:47 BOOKKEEPING MACHINE [email or web address].NFOR Anesthesia Postop Eval I: Summary Notes Anesthesia Complication No 01/23/25 15:47 BOOKKEEPING MACHINE MECHANIC.NFOR Anesthesia Complication Comment: Post-operative progress note Anesthesia: Postop Eval II Evaluation Mental status: Awake Pain Level: 2 nausea: No Vomiting: No
--- NOTE | 2025-01-23 16:24 | PCM.POSTANE2 ---
Anesthesia Postop Eval I Sum Postop Eval Completion status Anesthesia document: Postop Eval 1 completed: Yes Anesthesia Postop Eval I Summary Anesthesia Postop Eval I Summary: Anesthesia Postop Eval I: Assessment Summary Airway patent Yes 01/23/25 15:47 PRESS CLIPPINGS CUTTER AND PASTER.[email or web address] Spontaneous unlabored Yes 01/23/25 15:47 PRESS CLIPPINGS CUTTER AND PASTER.NFOR respirations Mental status Awake,Calm 01/23/25 15:47 PRESS CLIPPINGS CUTTER AND PASTER.NFOR nausea No 01/23/25 15:47 PRESS CLIPPINGS CUTTER AND PASTER.NFOR Vomiting No 01/23/25 15:47 PRESS CLIPPINGS CUTTER AND PASTER.NFOR Anesthesia Postop Eval I: Fluid Summary Crystalloid volume administer 1,700 01/23/25 15:47 PRESS CLIPPINGS CUTTER AND PASTER.NFOR (ml) Colloids volume administered ( ml) Blood Product volume administered (ml) Total IV fluid infused 1,700 01/23/25 15:47 PRESS CLIPPINGS CUTTER AND PASTER.NFOR Anesthesia Postop Eval I: Summary Notes Anesthesia Complication No 01/23/25 15:47 PRESS CLIPPINGS CUTTER AND PASTER.NFOR Anesthesia Complication Comment: Post-operative progress note Anesthesia: Postop Eval II Evaluation Mental status: Awake Pain Level: 2 nausea: No Vomiting: No
--- NOTE | 2025-01-23 16:41 | SUR.PHASEI ---
1hr pacu time, no family to update at this time
--- NOTE | 2025-01-23 17:10 | SUR.PHASEI ---
attempted wean of 4l eras NC in pacu, patient drops to 85%, 4L placed back on patient.
--- NOTE | 2025-01-23 19:08 | PN.HOSP_ITS ---
Reason for Visit Reason for Visit: Diagnoses Encounter for other preprocedural examination (01/23/25) Subjective Subjective 74-year-old female with hypertension, depression, hypothyroidism, asthma, GERD, hypercholesterolemia, chronic lower back pain presented to [facility] 01/23/2025 for a lumbar spinal fusion. Hospitalist consulted for postop medical management. Pt evaluated at bedside post operatively. Pt tired but wakes up and answers questions appropriately. Has not eaten much post op (has liquid diet at bedside) but reports it's just because she does not feel like eating but does not have abdominal pain or nausea. No SOB or cough, no CP. Feeling somewhat sleepy but again, does wake up and answer questions appropriately. Discussed her venlafaxine and citalopram patient reports she is on both for depression and anxiety after her committed suicide in 2010 that she has been on both for a period of time, discussed the risk of adverse effects including serotonin syndrome especially with the Robaxin and she is okay with me holding citalopram tomorrow and she reports venlafaxine is more helpful 1 and would prefer to continue that Objective Data Objective Data Vital Signs: Vital Signs Temp Pulse Resp BP Pulse Ox O2 Del Method O2 Flow Rate 97.3 F L 73 18 174/82 H 100 Nasal Cannula 4 01/23/25 17:43 01/23/25 17:43 01/23/25 17:43 01/23/25 17:43 01/23/25 17:43 01/23/25 17:43 01/23/25 17:43 FiO2 0.6 01/23/25 15:47 Oxygen Flow Rate (L/min) 4 Oxygen Delivery Method Nasal Cannula Weight: 75 kg Body Mass Index (BMI) 37.0 Intake & Output: Intake and Output for Last 24 Hours 01/21/25 01/22/25 01/23/25 23:59 23:59 23:59 Output Total 600 / 600 Balance -600 / -600 Physical Exam Narrative General: Resting comfortably but wakes up and answers questions, oriented, no apparent distress HEENT: Atraumatic, normocephalic Eyes: extraocular movements grossly intact Neck: Supple Respiratory: normal respiratory effort Cardiovascular: no edema appreciated GI: nondistended Extremities: Moving all extremities Neuro: No overt focal neurological deficits Psych: Cooperative Assessment & Plan Assessment/Plan (1) Spondylolisthesis, lumbar region: PLAN: Plan #Hypertension -Would proceed with caution with the combination of meloxicam and losartan due to increased risk of kidney injury/adverse effects -Check AM labs -Presently hypertensive, can hold if BP drops w/ pain control but given significantly hypertensive lower suspicion of that happening #Depression/anxiety -Continue venlafaxine given its potential to help with pain and pt finds it more helpful, but patient is also on citalopram and the combination of an SSRI and SNRI may increase the risk of serious side effects including serotonin syndrome and would not necessarily recommend this combination in clinical practice -Will discontinue citalopram given the above as well as the patient has been started on Robaxin which does increase serotonin as well so the combination of all 3 of these increases the risk of serotonin syndrome even further -Would recommend patient discuss the combination of her SSRI and SNRI this with her prescribing physician on discharge #Hypothyroidism -Continue Synthroid # Chronic asthma -Continue home inhalers -Recommend incentive spirometer #GERD -Continue home famotidine # Hypercholesterolemia -Continue home statin #Chronic low back pain -Pre-Operative Diagnosis: L4-5 spondylolisthesis, L3-5 disc degeneration, stenosis with neurogenic claudication -Surgery/Procedure Performed: L3-5 posterior spinal instrumented fusion - Management/pain management per primary -PT/OT #DVT ppx: Timing and agent at the discretion of primary Rachell Deshpande MD Time spent in the patient's overall evaluation, decision-making process, review of diagnostic data, adjustment of management, discussion with other providers, nursing and ancillary staff involved in patient's care documentation, 35 Minutes Charges/Coding Visit Charges Office Visits / Consults: 12684 OV L4 Est 30min
[2025-01-23] MEDS: Budesonide Respules 0.5 MG/2 ML AMPUL.NEB. INHALATION (19:45)
[2025-01-23] MEDS: Albuterol 2.5 MG/3 ML VIAL.NEB. INHALATION (19:45)
[2025-01-23] MEDS: Senna/Docusate Sodium 1 Tablet 2 TABLET PO (22:14)
[2025-01-23] MEDS: Methocarbamol 500 MG Tablet 1000 MG PO (22:15)
[2025-01-23] MEDS: Atorvastatin Calcium 20 MG Tablet PO (22:15)
[2025-01-23] MEDS: Ondansetron 4 MG/2 ML Vial IV (22:35)
[2025-01-24] VITALS (8 sets, daily range): BP systolic 132–158; BP diastolic 61–83; PULSE 78–85; RESP 16–18; TEMP 36.6–37.9; O2SAT 93–96
[2025-01-24] MEDS: Ketorolac 15 MG/ML Vial IV (03:52)
[2025-01-24] MEDS: Cefazolin 2 GM in 0.9% Normal Saline (100mL Bag) 100 ML IV (03:53)
[2025-01-24] MEDS: Acetaminophen 500 MG Tablet 1000 MG PO ×3 (05:41→22:05)
[2025-01-24] MEDS: Levothyroxine 112 MCG Tablet PO (05:41)
[2025-01-24 05:42] LABS: Hematocrit 33.8 % (37-47); Mean Corp Hgb Conc 32.5 g/dL (32-36); Mean Corpuscular Hgb 28.1 pg (27.0-32.0); Mean Corpuscular Volume 86.4 fL (81-99); Mean Platelet Vol. 9.5 fl (6.2-12.0); Platelet Count 246 K/mm3 (150-450); RBC Distribution Width CV 13.5 % (11.6-14.6); RBC Distribution Width SD 42.6 fl (35.1-43.9); Red Blood Count 3.91 M/mm3 (4.2-5.4); White Blood Count 16.7 K/mm3 (4.4-11.0)
--- NOTE | 2025-01-24 06:00 | RAD_ITS ---
PROCEDURE: LUMBAR SPINE 2 OR 3 VIEWS 01/24/2025 REASON FOR EXAM: S/P LUMBAR FUSION TECHNIQUE: 2 view(s) of the lumbar spine FINDINGS: Patient is mildly rotated to the right. Status post intervertebral disc spacers with left lateral anchor screws and bilateral posterior fusion L3 through L5 appears intact and anatomic with associated methylmethacrylate within the vertebral bodies associated with the transpedicular screws. Suggestion of L4-5 greater than L3-4 possible extrusion of methylmethacrylate at the disc space. L5-S1 spondylosis/discogenic change. Osteopenia. Aortic atherosclerotic calcification. RAD/Lumbar Spine 2 or 3 Views IMPRESSION: Patient is mildly rotated to the right. Status post intervertebral disc spacer s with left lateral anchor screws and bilateral posterior fusion L3 through L5 appears intact and anatomic with associated meth ylmethacrylate within the vertebral bodies associated with the transpedicular screws. Suggestion of L4-5 greater than L3-4 possible extrusion of methylmethacrylate a t the disc space. L5-S1 spondylosis/discogenic change. Osteopenia. Reading Location: [id number]
[2025-01-24 06:23] LABS: Anion Gap 12 (5-15); BUN 14 mg/dL (4-19); BUN/Creat Ratio 14.9 RATIO (10-20); Calcium,Total 8.5 mg/dL (7.6-11.0); Carbon Dioxide 21.2 mmol/L (21.0-32.0); Chloride 103 mmol/L (98-108); Creatinine, Serum 0.95 mg/dL (0.70-1.20); EST Glomerular Filtration Rate 63 (>60); Estimated Creatinine Clearance 46.28 ml/min (50-250); Glucose 142 mg/dL (70-99); Potassium 4.2 mmol/L (3.3-5.1); Sodium Level 136 mmol/L (133-145)
--- NOTE | 2025-01-24 07:29 | PCM.PN.HOSP ---
Reason for Visit Reason for Visit: Chronic low back pain secondary to spondylolisthesis and stenosis Subjective Subjective Patient states she is doing well. Has no complaints at this time. States she slept very well last night. Waiting on plans for discharge. Objective Data Objective Data Vital Signs: Vital Signs Temp Pulse Resp BP Pulse Ox O2 Del Method O2 Flow Rate 97.9 F 81 18 158/83 H 93 Room Air 1 01/24/25 03:32 01/24/25 03:32 01/24/25 03:32 01/24/25 03:32 01/24/25 03:32 01/24/25 03:32 01/23/25 22:11 FiO2 0.6 01/23/25 15:47 Oxygen Flow Rate (L/min) 1 Oxygen Delivery Method Room Air Weight: 75 kg Body Mass Index (BMI) 37.0 Intake & Output: Intake and Output for Last 24 Hours 01/22/25 01/23/25 01/24/25 23:59 23:59 23:59 Intake Total 110 / 110 710 / 710 Output Total 600 / 600 Balance -490 / -490 710 / 710 Lab / Micro Data 01/24/25 05:03 01/24/25 05:03 Labs: Laboratory Results - last 24 hr 01/24/25 05:03: WBC 16.7 H, RBC 3.91 L, Hgb 11.0 L, Hct 33.8 L, MCV 86.4, MCH 28.1, MCHC 32.5, RDW Std Deviation 42.6, RDW Coeff of Yadira 13.5, Plt Count 246, MPV 9.5, Sodium 136, Potassium 4.2, Chloride 103, Carbon Dioxide 21.2, Anion Gap 12, BUN 14, Creatinine 0.95, Estim Creat Clear Calc 46.28 L, Est GFR (MDRD) Non-Af 63, BUN/Creatinine Ratio 14.9, Glucose 142 H, Calcium 8.5 Radiography Diagnostic Testing: Radiology Impression Lumbar Spine X-Ray 01/23/25 11:22 IMPRESSION: Fluoroscopy as above. Reading Location: [facility] Lumbar Spine X-Ray 01/24/25 06:00 IMPRESSION: Patient is mildly rotated to the right. Status post intervertebral disc spacers with left lateral anchor screws and bilateral posterior fusion L3 through L5 appears intact and anatomic with associated methylmethacrylate within the vertebral bodies associated with the transpedicular screws. Suggestion of L4-5 greater than L3-4 possible extrusion of methylmethacrylate at the disc space. L5-S1 spondylosis/discogenic change. Osteopenia. Reading Location: [facility] Physical Exam Const alert, oriented x3, no apparent distress, healthy appearing and well nourished Constitutional Narrative: Elderly, obese, white female, sitting up in a chair at the bedside, appears well, nontoxic HEENT head/scalp atraumatic and moist oral mucous membranes Head and Scalp: normocephalic Resp normal respiratory effort, no retractions, no use of accessory muscles and clear to auscultation bilaterally Auscultation: Negative for rales, rhonchi or wheezes Cardio regular rate, regular rhythm, S1 normal heart sound, S2 normal heart sound, no murmurs, no rub, no gallops and no clicks GI normal to inspection, nondistended, normoactive bowel sounds, soft to palpation and non-tender Extremity no clubbing, cyanosis or edema Neuro moves all extremities and no focal motor deficits Speech: speech normal Psych affect normal Psych Narrative: Very pleasant, interacts appropriately Assessment & Plan Assessment/Plan (1) Status post lumbar spinal fusion: (2) Leukocytosis: PLAN: Plan Low back pain secondary to stenosis and spondylolisthesis with neurogenic claudication - Postop day 1 L3-5 posterior spinal instrumented fusion - Pain management per primary service - Recommend bowel regimen - PT/OT per primary service Leukocytosis - Suspect reactive - No signs of infection - Repeat in a.m. if not discharged Anemia - Mild - Likely related to blood loss and surgery and dilution from IV fluids - Repeat in a.m. if still here Essential hypertension/hyperlipidemia - Continue home losartan - Watch renal function closely with combination of meloxicam - Continue home statin Hypothyroidism - Continue on Synthroid Insulin resistance - A1c is 5.8 - Ongoing outpatient follow-up GERD - Continue home famotidine Asthma/allergies - No signs of acute exacerbation - Continue as needed albuterol - Continue home inhalers - Continue home loratadine Depression/anxiety -Continue venlafaxine given its potential to help with pain and pt finds it more helpful, but patient is also on citalopram and the combination of an SSRI and SNRI may increase the risk of serious side effects including serotonin syndrome and would not necessarily recommend this combination in clinical practice -Will discontinue citalopram given the above as well as the patient has been started on Robaxin which does increase serotonin as well so the combination of all 3 of these increases the risk of serotonin syndrome even further -Would recommend patient discuss the combination of her SSRI and SNRI this with her prescribing physician on discharge DVT prophylaxis - Chemoprophylaxis per primary service - SCDs Disposition: -Okay to discharge from medical standpoint. Patient is clinically doing very well. Dr. Chandra notified. Will sign off. Please reconsult if needed. Charges/Coding Visit Charges Inpatient E&M: 48337 Subs Hosp L2
--- NOTE | 2025-01-24 09:00 | PCM.PN.ORT ---
Subjective Subjective Postop day 1 status post L3-5 fusion. Pain is mostly in the abdominal incision than the back. Has some difficulty with left hip flexion which is expected. No flatus yet. Was able to walk to the bathroom with nursing. Objective Data Objective Data Vital Signs: Vital Signs Temp Pulse Resp BP Pulse Ox O2 Del Method O2 Flow Rate 98.0 F 78 16 151/68 H 94 Room Air 1 01/24/25 08:02 01/24/25 08:02 01/24/25 08:02 01/24/25 08:02 01/24/25 08:02 01/24/25 08:09 01/23/25 22:11 FiO2 0.6 01/23/25 15:47 Oxygen Flow Rate (L/min) 1 Oxygen Delivery Method Room Air Weight: 165 lb 5.547 oz Body Mass Index (BMI) 37.0 Intake & Output: Intake and Output for Last 24 Hours 01/22/25 01/23/25 01/24/25 23:59 23:59 23:59 Intake Total 110 / 110 1055 / 1055 Output Total 600 / 600 Balance -490 / -490 1055 / 1055 Lab / Micro Data 01/24/25 05:03 01/24/25 05:03 Labs: Laboratory Results - last 24 hr 01/24/25 05:03: WBC 16.7 H, RBC 3.91 L, Hgb 11.0 L, Hct 33.8 L, MCV 86.4, MCH 28.1, MCHC 32.5, RDW Std Deviation 42.6, RDW Coeff of Yadira 13.5, Plt Count 246, MPV 9.5, Sodium 136, Potassium 4.2, Chloride 103, Carbon Dioxide 21.2, Anion Gap 12, BUN 14, Creatinine 0.95, Estim Creat Clear Calc 46.28 L, Est GFR (MDRD) Non-Af 63, BUN/Creatinine Ratio 14.9, Glucose 142 H, Calcium 8.5 Radiography Diagnostic Testing: Radiology Impression Lumbar Spine X-Ray 01/23/25 11:22 IMPRESSION: Fluoroscopy as above. Reading Location: [facility] Lumbar Spine X-Ray 01/24/25 06:00 IMPRESSION: Patient is mildly rotated to the right. Status post intervertebral disc spacers with left lateral anchor screws and bilateral posterior fusion L3 through L5 appears intact and anatomic with associated methylmethacrylate within the vertebral bodies associated with the transpedicular screws. Suggestion of L4-5 greater than L3-4 possible extrusion of methylmethacrylate at the disc space. L5-S1 spondylosis/discogenic change. Osteopenia. Reading Location: [id number] Physical Exam Narrative Dressing?CDI. Neurologic evaluation of lower extremity shows 5 x 5 power in all muscles except for left hip flexion which is painful. Abdomen is soft. Assessment & Plan Assessment/Plan (1) Status post lumbar spinal fusion: PLAN: Plan Postop day 1 status post L3-5 fusion with cement augmentation. X-rays done. Reviewed. Look good. Clear liquids until passes flatus. Discharge pending flatus, tolerating solid diet, PT clearance. Patient lives alone.
[2025-01-24] MEDS: Losartan Potassium 100 MG Tablet PO (10:35)
[2025-01-24] MEDS: Meloxicam 15 MG Tablet PO (10:35)
[2025-01-24] MEDS: Venlafaxine XR 150 MG Capsule PO (10:35)
[2025-01-24] MEDS: Loratadine 10 MG Tablet PO (10:35)
[2025-01-24] MEDS: Famotidine 20 MG Tablet 40 MG PO (10:36)
[2025-01-24] MEDS: Methocarbamol 500 MG Tablet 1000 MG PO ×4 (10:36→22:05)
[2025-01-24] MEDS: Senna/Docusate Sodium 1 Tablet 2 TABLET PO ×2 (10:36→22:05)
--- NOTE | 2025-01-24 11:05 | CASEMGMT ---
ERLIN FRANKEL Assessment: Face to Face with pt for initial transition planning/care coordination assessment. ERLIN FRANKEL introduced self and role at [facility], pt voices understanding and consents to assessment. Pt is A&O x4 and answers all questions appropriately at this time. Pt is sitting up in chair, dressed in no distress. Care providers, pharmacy, and demographics verified/updated. Admitting Dx: s/p lumbar fusion Strata Score: 2 PCP:Cliff Specialists:Prateek, ortho; Lauryn, pain mgmt Preferred Pharmacy: [facility] Insurance: [facility] Prescription Benefit: yes LNOK: Ping Olivarez, friend Living Arrangements: Pt lives alone in a mobile home with 4 steps to enter with bilat rails. Pt reports prior to surgery she was I in ADL/IADLs and denies concerns at home. Pt microwaves meals, sponge bathes, does own laundry and has groceries delivered. Pt neighbor can assist pt as needed. Transportation: Pt drives self and denies concerns with transportation. Pt states her neighbor can also assist with transport. DME:[facility] HHC/SNF: Pt has had HHC in the past but cannot recall name of agency, denies SNF stays. Pt states no concerns with going home at time of dc. Pt states no further concerns/needs. CM to follow. Advised pt to ask CM if any further questions/concerns/needs arise, voices understanding. Pt Goal: Home Plan: Home Herb KERN CM
--- NOTE | 2025-01-24 13:40 | NURSING ---
Addendum: Pt came from post op from surgery not ER.
[2025-01-24] MEDS: Atorvastatin Calcium 20 MG Tablet PO (22:05)
[2025-01-25] MEDS: Levothyroxine 112 MCG Tablet PO (03:50)
[2025-01-25] MEDS: oxyCODONE 5 MG Tablet PO (03:50)
[2025-01-25] MEDS: Acetaminophen 500 MG Tablet 1000 MG PO (03:51)
[2025-01-25 03:52] VITALS: BP 141/79; PULSE 79; RESP 16; TEMP 36.8; O2SAT 94
[2025-01-25 07:12] VITALS: O2SAT 96
[2025-01-25 08:00] VITALS: BP 148/82; PULSE 72; RESP 18; TEMP 36.8; O2SAT 91
[2025-01-25] MEDS: Senna/Docusate Sodium 1 Tablet 2 TABLET PO (08:55)
[2025-01-25] MEDS: Venlafaxine XR 150 MG Capsule PO (08:56)
[2025-01-25] MEDS: Meloxicam 15 MG Tablet PO (08:56)
[2025-01-25] MEDS: Losartan Potassium 100 MG Tablet PO (08:56)
[2025-01-25] MEDS: Loratadine 10 MG Tablet PO (08:56)
[2025-01-25] MEDS: Methocarbamol 500 MG Tablet 1000 MG PO (08:56)
[2025-01-25] MEDS: Famotidine 20 MG Tablet 40 MG PO (08:56)
--- NOTE | 2025-01-25 09:49 | PCM.PN.ORT ---
Subjective Subjective Postop day 2 status post L3-5 fusion. Pain is mostly in the abdominal incision than the back. Has some difficulty with left hip flexion which is expected. Passed flatus. Tolerated solid diet. Walked with PT yesterday. Objective Data Objective Data Vital Signs: Vital Signs Temp Pulse Resp BP Pulse Ox O2 Del Method O2 Flow Rate 98.2 F 72 18 148/82 H 91 Room Air 1 01/25/25 08:00 01/25/25 08:00 01/25/25 08:00 01/25/25 08:00 01/25/25 08:00 01/25/25 08:00 01/23/25 22:11 FiO2 0.6 01/23/25 15:47 Oxygen Flow Rate (L/min) 1 Oxygen Delivery Method Room Air Weight: 165 lb 5.547 oz Body Mass Index (BMI) 37.0 Intake & Output: Intake and Output for Last 24 Hours 01/23/25 01/24/25 01/25/25 23:59 23:59 23:59 Intake Total 110 / 110 1255 / 1255 900 / 900 Output Total 600 / 600 Balance -490 / -490 1255 / 1255 900 / 900 Lab / Micro Data 01/24/25 05:03 01/24/25 05:03 Physical Exam Narrative Dressing?CDI. Neurologic evaluation of lower extremity shows 5 x 5 power in all muscles except for left hip flexion which is painful. Abdomen is soft. Assessment & Plan Assessment/Plan (1) Status post lumbar spinal fusion: PLAN: Plan Postop day 2 status post L3-5 fusion with cement augmentation. X-rays done. Reviewed. Look good. Passed flatus. Tolerating solid diet. Walked with PT yesterday. Will confirm no PT needs at discharge. Discharge today to home and follow-up in clinic in 2 weeks. No lifting bending twisting.
--- NOTE | 2025-01-25 10:53 | CASEMGMT ---
Spoke with therapy and pt may return home with no therapy needed. Dr. Chandra updated. Pt with dc order in.
[2025-01-25] MEDS: Ondansetron ODT 4 MG Tablet PO (13:35)
[2025-01-25 14:15] VITALS: BP 166/57; PULSE 89; RESP 18; TEMP 37.4; O2SAT 92
== END 2025-01-25 15:35 | disposition home or self-care (01) | DRG 428 ==
LOC: MS3 17:03
PROVIDERS: Student in an Organized Health Care Education/Training Program; Admitting Provider Orthopaedic Surgery Orthopaedic Surgery of the Spine; PCP Family Medicine; Referring Provider Orthopaedic Surgery Orthopaedic Surgery of the Spine; Visit Provider Orthopaedic Surgery Orthopaedic Surgery of the Spine
PROC: 0SG10A0 Fusion of 2 or more Lumbar Vertebral Joints with Interbody Fusion Device, Anterior Approach, Anterior Column, Open Approach (ICD-10-PCS; principal; 2025-01-23 10:45)
DX: M43.16 Spondylolisthesis, lumbar region (principal); E88.819 Insulin resistance, unspecified; I10 Essential (primary) hypertension; F32.A Depression, unspecified; E03.9 Hypothyroidism, unspecified; J45.909 Unspecified asthma, uncomplicated; E66.9 Obesity, unspecified; M41.56 Other secondary scoliosis, lumbar region; M48.062 Spinal stenosis, lumbar region with neurogenic claudication; I25.2 Old myocardial infarction; E78.00 Pure hypercholesterolemia, unspecified; M71.38 Other bursal cyst, other site; F41.9 Anxiety disorder, unspecified; K21.9 Gastro-esophageal reflux disease without esophagitis; M51.360 Other intervertebral disc degeneration, lumbar region with discogenic back pain only; M85.88 Other specified disorders of bone density and structure, other site; G89.29 Other chronic pain; R26.89 Other abnormalities of gait and mobility; Z68.37 Body mass index [BMI] 37.0-37.9, adult; Z79.51 Long term (current) use of inhaled steroids; Z79.890 Hormone replacement therapy; Z79.899 Other long term (current) drug therapy
CPT/HCPCS: 36415; 72100; 76000; 80048; 85027; 94640; 94668; 97162; 97166; 97535; C1713; J2405; J3475

== ENCOUNTER 2025-02-05 05:15 | Inpatient (IN) | payer MEDICARE, SELFPAY ==
[2025-02-05] VITALS (8 sets, daily range): BP systolic 141–170; BP diastolic 82–90; PULSE 72–92; RESP 16–18; TEMP 36.7–37.1; O2SAT 95–98; BMI 36.0
--- OUTSIDE RECORDS SUMMARY | 2025-02-05 06:28 | XMS RPT_ITS | CCD ---
Author Organization [facility] CliniSyms Care Team Providers Care Collator Name Role Phone Cliff DAVILA, Dr. Trejo Primary Care Provider Lauryn DAVILA, Dr. Zamudio Attending Provider Lauryn DAVILA, Dr. Zamudio Referring Provider Cliff DAVILA, Dr. Trejo Referring Provider [phone] Prateek DAVILA, Dr. New Attending Provider Coni DAVILA, Dr. Donovan Attending Provider Cliff DAVILA, Dr. Trejo Attending Provider Prateek DAVILA, Dr. New Other Provider Prateek DAVILA, Dr. New Admit Provider Prateek DAVILA, Dr. New Referring Provider [phone] Chandra, Shaq Referring Unavailable Chandra, Shaq Admitting Unavailable Chandra, Shaq Attending Unavailable Jeramy, Rachell Consulting Unavailable Cliff, Christophruben Primary Care Unavailable Glenna Waller Consulting Unavailable Cliff, Christopher Primary Care Unavailable Neil Coronado Attending Unavailable Cliff, Christopher Referring Unavailable Chandra, Shaq Consulting Unavailable Cliff Christopher Attending Unavailable Ranjody, Christopher Referring Unavailable Cliff, Christopher Primary Care Unavailable Neil Coronado Primary Care Unavailable Robb Combs Attending Unavailable Robb Combs Referring Unavailable Cliff, Christopher Primary Care Unavailable Ranjody, Christopher Attending Unavailable Ranney, Christopher Referring Unavailable Chandra, Shaq Consulting Unavailable Chandra, Shaq Referring Unavailable Chandra, Shaq Admitting Unavailable Chandra, Shaq Attending Unavailable Cliff, Christopher Primary Care Unavailable Chandra, Shaq Attending Unavailable Chandra, Shaq Admitting Unavailable Chandra, Shaq Referring Unavailable Ranney, Christopher Primary Care Unavailable Rachell Deshpande Consulting Unavailable Glenna Waller Consulting Unavailable Chandra, Shaq Consulting [facility]available Zion Newberry Attending Unavailable Shaq Chandra Attending Unavailable [facility] Unavailable [facility], Christopher Referring Unavailable Shaq Chandra Attending Unavailable [facility], Christopher Referring Unavailable [facility] Unavailable [facility], [facility] Referring Unavailable [facility] Primary Care Unavailable Tamara Pickering Attending Unavailable Glenna Waller Attending Unavailable Rachell Deshpande Attending Unavailable Rachell Deshpande Consulting Unavailable Allergies Allergy Classification Reported Allergen(s) Allergy Type Date of Onset Reaction(s) Facility (8 sources) bismuth subsalicylate Drug Allergy 1 Nausea/Vom/Diar [facility] (8 sources) Codeine Drug Allergy 1 Rash [facility] (9 sources) diphenhydrAMINE; Translations: [diphenhydramine HCl] Drug Allergy 1 Nausea/Vom/Diar [facility] (8 sources) Simvastatin Drug Allergy 1 Nausea [facility] (1 source) ubidecarenone Drug Allergy 5 Nausea/Vom/Diar [facility] (1 source) bismuth subsalicylate Drug Allergy 5 [facility] (1 source) Codeine Drug Allergy 5 [facility] (1 source) Simvastatin Drug Allergy 5 [facility] (1 source) ubidecarenone Drug allergy (disorder) 5 [facility] Repository Medications Current Medications Medication Drug Class(es) Dates Sig (Normalized) Sig (Original) Albuterol Sulfate (8 sources) beta2-Adrenergic Agonist Start: 11-04-2016 Albuterol Sulfate Active 2 PUFF IH NEEDED November 04, 2016 3:31pm Start: 11-04-2016 Albuterol Sulf ate 6.7 GM HFA aerosol inhaler Active 2 NMA IH NEEDED as needed for Asthma November 04, 2016 1:00am Start: 11-04-2016 Albuterol Sulf ate Active 2 PUFF IH NEEDED November 04, 2016 12:00am Start: 11-04-2016 Albuterol Sulf ate Active 2 PUFF IH NEEDED November 04, 2016 1:00am atorvastatin 20 mg oral tablet (8 sources) HMG-CoA Reductase Inhibitor Start: 11-04-2016 take 1 tablet by mouth at bedtime Atorvastatin 20 MG tablet Active 20 mg PO AT BEDTIME November 04, 2016 1:00am calcium carbonate 1250 mg / cholecalciferol 0.01 mg chewable tablet (8 sources) Vitamin D Start: 11-08-2016 Calcium Carbonate-Vitamin D3 1 EACH tablet,chewable Active 2 {tbl} PO AT BEDTIME November 08, 2016 1:00am Start: 11-08-2016 take 2 tablets by mo uth at bedtime Calcium Carbonate-Vitamin D3 Active 2 TABLET PO AT BEDTIME November 08, 2016 12:00am cholecalciferol 0.05 mg oral capsule (8 sources) Vitamin D Start: 11-04-2016 take 3 capsules by mouth once daily Cholecalciferol (Vitamin D3) 2,000 UNIT capsule Active 6000 U PO DAILY November 04, 2016 1:00am Start: 11-04-2016 take 6000 [IU] by mo uth once daily Cholecalciferol (Vitamin D3) Active 6000 UNIT PO DAILY November 04, 2016 12:00am citalopram 40 mg oral tablet (8 sources) Serotonin Reuptake Inhibitor Start: 11-04-2016 Citalopram 40 MG tablet Active 20 mg PO DAILY November 04, 2016 1:00am Start: 11-04-2016 take 20 mg by mouth once daily Citalopram Active 20 MG PO DAILY November 04, 2016 12:00am famotidine 40 mg oral tablet (16 sources) Histamine-2 Receptor Antagonist Start: 04-24-2021 take 1 tablet by mouth once daily Famotidine 40 mg tablet Active 40 mg PO DAILY April 24, 2021 12:00am Start: 03-16-2021 End: 03-17-2021 take 1 tablet by mouth at bedtime Famotidine 40 mg tablet Discontinued 40 mg PO AT BEDTIME March 16, 2021 12:00am March 17, 2021 5:09pm Fish Oil-Dha-Epa (6 sources) Start: 11-04-2016 Fish Oil-Dha-E pa Active 1 EACH PO DAILY November 04, 2016 3:31pm Start: 11-04-2016 Fish Oil-Dha-E pa Active 1 EACH PO DAILY November 04, 2016 12:00am Start: 11-04-2016 Fish Oil-Dha-E pa Active 1 EACH PO DAILY November 04, 2016 1:00am Fish Oil-Dha-Epa 1 EACH capsule (2 sources) Start: 11-04-2016 take 1 capsule by mouth once daily Fish Oil-Dha-Epa 1 EACH capsule Active 1 NMA PO DAILY November 04, 2016 1:00am Fluticasone Propion-Salmeterol (1 source) Corticosteroid, beta2-Adrenergic Agonist Start: 01-22-2025 Fluticasone Propion-Salmeterol (Wixela Inhub) 250-50 mcg/dose blister with device Active 1 NMA INHALATION TWICE A DAY January 22, 2025 12:00am levothyroxine sodium 0.112 mg oral tablet (8 sources) l-Thyroxine Start: 11-04-2016 take 1 tablet by mouth once daily Levothyroxine 112 MCG tablet Active 112 ug PO DAILY November 04, 2016 1:00am loratadine 10 mg oral tablet (1 source) Start: 01-22-2025 take 1 tablet by mouth once daily Loratadine (Allergy Relief (Loratadine)) 10 mg tablet Active 10 mg PO DAILY January 22, 2025 12:00am losartan potassium 100 mg oral tablet (16 sources) Angiotensin 2 Receptor Ashwin Start: 03-17-2021 take 1 tablet by mouth once daily Losartan (Cozaar) 100 mg tablet Active 100 mg PO DAILY March 17, 2021 12:00am Start: 03-16-2021 End: 03-17-2021 take 1 tablet by mouth once daily Losartan 50 mg tablet Discontinued 50 mg PO DAILY March 16, 2021 12:00am March 17, 2021 5:09pm melatonin 5 mg / vitamin b6 1 mg oral tablet (8 sources) Start: 11-04-2016 take 1 tablet by mouth at bedtime Melatonin-Pyridoxine (Vit B6) 1 EACH tablet Active 1 NMA PO AT BEDTIME November 04, 2016 1:00am Start: 11-04-2016 Melatonin-Pyri doxine (Vit B6) Active 1 EACH PO AT BEDTIME November 04, 2016 12:00am Mv,Ca,Min-Folic Acid-Vit K1 (6 sources) Start: 11-04-2016 Mv,Ca,Min-Foli c Acid-Vit K1 Active 1 EACH PO DAILY November 04, 2016 3:31pm Start: 11-04-2016 Mv,Ca,Min-Foli c Acid-Vit K1 Active 1 EACH PO DAILY November 04, 2016 12:00am Start: 11-04-2016 Mv,Ca,Min-Foli c Acid-Vit K1 Active 1 EACH PO DAILY November 04, 2016 1:00am Mv,Ca,Min-Folic Acid-Vit K1 1 EACH tablet (2 sources) Start: 11-04-2016 take 1 tablet by mouth once daily Mv,Ca,Min-Folic Acid-Vit K1 1 EACH tablet Active 1 NMA PO DAILY November 04, 2016 1:00am 24 hr venlafaxine 75 mg extended release oral capsule (9 sources) Serotonin and Norepinephrine Reuptake Inhibitor Start: 01-22-2025 take 1 capsule by mouth once daily Venlafaxine 75 mg capsule,extended release 24hr Active 150 mg PO DAILY January 22, 2025 12:00am Start: 11-04-2016 End: 01-22-2025 take 1 tablet by mouth every twenty-four hours at bedtime Venlafaxine 37.5 MG tablet extended release 24hr Discontinued 37.5 mg PO AT BEDTIME November 04, 2016 1:00am January 22, 2025 10:17am vitamin e 180 mg oral capsule (8 sources) Start: 11-04-2016 take 1 capsule by mouth once daily Vitamin E 400 UNIT capsule Active 400 U PO DAILY November 04, 2016 1:00am Completed/Discontinued Medications Medication Drug Class(es) Dates Sig (Normalized) Sig (Original) Al Hyd-Mg Tr-Alg Ac-Sod Bicarb 1 EACH tablet,chewable (2 sources) Start: 11-04-2016 End: 03-26-2019 take 1 tablet by mouth once daily Al Hyd-Mg Tr-Alg Ac-Sod Bicarb 1 EACH tablet,chewable Discontinued 2 NMA PO DAILY November 04, 2016 1:00am March 26, 2019 2:04pm aluminum hydroxide 80 mg / magnesium trisilicate 14.2 mg chewable tablet (6 sources) Start: 11-04-2016 End: 03-26-2019 Al Hyd-Mg Tr-Alg Ac-Sod Bicarb Discontinued 2 EACH PO DAILY November 04, 2016 12:00am March 26, 2019 1:04pm ascorbic acid 500 mg oral tablet (8 sources) Vitamin C Start: 11-04-2016 End: 01-22-2025 take 1 tablet by mouth once daily Ascorbic Acid (Vitamin C) 500 MG tablet Discontinued 500 mg PO DAILY@0800 November 04, 2016 1:00am January 22, 2025 10:19am 30 actuat fluticasone furoate 0.1 mg/actuat / vilanterol 0.025 mg/actuat dry powder inhaler (8 sources) Corticosteroid, beta2-Adrenergic Agonist Start: 11-04-2016 End: 01-22-2025 take 1 dose by inhalation once daily Fluticasone Furoate-Vilanterol 1 EACH blister with device Discontinued 1 NMA IH DAILY November 04, 2016 1:00am January 22, 2025 10:20am Start: 11-04-2016 take 1 puff(s) by in halation once daily Fluticasone Furoate-Vilanterol Active 1 PUFF IH DAILY November 04, 2016 12:00am gabapentin 100 mg oral capsule (8 sources) Anti-epileptic Agent Start: 03-16-2021 End: 01-22-2025 take 1 capsule by mouth three times daily Gabapentin 100 mg capsule Discontinued 100 mg PO THREE TIMES A DAY March 16, 2021 12:00am January 22, 2025 10:21am indomethacin 25 mg oral capsule (8 sources) Nonsteroidal Anti-inflammatory Drug Start: 03-17-2021 End: 11-29-2024 take 1 capsule by mouth three times daily at mealtime Indomethacin 25 mg Capsule Discontinued 25 mg PO 3 TIMES DAILY WITH MEALS 42 March 17, 2021 12:00am November 29, 2024 1:58pm meloxicam 7.5 mg oral tablet (8 sources) Nonsteroidal Anti-inflammatory Drug Start: 11-04-2016 End: 03-17-2021 take 1 tablet by mouth once daily Meloxicam 7.5 MG tablet Discontinued 7.5 mg PO DAILY November 04, 2016 1:00am March 17, 2021 5:09pm nystatin 100 unt/mg topical powder (8 sources) Polyene Antifungal Start: 03-17-2021 End: 01-22-2025 Nystatin 100,000 unit/gram powder Discontinued 1 NMA TOPICAL TWICE A DAY March 17, 2021 12:00am January 22, 2025 10:20am Applied to right groin area twice a day until redness resolves Start: 03-17-2021 Nystatin Activ e 1 APPLIC TOPICAL TWICE A DAY March 16, 2021 11:00pm Applied to right groin area twice a day until redness resolves omeprazole 40 mg delayed release oral capsule (8 sources) Proton Pump Inhibitor Start: 03-17-2021 End: 04-24-2021 take 1 capsule by mouth once daily Omeprazole 40 mg capsule,delayed release(DR/EC) Discontinued 40 mg PO DAILY March 17, 2021 12:00am April 24, 2021 10:45am Problems Active Problems Problem Classification Problem Date Documented Da te Episodic/Chronic Asthma (8 sources) Asthma; Translations: [Unspecified asthma, uncomplicated] 03-16-2021 Chronic Cardiac and circulatory congenital anomalies (8 sources) Patent foramen ovale; Translations: [Atrial septal defect] 04-24-2021 Chronic Coronary atherosclerosis and other heart disease (8 sources) History of non-ST segment elevation myocardial infarction; Translations: [Old myocardial infarction] Onset: 03-16-2021 04-24-2021 Chronic Diseases of white blood cells (1 source) Elevated white blood cell count, unspecified; Translations: [Elevated white blood cell count, unspecified] Onset: 01-25-2025 Chronic Disorders of lipid metabolism (8 sources) Hyperlipidemia; Translations: [Hyperlipidemia, unspecified] 04-24-2021 Chronic Essential hypertension (8 sources) Essential hypertension; Translations: [Essential (primary) hypertension] 04-24-2021 Chronic Comment on above: CONTROLLED ON MED Nausea and vomiting (8 sources) Nausea and vomiting; Translations: [Nausea with vomiting, unspecified] 03-25-2021 Episodic Nonspecific chest pain (8 sources) Chest pain; Translations: [Chest pain, unspecified] 04-24-2021 Episodic Other acquired deformities (5 sources) Scoliosis of lumbar spine; Translations: [Scoliosis, unspecified] 11-30-2024 Chronic Other acquired deformities (5 sources) Lumbar spondylolisthesis; Translations: [Spondylolisthesis, lumbar region] 11-30-2024 Episodic Other acquired deformities (2 sources) Spondylolisthesis, lumbar region; Translations: [Spondylolisthesis, lumbar region] Onset: 01-25-2025 Episodic Other bone disease and musculoskeletal deformities (5 sources) Osteopenia; Translations: [Other specified disorders of bone density and structure, unspecified site] 11-30-2024 Episodic Other connective tissue disease (5 sources) Synovial cyst of lumbar spine; Translations: [Other bursal cyst, other site] 11-30-2024 Episodic Other connective tissue disease (1 source) Arthrodesis status; Translations: [Arthrodesis status] Onset: 01-25-2025 Episodic Other gastrointestinal disorders (8 sources) Diarrhea; Translations: [Diarrhea, unspecified] 03-25-2021 Episodic Other nervous system disorders (5 sources) Impairment of balance; Translations: [Other abnormalities of gait and mobility] 11-30-2024 Episodic Unclassified (1 source) Low back pain, unspecified; Translations: [Low back pain, unspecified] Onset: 11-29-2024 Past or Other Problems Problem Classification Problem Date Documented Da te Episodic/Chronic Other screening for suspected conditions (not mental disorders or infectious disease) (10 sources) Patient encounter status; Translations: [Encounter for screening for malignant neoplasm of colon] Onset: 05-30-2024 03-16-2021 Episodic Karen-; endo-; and myocarditis; cardiomyopathy (except that caused by tuberculosis or sexually transmitted disease) (8 sources) Pericarditis; Translations: [Disease of pericardium, unspecified] Onset: 03-16-2021 04-24-2021 Episodic Spondylosis; intervertebral disc disorders; other back problems (14 sources) Degenerative lumbar spinal stenosis; Translations: [Spinal stenosis, lumbar region without neurogenic claudication] Onset: 10-31-2024 04-24-2021 Episodic Comment on above: INHALERS USED Results Test Name Value Interpretation Reference Range Facility Basic Metabolic Profile (BMP )on 01-24-2025 BUN/CRE 14.9 RATIO Normal 06-24 [facility] Comment on above: Performed By: #### L 100.0500, L500.2500 ####[facility] [address] [place], [address] Calcium [Mass/Vol] 8.5 mg/dL Normal 7.6-11.0 [facility] Comment on above: Performed By: #### L 100.0500, L500.2500 ####[facility] [address] [place], [address] Chloride [Moles/Vol] 103 mmol/L Normal 98-108 [facility] Comment on above: Performed By: #### L 100.0500, L500.2500 ####[facility] [address] [place], [address] CO2 [Moles/Vol] 21.2 mmol/L Normal 21.0-32.0 [facility] Comment on above: Performed By: #### L 100.0500, L500.2500 ####[facility] [address] [place], [address] Creatinine [Mass/Vol] 0.95 mg/dL Normal 0.70-1.20 [facility] Comment on above: Performed By: #### L 100.0500, L500.2500 ####[facility] [address] [place], [address] ECRCL 46.28 ml/min Low 50-250 [facility] Comment on above: Performed By: #### L 100.0500, L500.2500 ####[facility] [address] [place], [address] GAP 12 Normal 5-15 [facility] Comment on above: Performed By: #### L 100.0500, L500.2500 ####[facility] [address] [place], [address] GFR/1.73 sq M.predicted among non-blacks MDRD (S/P/Bld) [Vol rate/Area] 63 mL/min/{1.73_m2} Normal >60 [facility] Comment on above: Result Comment: mL/m in/1.73m2 CKD-EPI Creatinine Equation (2020) Performed By: #### L 100.0500, L500.2500 ####[facility] [address] [place], [address] Glucose [Mass/Vol] 142 mg/dL High 70-99 [facility] Comment on above: Performed By: #### L 100.0500, L500.2500 ####[facility] [address] [place], [address] Potassium [Moles/Vol] 4.2 mmol/L Normal 3.3-5.1 [facility] Comment on above: Performed By: #### L 100.0500, L500.2500 ####[facility] [address] [place], [address] Sodium [Moles/Vol] 136 mmol/L Normal 133-145 [facility] Comment on above: Performed By: #### L 100.0500, L500.2500 ####[facility] [address] [place], [address] Urea nitrogen [Mass/Vol] 14 mg/dL Normal 4-19 [facility] Comment on above: Performed By: #### L 100.0500, L500.2500 ####[facility] [address] [place], [address] CBC-Complete Blood Cnt No Di ffon 01-24-2025 Erythrocyte distribution width (RBC) [Ratio] 13.5 % Normal 11.6-14.6 [facility] Comment on above: Performed By: #### L 100.0500, L500.2500 ####[facility] [address] [place], [address] Hematocrit (Bld) [Volume fraction] 33.8 % Low 37-47 [facility] Comment on above: Performed By: #### L 100.0500, L500.2500 ####[facility] [address] [place], [address] Hemoglobin (Bld) [Mass/Vol] 11.0 g/dL Low 12.0-15.0 [facility] Comment on above: Performed By: #### L 100.0500, L500.2500 ####[facility] [address] [place], [address] MCH (RBC) [Entitic mass] 28.1 pg Normal 27.0-32.0 [facility] Comment on above: Performed By: #### L 100.0500, L500.2500 ####[facility] [address] [place], [address] MCHC (RBC) [Mass/Vol] 32.5 g/dL Normal 32-36 [facility] Comment on above: Performed By: #### L 100.0500, L500.2500 ####[facility] [address] [place], [address] MCV (RBC) [Entitic vol] 86.4 fL Normal 81-99 [facility] Comment on above: Performed By: #### L 100.0500, L500.2500 ####[facility] [address] [place], [address] Platelet mean volume (Bld) [Entitic vol] 9.5 fL Normal 6.2-12.0 [facility] Comment on above: Performed By: #### L 100.0500, L500.2500 ####[facility] [address] [place], [address] Platelets (Bld) [#/Vol] 246 10*3/uL Normal 150-450 [facility] Comment on above: Performed By: #### L 100.0500, L500.2500 ####[facility] [address] [place], [address] RBC (Bld) [#/Vol] 3.91 10*6/uL Low 4.2-5.4 [facility] Comment on above: Performed By: #### L 100.0500, L500.2500 ####[facility] [address] [place], [address] RDW SD 42.6 fl Normal 35.1-43.9 [facility] Comment on above: Performed By: #### L 100.0500, L500.2500 ####[facility] [address] [place], [address] WBC (Bld) [#/Vol] 16.7 10*3/uL High 4.4-11.0 [facility] Comment on above: Performed By: #### L 100.0500, L500.2500 ####[facility] [address] [place], [address] Lumbar Spine 2 or 3 Viewson 01-24-2025 Lumbar Spine 2 or 3 Views [facility] Imaging Services [address] [facility] [place] [address] Lumbar Spine 2 or 3 Views MR#: [id number] Acct: [id number] Name: EVELIN SANDHU Rep #: [id number] : 1950 F 74 From: Yo Park MD PCP: Dr. Neil Coronado MD Status: ADM IN Study: Lumbar Spine 2 or 3 Views Date of Exam: Exam# [id number] Ordering Dr: Tamara Pickering PROCEDURE: LUMBAR SPINE 2 OR 3 VIEWS 01/24/2025 REASON FOR EXAM: S/P LUMBAR FUSION TECHNIQUE: 2 view(s) of the lumbar spine FINDINGS: Patient is mildly rotated to the right. Status post intervertebral disc spacers with left lateral anchor screws and bilateral posterior fusion L3 through L5 appears intact and anatomic with associated methylmethacrylate within the vertebral bodies associated with the transpedicular screws. Suggestion of L4-5 greater than L3-4 possible extrusion of methylmethacrylate at the disc space. L5-S1 spondylosis/discogeni c change. Osteopenia. Aortic atherosclerotic calcification. RAD/Lumbar Spine 2 or 3 Views IMPRESSION: Patient is mildly rotated to the right. Status post intervertebral disc spacers with left lateral anchor screws and bilateral posterior fusion L3 through L5 appears intact and anatomic with associated methylmethacrylate within the vertebral bodies associated with the transpedicular screws. Suggestion of L4-5 greater than L3-4 possible extrusion of methylmethacrylate at the disc space. L5-S1 spondylosis/discogeni c change. Osteopenia. Reading Location: [facility] CC: JEANNINE Ch; Dr. Neil Coronado MD Labor Gang Supervisor: Signed [facility] Lumbar Spine 2 or 3 Viewson 01-23-2025 Lumbar Spine 2 or 3 Views [facility] Imaging Services [address] [place] [address] Lumbar Spine 2 or 3 Views MR#: [id number] Acct: [id number] Name: EVELIN SANDHU Rep #: [id number] : 1950 F 74 From: Yo Park MD PCP: Dr. Neil Coronado MD Status: ADM IN Study: Lumbar Spine 2 or 3 Views Date of Exam: Exam# [id number] Ordering Dr: Shaq Chandra MD PROCEDURE: LUMBAR SPINE 2 OR 3 VIEWS 01/23/2025 REASON FOR EXAM: 360 LUMBAR FUSION L3-4 L4-5 TECHNIQUE: Fluoroscopy with 17 spot images lumbar spine FINDINGS: Fluoroscopy time 134.3 seconds Cumulative dose 73.06 mGy Spot images with intervertebral disc spacers L3 through L5 with lateral anchor screw and bilateral posterior fusion with apparent methylmethacrylate associated with the bilateral transpedicular screws. Please see operative report for further detail. RAD/Lumbar Spine 2 or 3 Views IMPRESSION: Fluoroscopy as above. Reading Location: [facility] CC: Dr. Shaq Chandra MD; Dr. Neil Coronado MD Labor Gang Supervisor: Signed [facility] MR/POSTOP.ANEon 01-23-2025 MR/POSTOP.[facility] Medical Records Department [address] [place] [address] Anesthesia Postop Eval I 01/23/25 1546 MR#: [id number] Acct: [id number] Name: EVELIN SANDHU Rep #: [id number] : 1950 74 From: Bruce Reid CRNA PCP: Dr. Neil Coronado MD Status:ADM IN Y Race: C Location: [facility] AC-TBA-1 Anesthesia: Postop Eval I Current Vital Signs Temperature: 97.4 F Pulse Rate: 78 Blood Pressure: 116/76 Respiratory Rate: 16 Pulse Ox: 99 Oxygen Delivery Method: Simple Mask Oxygen Flow Rate (L/min): 8 Fraction of Inspired Oxygen (FIO2): 0.6 Assessment Airway patent: Yes Spontaneous unlabored respirations: Yes Mental status: Awake and Calm nausea: No Vomiting: No Anesthesia Complication: No Fluid Hydration Crystalloid volume administer (ml): 1,700 Total IV fluid infused: 1,700 Progress Note Anesthesia document: Postop Eval 1 completed: Yes 01/23/25 1547 Date Bruce Reid DEAN OF MEN Cosigner Signature: Date CC: Signed Normal [facility] [id number] 01-23-2025 [facility] Medical Records Department [address] [place] [address] Anesthesia Postop Eval II 01/23/25 1624 MR#: [id number] Acct: [id number] Name: EVELIN SANDHU Rep #: [id number] : 1950 74 From: aDryn Winter MD PCP: Dr. Neil Coronado MD Status:ADM IN Y Race: C Location: [facility] Anesthesia Postop Eval I Sum Postop Eval Completion status Anesthesia document: Postop Eval 1 completed: Yes Anesthesia Postop Eval I Summary Anesthesia Postop Eval I Summary: Anesthesia Postop Eval I: Assessment Summary Airway patent Yes 01/23/25 15:47 DE[facility] OF MEN.NFOR Spontaneous unlabored Yes 01/23/25 15:47 [facility] respirations Mental status Awake,Calm 01/23/25 15:47 [facility]NFOR nausea No 01/23/25 15:47 [facility] Vomiting No 01/23/25 15:47 [facility].NFOR Anesthesia Postop Eval I: Fluid Summary Crystalloid volume administer 1,700 01/23/25 15:47 DE[facility].NFOR (ml) Colloids volume administered ( ml) Blood Product volume administered (ml) Total IV fluid infused 1,700 01/23/25 15:47 [facility].NFOR Anesthesia Postop Eval I: Summary Notes Anesthesia Complication No 01/23/25 15:47 DE[facility] M[facility].NFOR Anesthesia Complication Comment: Post-operative progress note Anesthesia: Postop Eval II Evaluation Mental status: Awake Pain Level: 2 nausea: No Vomiting: No 01/23/25 1624 Date Daryn Moy Germain Signature: Date CC: Signed Normal [facility] Operative Reporton 5 Operative Report [facility] Medical Records Department [address] [place] [address] Operative Report 01/23/25 1547 MR#: [id number] Acct: [id number] Name: EVELIN SANDHU Rep #: [id number] : 1950 74 From: Shaq Chandra MD PCP: Dr. Neil Coronado MD Status:ADM IN Location: [place] [address] Procedures Musculoskeletal 20xxx-29xxx: Other Procedure See Report Operative Report (Standard) Operative Information Date of Procedure: 01/23/25 Pre-Operative Diagnosis: L4-5 spondylolisthesis, L3-5 disc degeneration, stenosis with neurogenic claudication Post-Operative Diagnosis: same Surgery/Procedure Performed: L3-5 posterior spinal instrumented fusion insulation professional: Yes Health Care / Medical Job Titles: Tamara Pickering Tasks completed by list of first job ideas: Closing, Implanting device, Hemostasis: Electrocautery and Retracting Type of Anesthesia: General RN Documented Start/Stop Times: Operation Date: 01/23/25 11:15 Case Time Into Pre-Op 01/23/25 08:34 Out of Pre-Op 01/23/25 11:01 Anesthesia Start 01/23/25 11:03 Into Room 01/23/25 11:03 Procedure Start 01/23/25 11:40 Procedure End 01/23/25 15:26 Anesthesia End 01/23/25 15:37 Out of Room 01/23/25 15:37 Procedure Start Time: 11:40 Procedure Stop Time: 15:26 Select all DRAINS/GRAFTS/IMPLANT S that apply: Graft Graft details: Allograft cancellous bone chips and Implanted device Implanted device details: DePuy Viper prime pedicle screw instrumentation Estimated Blood Loss: 150 cc Specimen collected: No Description of surgery: Preoperative diagnosis: L4-5 spondylolisthesis, L3-5 disc degeneration, stenosis with neurogenic claudication Postoperative diagnosis: Same Name of procedures: L3-5 posterior percutaneous pedicle screw instrumented fusion, cement augmentation, prone: ??? L3-4 posterior spinal fusion 39251 ??? L3-5 posterior pedicle screw instrumentation 98858 ??? L4-5 posterior fusion 65513/51 ??? Allograft cancellous chips Attending Surgeon: Dr. Shaq Chandra Estimated blood loss: 150 mL (total for entire case) Anesthesia: General Complications: None Description of procedure: After the anterior procedure was complete, the patient was then turned supine. The patient was then transferred to Felipe table in prone position. Back was prepped and draped in usual fashion. C-arm AP view was then taken. C-arm was positioned in a way that L3 was centralized and superior endplate of was parallel to the beam. Spinous process was centered between the pedicles. Midline was marked with skin marker and lateral borders of the pedicles were also marked. Skin marker was also utilized to roby transversely across the middle of the pedicles at L3. 2 transverse paramedian incisions of 1 inch were placed. The fascia was incised vertically. Finger dissection was utilized to palpate the transverse process and facet joint. Viper Prime screws with towers were inserted and docked onto the transverse processes. This was then slowly moved medially to reach the superior articular process of L3. This was then confirmed on C-arm and then a mallet was utilized to drive the trocar into the pedicle going up to the medial wall of the pedicle on AP view. This was performed both sides. C-arm lateral view confirmed that the tip of the trocar was in the vertebral body, and the screw was advanced into the pedicle and vertebral body. This was repeated similarly at L4 and L5 bilaterally. Screw sizes were 7 x 50 mm at L3, L4 and L5 on both sides. Screw purchase was poor and decision was made to augment with cement. Cement was passed through the cannula and fenestrations of the screw under C-arm lateral view control. AP view was finally taken to make sure there was no worrisome extravasation. 65 mm precontoured titanium 5.5 mm lordotic adin on the right and 70 mm on the left were then passed through the screw extensions and reduced down to the screws with the help of DepDescribeMeer instrumentation system on both sides. AP and lateral view of the C-arm showed good positioning of the screws and cages. Final tightening with the torque screwdriver was then completed. [place] was utilized to roughen the facet joint at L3-4 L4-5 on the right side. Cancellous allograft bone chips mixed with bone marrow aspirate were then placed over this decorticated area. Hemostasis was achieved. Closure was done in layers with 0 Vicryls for the fascia, 2-0 Vicryls for the subcutaneous tissue, and Monocryl for the skin. Dermabond was applied. Dressings were applied covered with Tegaderm. The patient was then turned supine onto a hospital bed. The patient was extubated and taken to PACU in stable condition. The patient tolerated the procedure well and no complications occurred. Depuy [place] cage Viper Prime minimally invasive pedicle screw instrumentation system was utilized in this c (more content not included)... Normal [facility] Operative Report [facility] Medical Records Department [address] [place] [address] Operative Report 01/23/25 1537 MR#: [id number] Acct: [id number] Name: EVELIN SANDHU Rep #: [id number] : 1950 74 From: Shaq Chandra MD PCP: Dr. 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: Yes Health Care / Medical Job Titles: Tamara Pickering Tasks completed by list of first job ideas: Closing, Removing tissue, Hemostasis: Electrocautery and Retracting Type of Anesthesia: General RN Documented Start/Stop Times: Operation Date: 01/23/25 11:15 Case Time Into Pre-Op 01/23/25 08:34 Out of Pre-Op 01/23/25 11:01 Anesthesia Start 01/23/25 11:03 Into Room 01/23/25 11:03 Procedure Start 01/23/25 11:40 Procedure End 01/23/25 15:26 Anesthesia End 01/23/25 15:37 Out of Room 01/23/25 15:37 Procedure Start Time: 11:40 Procedure Stop Time: 15:26 Select all DRAINS/GRAFTS/IMPLANT S that apply: Graft Graft details: Medtronic infuse BMP sponge, allograft cancellous chips and Implanted device Implanted device details: DePuy cougar lateral lumbar interbody cage???peek Estimated Blood Loss: 150 cc Specimen collected: No Description of surgery: Preoperative diagnosis: L4-5 spondylolisthesis, L3-5 disc degeneration, stenosis with neurogenic claudication Postoperative diagnosis: Same Name of procedures L3-5 oblique lumbar interbody fusion (OLIF), minimally invasive left sided approach, lateral decubitus: ??? L3-4 anterolateral spinal fusion 67769 ??? L4-5 anterolateral fusion 15657/51 ??? L3-4 insertion of cage 77067 ??? L4-5 insertion of cage 09033/51 ??? Allograft cancellous chips with Medtronic infuse BMP sponge 75592 Attending Surgeon: Dr. Shaq Chandra Estimated blood loss: 150 mL Anesthesia: General Complications: None Indications: Patient is a 74-year-old pleasant lady who has had a long history of low back pain and bilateral lower extremity radiation, difficulty walking distances. Xrays MRI revealed L4-5 spondylolisthesis, L3-5 disc degeneration with stenosis, facet synovial cyst at L4-5. After undergoing a prolonged period of nonoperative treatment, the patient elected to undergo surgical decompression fusion. All surgical options were discussed with the patient including anterior and posterior approaches. All risks and benefits associated with the procedure were explained to the patient. The risks include but are not limited to infection, bleeding, injury to nerves and vessels including major vessels like IVC and aorta, persistent paresthesia, persistent pain, dural tear, need for further procedures, adjacent segment degeneration, pseudoarthrosis, hardware failure, retrograde ejaculation, paralytic ileus, etc. Procedure: The patient was identified in the preoperative holding suite using Unique patient identifiers. Skin was marked, consent was reviewed, and all questions were answered. The patient was then brought back to the operative room. A surgical timeout was performed to make sure correct procedure was being done on the correct patient and all operative room staff were on the same page. General endotracheal anesthesia was then given to the patient. Burnett catheter was inserted. The patient was then carefully positioned in right lateral decubitus position with the left side up on a regular OR table. Axillary roll was placed and all bony prominences were well- padded. Hip positioners were placed in the posterior buttocks and anterior sternal area. The surgical area was prepped and draped in usual fashion. Preoperative antibiotic was injected IV as preoperative antibiotic. A final timeout was then again done just before starting the procedure. A 2 inch incision oblique was taken in the left lower quadrant of the abdomen 2 fingerbreadths away from the iliac crest and the lower ribs. Sharp dissection with Bovie was carried out up to the fascia covering the external oblique. The external oblique, internal oblique and transversus abdominis muscles were split along the muscle fibers and retroperitoneal space was entered. Sponge sticks were utilized to move the bowel and peritoneum kba-jy-rjx-way and psoas muscle was exposed staying within the retroperitoneal plane. Game Closureframe retractor system was positioned and the retractor blade was applied onto the psoas. The interval between psoas and midline structures was developed and appropriate retractors were placed. Once adequate interval was cleared, a disc space was ident (more content not included)... Normal [facility] MR/PAT.ANEon 01-22-2025 MR/PAT.ANE [facility] Medical Records Department [address] [place] [address] PAT - Anesthesia 01/22/25 1105 MR#: [id number] Acct: [id number] Name: EVELIN SANDHU Rep #: [id number] : 1950 74 From: Daryn Winter MD PCP: Dr. Neil Coronado MD Status:PRE IN Y Race: C Location: [facility] Pre-Assessment Diagnosis/Proposed Procedure Planned Operative Procedure(s): 360 LUMBAR FUSION L3-L4 L4-L5 POSSIBLE CEMENT AUGMENTATION Anesthesia History Anesthesia History - criminal attorney: Anesthesia History - criminal attorney Hx Hospitalization No 01/22/25 10:33 Any Problems With Anesthesia Yes: QUIT BREATHING DURING 01/22/25 10:33 HYSTERECTOMY/STATES HAD TOO MUCH ANESTHESIA Cholinesterase deficiency No 01/22/25 10:33 You/Your Family Experience Yes: STATES MOTHER WENT INTO 01/22/25 10:33 fever (hyperthermia) with SHOCK DURING SURGERY Relationship PTS MOTHER 01/22/25 10:33 Recent Exposure to Contagious No 11/04/16 14:38 Disease Does patient have nerve No 01/22/25 10:33 stimulator Patient instructed to have device shut off --Does patient have Pacemaker or ICD? When Was Last Pacemaker Check QUESTION #4 FULL TEXT: You/Your Family Experience fever (hyperthermia) with Anesthesia Last Oral Intake Last Oral intake: Last Oral Intake NPO since Meds taken in AM with sips of water? Meds patient instructed to take am of surgery PONV PONV - criminal attorney: PONV - criminal attorney Female Yes 01/22/25 10:33 HX of Motion Sickness Yes 01/22/25 10:33 HX of N/V After Surgery No 01/22/25 10:33 Non-Smoker Yes 01/22/25 10:33 Duration of Surgery greater No 01/22/25 10:33 than 60 minutes Number of Risk Factors 3 01/22/25 10:33 PONV Score Moderate Risk 01/22/25 10:33 Height Weight Height Weight: Anesthesia: Height Weight Height 4 ft 8 in 11/29/24 13:54 Respiratory Assessment Respiratory Assessment - criminal attorney: Respiratory Tract Infection Hx - criminal attorney Hx Respiratory Tract Infection No 01/22/25 10:33 STOP Sleep Apnea STOP Sleep Apnea - criminal attorney: STOP Sleep Apnea - criminal attorney Hx Hypertension Yes: CONTROLLED ON MED 01/22/25 10:33 Hx Sleep Apnea No 01/22/25 10:33 CPAP BIPAP Do you snore loudly (louder No 01/22/25 10:33 than talking or can be heard Do you often feel tired/ No 01/22/25 10:33 fatigued/ sleepy during daytime? Has anyone observed you stop No 01/22/25 10:33 breathing during sleep? STOP Results Negative 01/22/25 10:33 QUESTION #5 FULL TEXT : Do you snore loudly (louder than talking or can be heard through closed doors)? 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 Specify any problems Hx of Preganancy in last 3 No 01/22/25 10:33 Months Nurse Filling Out Transfusion VCHRISTIN 01/22/25 10:33 Questions: Date: 01/22/25 01/22/25 10:33 Time: 10:37 01/22/25 10:33 Patient unable to answer at this time (ie. confused, unrespo /Reproductio n History /Reproductiv e History - criminal attorney: /Reproductiv e Hx- criminal attorney Hx Now Gestational Age (in weeks): EDC: Hx Hx Para Hx Section SAB Active Medications Active Medications: Current Medications Generic Name Dose Route Start Last Admin Trade Name Freq PRN Reason Stop Dose Admin Acetaminophen 1,000 mg 01/23/25 11:15 Acetaminophen 500 Mg Tablet PO 01/23/25 11:16 PREOP ONE Cefazolin Sodium 2 gm/ Sodium 110 mls @ 150 mls/hr 01/23/25 11:15 Chloride IV 01/23/25 11:58 INTRAOP ONE Tranexamic Acid 1,000 mg/ 110 mls @ 440 mls/hr 01/23/25 11:15 Sodium Chloride IV 01/23/25 11:29 INTRAOP ONE Tranexamic Acid 1,000 mg/ 110 mls @ 440 mls/hr 01/23/25 11:15 Sodium Chloride IV 01/23/25 11:29 INTRAOP ONE Insulin Human Lispro 1 - 6 unit 01/23/25 11:15 Insulin Lispro 100 Unit/Ml Insuln.Pen SC 01/23/25 18:00 Q4H PRN PRN BG>/= 180, SEE PROTOCOL Protocol PFSH Medical History (Updated 01/22/25 @ (more content not included)... Normal [facility] Hepatitis A AB, Totalon 01-03 HEPATITIS A,TOT Negative Normal Negative [facility] Comment on above: Result Comment: Comm ent: The HAV total antibody assay detects both IgG and IgM but does not differentiate between them. A negative result suggests susceptibility to infection. A positive result could be due to vaccination, previously resolved infection or active infection. Testing for HAV IgM should be performed if active HAV infection is suspected. [facility] offers profiles that will automatically reflex positive HAV total antibody results to IgM (e.g., panel #[id number] HAV Antibody w/ Rfx). Performed at: [address] [id number] Core Machine Tender: Anton Yi PhD, Phone: [phone] Performed By: #### L 501.9983, L3890.6006, L3890.6202, L3890.6301, L100.0100, BTSPAT, L3100.0300 ####[facility] [id number] [place], [place], [id number] MRSA/SAID NASAL SCREENon MRSA+SAID SCRN Reason for Exam: PREOP Copy of report sent to Infection Control Printer [id number] 01/18/25 4447 [place]. MRSA MRSA Negative S. AUREUS S. aureus PositiveA Normal [facility] Comment on above: Performed By: #### M 100.651 ####[facility] [id number] [place], [place], [id number] Orthopedic Visit Reporton Orthopedic Visit Report [facility] [address] [place] [address] [address] [place], [place] [address] OFFICE VISIT Date of Service: 01/17/25 MR#: [id number] Acct: [id number] Name: EVELIN SANDHU Rep #: [id number] : 1950 Provider: Dr. Shaq Chandra MD Age/Sex: 74/F Location: [facility] [place] Status: Signed Intake Vital Signs 11/29/24 13:54 Height 4 ft 8 in Weight: 165 lb BMI 37.0 Intake Visit Reasons: lumbar spine Chief Complaint: Lumbar spine pain Allergies codeine Allergy (Verified 11/29/24 13:58) Rash bismuth subsalicylate (From Pepto-Bismol) Adverse Reaction (Verified 11/29/24 13:58) Nausea/Vom/Diarrhea diphenhydramine HCl (From Benadryl) Adverse Reaction (Verified 11/29/24 13:58) Nausea/Vom/Diarrhea simvastatin (From Zocor) Adverse Reaction (Verified 11/29/24 13:58) Nausea Medications ???Medication ???Instructions ???Recorded ???Confirmed ???Type albuterol sulfate 90 mcg/actuation 2 puff IH PRN PRN Asthma 7 01/17/25 History aerosol inhaler ascorbic acid (vitamin C) 500 mg 500 mg PO DAILY@0800 11/04/1601/03 History tablet atorvastatin 20 mg tablet 20 mg PO QHS 11/04/16 01/17/25 His tory cholecalciferol (vitamin D3) 50 6,000 unit PO DAILY 11/04/1601/17 History mcg (2,000 unit) capsule citalopram 40 mg tablet 20 mg PO DAILY anxiety 11/04/16 History fish oil-dha-epa 1,200 mg-144 1 ea PO DAILY 11/04/16 01/17/25 Hi story mg-216 mg capsule fluticasone furoate 100 1 puff IH DAILY 11/04/16 01/17/25 History mcg-vilanterol 25 mcg/dose inhalation powder levothyroxine 112 mcg tablet 112 mcg PO DAILY thyroid 11/04/16 01/17/25 History melatonin 5 mg-pyridoxine (vitamin 1 ea PO QHS 11/04/16 01/17/25 Hi story B6) 1 mg tablet multivitamin-minerals -calcium-folic 1 ea PO DAILY 11/04/16 01/17/25 History acid 400 mcg-vit K1 20 mcg tablet venlafaxine 37.5 mg 37.5 mg PO QHS 11/04/16 01/17/25 H istory tablet,extended release 24 hr vitamin E 268 mg (400 unit) capsule 400 unit PO DAILY 11/04/1601/03 History calcium 500 mg (as carbonate)-vit 2 tab PO QHS 11/08/16 01/17/25 Hi story D3 10 mcg (400 unit) chewable tablet gabapentin 100 mg capsule 100 mg PO TID nerve pain 03/16/21 01/17/25 History losartan 100 mg tablet (Cozaar) 100 mg PO DAILY #30 tabs 03/17/21 01/17/25 Rx nystatin 100,000 unit/gram topical 1 applic topical BID #30 grams 0 03/17/21 01/17/25 Rx powder famotidine 40 mg tablet 40 mg PO DAILY 04/24/21 01/17/25 H istory Have you fallen in the past year?: No PFSH Medical History Obesity Hyperlipidemia Patent foramen ovale Essential hypertension History of non-ST elevation myocardial infarction (NSTEMI) (03/16/21) Osteoarthritis Osteoporosis Non-smoker Degenerative lumbar spinal stenosis Asthma Anxiety Depression Chronic pain GERD (gastroesophageal reflux disease) Screening for colon cancer Surgical History History of left heart catheterization (03/17/21) H/O thyroidectomy History of appendectomy Social History Smoking Status: Never smoker HPI lumbar spine Details: This documentation accurately reflects the service provided and the decisions made by me, Dr. Shaq Chandra MD 01/17/25 1100. Part of today???s visit was documented by Jackeline MAZARIEGOS, acting as scribe. EVELIN SANDHU is a 74 year old F here today for preop, lumbar spine, dos 01/23/25. She continues to have low back pain with difficulty walking distances. She uses a cane for short distances. She takes yfze-jir-megwoaf calcium and vitamin D supplementation. 11/29/24: EVELIN SANDHU is a 74 year old F here today for lumbar spine pain. This started in June 2024. Patient schwartz ambulate with a cane as she is unable to use a walker in her mobile home. Patient woke up with lower back pain one morning. She effie to get out of the chair and fell. The pain feels like there are a bunch of needles poking her. It hurts worse in the lower back and in the gluteus. Sometimes she will get lower back pain and down the back of both legs. Dr. Combs has been doing back injections since she was diagnosed with spinal stenosis. The last shot she got was in 07/31/2024 only gave her 1 day of relief, the injection before that one gave her relief for 2 months. She has been receiving injections since 2012. Denies any back surgery. Patient did pt 2 years ago and it didn't help. Her balance isn't good, she has to hold on to items around the house. Patient has to use a cane, both of her legs will give out. Patient denies any numbness or tingling. When she falls it is usually because her legs are painful and give out on her. Her leg pain i (more content not included)... Normal [facility] Absolute lymphocyte countOrd ered By: Shaq Chandra on 01-16-2025 Lymphocytes Auto (Unsp spec) [#/Vol] 2.23 10*3/uL 0.83-4.51 [facility] Absolute neutrophil countOrd ered By: Shaq Chandra on 01-16-2025 Neutrophils (Bld) [#/Vol] 4.9 10*3/uL 2.0-7.7 [facility] Activated partial thrombopla stin time (aPTT) in platelet poor plasma by coagulation aOrdered By: Neil Coronado on 01-16-2025 aPTT Coag (PPP) [Time] 27.8 s 24.1-36.2 [facility] Anion gap in Serum or Plasma Ordered By: Neil Coronado on 01-16-2025 Anion gap [Moles/Vol] 13 mmol/L 5-15 [facility] Automated lymphocyte count a s percentage of total leukocytesOrdered By: Shaq Chandra on 01-16-2025 Lymphocytes/100 WBC Auto (Unsp spec) 28.4 % 19-41 [facility] BUN/creatinine ratioOrdered By: Neil Coronado on 01-16-2025 Urea nitrogen/Creatinine [Mass ratio] 15.0 mg/mg 10-20 [facility] Basic Metabolic Profile (BMP )on 01-16-2025 BUN/CRE 15.0 RATIO Normal -20 [facility] Comment on above: Performed By: #### L 300.3900, L300.4310, L501.9520, L500.2500 #### [facility] [address] [place], [address] Calcium [Mass/Vol] 9.5 mg/dL Normal 7.6-11.0 [facility] Comment on above: Performed By: #### L 300.3900, L300.4310, L501.9520, L500.2500 #### [facility] [address] [place], [address] Chloride [Moles/Vol] 102 mmol/L Normal 98-108 [facility] Comment on above: Performed By: #### L 300.3900, L300.4310, L501.9520, L500.2500 #### [facility] [address] [place], [address] CO2 [Moles/Vol] 21.0 mmol/L Normal 21.0-32.0 [facility] Comment on above: Performed By: #### L 300.3900, L300.4310, L501.9520, L500.2500 #### [facility] [address] [place], [address] Creatinine [Mass/Vol] 0.92 mg/dL Normal 0.70-1.20 [facility] Comment on above: Performed By: #### L 300.3900, L300.4310, L501.9520, L500.2500 #### [facility] [address] [place], [address] GAP 13 Normal 5-15 [facility] Comment on above: Performed By: #### L 300.3900, L300.4310, L501.9520, L500.2500 #### [facility] [address] [place], [address] GFR/1.73 sq M.predicted among non-blacks MDRD (S/P/Bld) [Vol rate/Area] 65 mL/min/{1.73_m2} Normal >60 [facility] Comment on above: Result Comment: mL/m in/1.73m2 CKD-EPI Creatinine Equation (2020) Performed By: #### L 300.3900, L300.4310, L501.9520, L500.2500 #### [facility] [address] [place], [address] Glucose [Mass/Vol] 107 mg/dL High 70-99 [facility] Comment on above: Performed By: #### L 300.3900, L300.4310, L501.9520, L500.2500 #### [facility] [address] [place], [address] Potassium [Moles/Vol] 4.0 mmol/L Normal 3.3-5.1 [facility] Comment on above: Performed By: #### L 300.3900, L300.4310, L501.9520, L500.2500 #### [facility] [address] [place], [address] Sodium [Moles/Vol] 137 mmol/L Normal 133-145 [facility] Comment on above: Performed By: #### L 300.3900, L300.4310, L501.9520, L500.2500 #### [facility] [address] [place], [address] Urea nitrogen [Mass/Vol] 14 mg/dL Normal 4-19 [facility] Comment on above: Performed By: #### L 300.3900, L300.4310, L501.9520, L500.2500 #### [facility] [address] [place], [address] Basophil percentageOrdered B y: Shaq Chandra on 01-16-2025 Basophils/100 WBC (Bld) 0.5 % 0-[address] [facility] CBC W/Diff, Automatedon 01-03 Absolute Lymph 2.23 X10 3/uL Normal 0.83-4.51 [facility] Comment on above: Performed By: #### L 501.9985, L3890.6006, L3890.6202, L3890.6301, L100.0100, BTSPAT, L3100.0300 ####[facility] [address] [place], [address] Absolute Neut 4.9 X10 3/uL Normal 2.0-7.7 [facility] Comment on above: Performed By: #### L 501.9985, L3890.6006, L3890.6202, L3890.6301, L100.0100, BTSPAT, L3100.0300 ####[facility] [address] [place], [address] Basophils/100 WBC (Bld) 0.5 % Normal 0-[address] [facility] Comment on above: Performed By: #### L 501.9985, L3890.6006, L3890.6202, L3890.6301, L100.0100, BTSPAT, L3100.0300 ####[facility] [address] [place], [address] Eosinophils/100 WBC (Bld) 2.7 % Normal 0-5 [facility] Comment on above: Performed By: #### L 501.9985, L3890.6006, L3890.6202, L3890.6301, L100.0100, BTSPAT, L3100.0300 ####[facility] [address] [place], [address] Erythrocyte distribution width (RBC) [Ratio] 13.6 % Normal 11.6-14.6 [facility] Comment on above: Performed By: #### L 501.9985, L3890.6006, L3890.6202, L3890.6301, L100.0100, BTSPAT, L3100.0300 ####[facility] [address] [place], [address] Hematocrit (Bld) [Volume fraction] 41.1 % Normal 37-47 [facility] Comment on above: Performed By: #### L 501.9985, L3890.6006, L3890.6202, L3890.6301, L100.0100, BTSPAT, L3100.0300 ####[facility] [address] [place], [address] Hemoglobin (Bld) [Mass/Vol] 13.1 g/dL Normal 12.0-15.0 [facility] Comment on above: Performed By: #### L 501.9985, L3890.6006, L3890.6202, L3890.6301, L100.0100, BTSPAT, L3100.0300 ####[facility] [address] [place], [address] IG% 0.300 Normal 0.0-0.9 [facility] Comment on above: Result Comment: IG% - Immature Granulocytes (promyelocytes, myelocytes and metamyelocytes) > 1% indicates that a LEFT SHIFT is Present. Performed By: #### L 501.9985, L3890.6006, L3890.6202, L3890.6301, L100.0100, BTSPAT, L3100.0300 ####[facility] [address] [place], [address] Lymphocytes/100 WBC (Bld) 28.4 % Normal 19-41 [facility] Comment on above: Performed By: #### L 501.9985, L3890.6006, L3890.6202, L3890.6301, L100.0100, BTSPAT, L3100.0300 ####[facility] [address] [place], [address] MCH (RBC) [Entitic mass] 27.3 pg Normal 27.0-32.0 [facility] Comment on above: Performed By: #### L 501.9985, L3890.6006, L3890.6202, L3890.6301, L100.0100, BTSPAT, L3100.0300 ####[facility] [address] [place], [address] MCHC (RBC) [Mass/Vol] 31.9 g/dL Low 32-36 [facility] Comment on above: Performed By: #### L 501.9985, L3890.6006, L3890.6202, L3890.6301, L100.0100, BTSPAT, L3100.0300 ####[facility] [address] [place], [address] MCV (RBC) [Entitic vol] 85.8 fL Normal 81-[address] [facility] Comment on above: Performed By: #### L 501.9985, L3890.6006, L3890.6202, L3890.6301, L100.0100, BTSPAT, L3100.0300 ####[facility] [address] [place], [address] Monocytes/100 WBC (Bld) 5.6 % Normal 0-10 [facility] Comment on above: Performed By: #### L 501.9985, L3890.6006, L3890.6202, L3890.6301, L100.0100, BTSPAT, L3100.0300 ####[facility] [address] [place], [address] Neutrophils/100 WBC (Bld) 62.5 % Normal 47-70 [facility] Comment on above: Performed By: #### L 501.9985, L3890.6006, L3890.6202, L3890.6301, L100.0100, BTSPAT, L3100.0300 ####[facility] [address] [place], [address] Nucleated RBC (Bld) [#/Vol] 0 10*3/uL Normal 0-5 [facility] Comment on above: Performed By: #### L 501.9985, L3890.6006, L3890.6202, L3890.6301, L100.0100, BTSPAT, L3100.0300 ####[facility] [address] [place], [address] Platelet mean volume (Bld) [Entitic vol] 9.3 fL Normal 6.2-12.0 [facility] Comment on above: Performed By: #### L 501.9985, L3890.6006, L3890.6202, L3890.6301, L100.0100, BTSPAT, L3100.0300 ####[facility] [address] [place], [address] Platelets (Bld) [#/Vol] 284 10*3/uL Normal 150-450 [facility] Comment on above: Performed By: #### L 501.9985, L3890.6006, L3890.6202, L3890.6301, L100.0100, BTSPAT, L3100.0300 ####[facility] [address] [place], [address] RBC (Bld) [#/Vol] 4.79 10*6/uL Normal 4.2-5.4 [facility] Comment on above: Performed By: #### L 501.9985, L3890.6006, L3890.6202, L3890.6301, L100.0100, BTSPAT, L3100.0300 ####[facility] [address] [place], [address] RDW SD 43.0 fl Normal 35.1-43.9 [facility] Comment on above: Performed By: #### L 501.9985, L3890.6006, L3890.6202, L3890.6301, L100.0100, BTSPAT, L3100.0300 ####[facility] [address] [place], [address] WBC (Bld) [#/Vol] 7.8 10*3/uL Normal 4.4-11.0 [facility] Comment on above: Performed By: #### L 501.9985, L3890.6006, L3890.6202, L3890.6301, L100.0100, BTSPAT, L3100.0300 ####[facility] [address] [place], [address] Absolute Neut Normal 2.0-7.7 [facility] Comment on above: Order Comment: ADD D IFF TO CBC PLEASE Result Comment: DUPL ICATE ORDER Performed By: #### L 100.0100 #### [facility] [address] [place], [address] HCT Normal 37-47 [facility] Comment on above: Order Comment: ADD D IFF TO CBC PLEASE Result Comment: DUPL ICATE ORDER Performed By: #### L 100.0100 #### [facility] [address] [place], [address] HGB Normal 12.0-15.0 [facility] Comment on above: Order Comment: ADD D IFF TO CBC PLEASE Result Comment: DUPL ICATE ORDER Performed By: #### L 100.0100 #### [facility] [address] [place], [address] MCH Normal 27.0-32.0 [facility] Comment on above: Order Comment: ADD D IFF TO CBC PLEASE Result Comment: DUPL ICATE ORDER Performed By: #### L 100.0100 #### [facility] [address] [place], [address] MCHC Normal 32-36 [facility] Comment on above: Order Comment: ADD D IFF TO CBC PLEASE Result Comment: DUPL ICATE ORDER Performed By: #### L 100.0100 #### [facility] [address] [place], [address] MCV Normal 81-99 [facility] Comment on above: Order Comment: ADD D IFF TO CBC PLEASE Result Comment: DUPL ICATE ORDER Performed By: #### L 100.0100 #### [facility] [address] [place], [address] NEUT% Normal 47-70 [facility] Comment on above: Order Comment: ADD D IFF TO CBC PLEASE Result Comment: DUPL ICATE ORDER Performed By: #### L 100.0100 #### [facility] [address] [place], [address] PLT Normal 150-450 [facility] Comment on above: Order Comment: ADD D IFF TO CBC PLEASE Result Comment: DUPL ICATE ORDER Performed By: #### L 100.0100 #### [facility] [address] [place], [address] RBC Normal 4.2-5.4 [facility] Comment on above: Order Comment: ADD D IFF TO CBC PLEASE Result Comment: DUPL ICATE ORDER Performed By: #### L 100.0100 #### [facility] [address] [place], [address] RDW CV Normal 11.6-14.6 [facility] Comment on above: Order Comment: ADD D IFF TO CBC PLEASE Result Comment: DUPL ICATE ORDER Performed By: #### L 100.0100 #### [facility] [address] [place], [address] RDW SD Normal 35.1-43.9 [facility] Comment on above: Order Comment: ADD D IFF TO CBC PLEASE Result Comment: DUPL ICATE ORDER Performed By: #### L 100.0100 #### [facility] [address] [place], [address] WBC Normal 4.4-11.0 [facility] Comment on above: Order Comment: ADD D IFF TO CBC PLEASE Result Comment: DUPL ICATE ORDER Performed By: #### L 100.0100 #### [facility] [address] [place], [address] Carbon dioxide, total [Moles /volume] in Central venous bloodOrdered By: Neil Coronado on 01-16-2025 CO2 [Moles/Vol] 21.0 mmol/L 21.0-32.0 [facility] Chloride assayOrdered By: Kecia Coronado on 01-16-2025 Chloride [Moles/Vol] 102 mmol/L 98-108 [facility] Eosinophil percentageOrdered By: Shaq Chandra on 01-16-2025 Eosinophils/100 WBC (Bld) 2.7 % 0-5 [facility] Erythrocyte distribution wid th ratioOrdered By: Shaq Chandra on 01-16-2025 Erythrocyte distribution width (RBC) [Ratio] 13.6 % 11.6-14.6 [facility] Erythrocyte distribution wid th standard deviationOrdered By: Shaq Chandra on 01-16-2025 Erythrocyte distribution width (RBC) [Ratio] 43.0 fl 35.1-43.9 [facility] Glomerular filtration rate ( GFR) estimation/1.73 sq m using serum, plasma, or whole bOrdered By: Neil Coronado on 01-16-2025 GFR/1.73 sq M.predicted among non-blacks MDRD (S/P/Bld) [Vol rate/Area] 65 mL/min/{1.73_m2} >60 [facility] Comment on above: mL/min/1.73m2 CKD-EP I Creatinine Equation (2020) HIVon 01-16-2025 HIV Non-Reactive Normal Nonreactive [facility] Comment on above: Result Comment: Non- Reactive Reactive Repeatedly reactive samples must be confirmed according to CDC recommended confirmatory algorithms. The subresults for either HIVAG or AHIV can be used as an aid in the selection of the confirmation algorithm for reactive samples. Send out specimens with Reactive results to [facility] for confirmation. Order the HIV antibody detection and differentiation: lc#[id number] Performed By: #### L 501.9985, L3890.6006, L3890.6202, L3890.6301, L100.0100, BTSPAT, L3100.0300 ####[facility] [address] [place], [place], [address] Hematocrit Auto (Bld) [Volum e fraction]Ordered By: Shaq Chandra on 01-16-2025 Hematocrit (Bld) [Volume fraction] 41.1 % 37-47 [facility] Hemoglobin A1con 01-16-2025 HbA1c (Bld) [Mass fraction] 5.8 % High <=5.6 [facility] Comment on above: Result Comment: Norm al < 5.7 % Prediabetic 5.7 - 6.4 % Diabetic >or= 6.5 % Please note range changes. Performed By: #### L 501.9985, L3890.6006, L3890.6202, L3890.6301, L100.0100, BTSPAT, L3100.0300 ####[facility] [address] [place], [place], [address] Hemoglobin A1c percentageOrd ered By: Shaq Chandra on 01-16-2025 HbA1c (Bld) [Mass fraction] 5.8 % High <5.7 [facility] Comment on above: Normal < 5.7 % Predi abetic 5.7 - 6.4 % Diabetic >or= 6.5 % Please note range changes. Hemoglobin measurementOrdere d By: Shaq Chandra on 01-16-2025 Hemoglobin (Bld) [Mass/Vol] 13.1 g/dL 12.0-15.0 [facility] Hepatitis B Surface Antibody on 01-16-2025 HEP B Surf Ab Non-Reactive Normal [facility] Comment on above: Result Comment: <8.5 mIU/mL: Non-Reactive 8.5<= x <11.5 mIU/mL: Indeterminate >=11.5 mIU/mL: Reactive Non Reactive: Inconsistent with immunity less than <10 mIU/mL Reactive: Consistent with immunity greater than or equal to 10 mIU/mL Performed By: #### L 501.9985, L3890.6006, L3890.6202, L3890.6301, L100.0100, BTSPAT, L3100.0300 ####[facility] [address] [facility] [address] [place], [place], [address] Hepatitis C Antibodyon 01-16 Hepatitis C Ab Non-Reactive Normal Nonreactive [facility] Comment on above: Result Comment: Reac tive: Presumptive evidence of antibodies to HCV. Follow CDC recommendations for supplemental testing. Non-Reactive: Antibodies to HCV were not detected; does not exclude the possibility of exposure to HCV Reactive Results are presumptive evidence of antibodies to HCV. Follow CDC recommendations for supplemental testing. Order confirmation testing: HCV Quant by PCR testing - HCVPCR #[id number] Non Reactive: < 0.8 Equivocal: >/= 0.8 to < 1.0 Reactive: >/= 1.0 The CDC requires that a reactive/equivocal HCV antibody result be sent out for confirmation. HCV Quant by PCR testing. Performed By: #### L 501.9985, L3890.6006, L3890.6202, L3890.6301, L100.0100, BTSPAT, L3100.0300 ####[facility] [address] [facility] [place], [place], [address] Immature granulocytes/100 WB C Auto (Bld)Ordered By: Shaq Chandra on 01-16-2025 Immature granulocytes/100 WBC (Bld) 0.300 % 0.0-0.9 [facility] Comment on above: IG% - Immature Granu locytes (promyelocytes, myelocytes and metamyelocytes) > 1% indicates that a LEFT SHIFT is Present. International normalized rat io (INR) calculationOrdered By: Neil Coronado on 01-16-2025 INR Coag (Bld) [Relative time] 1.0 {INR} [facility] MCV (mean corpuscular volume ) determinationOrdered By: Shaq Chandra on 01-16-2025 MCV (RBC) [Entitic vol] 85.8 fL 81-[address] [facility] MRSA screenOrdered By: Kesha Chandra on 01-16-2025 MRSA DNA JIMMIE+probe Ql (Unsp spec) [facility] Magnesiumon 01-16-2025 Magnesium [Mass/Vol] 2.3 mg/dL High 1.5-2.2 [facility] Comment on above: Performed By: #### L 501.5200 ####[facility] [address] [place], [address] Magnesium measurement (mass/ volume)Ordered By: Mickey Wilkins on 01-16-2025 Magnesium (Unsp spec) [Mass/Vol] 2.3 mg/dL High 1.5-2.2 [facility] Mean corpuscular hemoglobin (MCH) determinationOrdered By: Shaq Chandra on 01-16-2025 MCH (RBC) [Entitic mass] 27.3 pg 27.0-32.0 [facility] Mean corpuscular hemoglobin concentration (MCHC) determinationOrdered By: Shaq Chandra on 01-16-2025 MCHC (RBC) [Mass/Vol] 31.9 g/dL Low 32-36 [facility] Mean platelet volume determi nationOrdered By: Shaq Chandra on 01-16-2025 Platelet mean volume (Bld) [Entitic vol] 9.3 fL 6.2-12.0 [facility] Monocyte percentageOrdered B y: Shaq Chandra on 01-16-2025 Monocytes/100 WBC (Bld) 5.6 % 0-[address] [facility] Neutrophil percentageOrdered By: Shaq Chandra on 01-16-2025 Neutrophils/100 WBC (Bld) 62.5 % 47-70 [facility] No Panel InformationOrdered By: Shaq Chandra on 01-16-2025 HIV (1&2) Antibody Non-Reactive Nonreactive [facility] Comment on above: Non-ReactiveReactive Repeatedly reactive samples must be confirmed according to CDC recommended confirmatory algorithms. The subresults for either HIVAG or AHIV can be used as an aid in the selection of the confirmation algorithm for reactive samples.Send out specimens with Reactive results to [facility] for confirmation.Order the HIV antibody detection and differentiation: #[id number] Nucleated red blood cell per centageOrdered By: Shaq Chandra on 01-16-2025 Nucleated RBC/100 WBC (Bld) [Ratio] 0 % 0-5 [facility] Partial Thromboplast Timeon 01-16-2025 aPTT Coag (Bld) [Time] 27.8 s Normal 24.1-36.2 [facility] Comment on above: Order Comment: Order Date: 12/31/24 Order Info: 6301-6 - PT Order Info: [id number] - PTT Performed By: #### L 300.3900, L300.4310, L501.9520, L500.2500 #### [facility] [address] [place], [place], [address] Platelet countOrdered By: Kecia Chandra on 01-16-2025 Platelets (Bld) [#/Vol] 284 10*3/uL 150-450 [facility] Potassium measurement (mass/ volume)Ordered By: Neil Coronado on 01-16-2025 Potassium (Unsp spec) [Mass/Vol] 4.0 mmol/L 3.3-5.1 [facility] Prothrombin Time w/INRon INR Coag (PPP) [Relative time] 1.0 {INR} Normal [facility] Comment on above: Order Comment: Order Date: 12/31/24 Order Info: 6301-6 - PT Order Info: [id number] - PTT Performed By: #### L 300.3900, L300.4310, L501.9520, L500.2500 #### [facility] [address] [place], [address] PT Coag (PPP) [Time] 13.7 s Normal 11.7-14.9 [facility] Comment on above: Order Comment: Order Date: 12/31/24 Order Info: 6301-6 - PT Order Info: [id number] - PTT Performed By: #### L 300.3900, L300.4310, L501.9520, L500.2500 #### [facility] [address] [place], [address] Prothrombin timeOrdered By: Neil Coronado on 01-16-2025 PT Coag (PPP) [Time] 13.7 s 11.7-14.9 [facility] RBC Auto (Bld) [#/Vol]Ordere d By: Shaq Chandra on 01-16-2025 RBC (Bld) [#/Vol] 4.79 10*6/uL 4.2-5.4 [facility] Serum creatinine measurement (mass/volume)Ordered By: Neil Coronado on 01-16-2025 Creatinine [Mass/Vol] 0.92 mg/dL 0.70-1.20 [facility] Serum glucose measurement (m ass/volume)Ordered By: Neil Coronado on 01-16-2025 Glucose [Mass/Vol] 107 mg/dL High 70-99 [facility] Serum hepatitis B virus surf shaun antibody detectionOrdered By: Shaq Chandra on 01-16-2025 HBV surface Ab Ql (S) Non-Reactive [facility] Comment on above: <8.5 mIU/mL: Non-[place] ctive8.5<= x <11.5 mIU/mL: Indeterminate>=11.5 mIU/mL: Reactive Non Reactive: Inconsistent with immunity less than <10 mIU/mL Reactive: Consistent with immunity greater than or equal to 10 mIU/mL Serum or plasma calcium sunshine urement (mass/volume)Ordered By: Neil Coronado on 01-16-2025 Calcium [Mass/Vol] 9.5 mg/dL 7.6-11.0 [facility] Serum or plasma urea nitroge n measurement (mass/volume)Ordered By: Neil Coronado on 01-16-2025 Urea nitrogen [Mass/Vol] 14 mg/dL 4-19 [facility] Sodium levelOrdered By: Camila Coronado on 01-16-2025 Sodium [Moles/Vol] 137 mmol/L 133-145 [facility] TSH DL <= 0.005 mIU/L QnOrde red By: Neil Coronado on 01-16-2025 TSH Qn 0.576 uIU/mL 0.300-4.200 [facility] Thyroid Stim Hormone (TSH)on 01-16-2025 TSH 0.576 uIU/mL Normal 0.300-4.200 [facility] Comment on above: Performed By: #### L 300.3900, L300.4310, L501.9520, L500.2500 #### [facility] [address] [place], [address] Type AND Screen - PAT ONLYon 01-16-2025 ABO and Rh group Nom (Bld) Blood group O Rh(D) negative Normal [facility] Comment on above: Order Comment: Surge ry Date: 01/23/25Reason for Laboratory Test [id number] LUMBAR FUSION L3-4 L4-5 Performed By: #### L 501.9985, L3890.6006, L3890.6202, L3890.6301, L100.0100, BTSPAT, L3100.0300 ####[facility] [address] [place], [address] White blood cell (WBC) count Ordered By: Shaq Chandra on 01-16-2025 WBC (Bld) [#/Vol] 7.8 10*3/uL 4.4-11.0 [facility] L/S Spine Min 4 Viewson 11-04 L/S Spine Min 4 Views [facility] Services [address] [place] [address] L/S Spine Min 4 Views MR#: [id number] Acct: [id number] Name: EVELIN SANDHU Rep #: [id number] : 1950 F 74 From: [facility]oda Marmolejo PCP: Dr. Neil Coronado MD Status: DEP AMB Study: L/S Spine Min 4 Views Date of Exam: 11/29/24 Exam# [id number] Ordering Dr: Shaq Chandra MD PROCEDURE: L/S SPINE MIN 4 VIEWS 11/29/2024 REASON FOR EXAM: CHRONIC PAIN TECHNIQUE: Standing AP view(s) of the thoracic and lumbar spine. COMPARISON: MRI lumbar spine dated 10/17/2024 FINDINGS: Four views of the lumbosacral spine demonstrate 5 lumbar-type vertebral bodies below the last set of paired ribs. The vertebral body heights are within normal limits. There is a subtle dextroscoliosis of the lumbar spine. There is a proximally 3 mm of anterior listhesis of L4 relationship to L5. Mild degenerative changes are noted. There is disc space narrowing involving all of the intervertebral disc spaces. There does appear to be bony encroachment on the neural foramina at all levels. There are no fractures or dislocations of the sacrum. Arteriosclerotic vascular disease of the aorta is noted. RAD/L/S Spine Min 4 Views IMPRESSION: Degenerative disc disease involving all of the lumbar discs. There is bony encroachment on the neural foramina at all levels. Arteriosclerotic vascular disease of the aorta. Reading Location: [facility] CC: Dr. Shaq Chandra MD; Dr. Neil Coronado MD Labor Gang Supervisor: Signed Normal [facility] Orthopedic Visit Reporton Orthopedic Visit Report [facility] [address] [place] [address] OFFICE VISIT Date of Service: 11/29/24 MR#: [id number] Acct: [id number] Name: EVELIN SANDHU Maryjane Rep #: [id number] : 1950 Provider: Dr. Shaq Chandra MD Age/Sex: 74/F Location: [facility] [place] Status: Signed Intake Vital Signs 01/28/22 14:34 11/29/24 13:54 Height 4 ft 8 in 4 ft 8 in Weight: 165 lb BMI 37.0 Intake Visit Reasons: LUMBAR SPINE Chief Complaint: Lumbar spine pain Accompanied by: Self Is patient in pain?: Yes Pain scale (1-10): 4 Allergies codeine Allergy (Verified 11/29/24 13:58) Rash bismuth subsalicylate (From Pepto-Bismol) Adverse Reaction (Verified 11/29/24 13:58) Nausea/Vom/Diarrhea diphenhydramine HCl (From Benadryl) Adverse Reaction (Verified 11/29/24 13:58) Nausea/Vom/Diarrhea simvastatin (From Zocor) Adverse Reaction (Verified 11/29/24 13:58) Nausea Medications ???Medication ???Instructions ???Recorded ???Confirmed ???Type albuterol sulfate 90 mcg/actuation 2 puff IH PRN PRN Asthma 7 11/29/24 History aerosol inhaler ascorbic acid (vitamin C) 500 mg 500 mg PO DAILY@0800 11/04/1611/04 History tablet atorvastatin 20 mg tablet 20 mg PO QHS 11/04/16 11/29/24 His tory cholecalciferol (vitamin D3) 50 6,000 unit PO DAILY 11/04/1611/29 History mcg (2,000 unit) capsule citalopram 40 mg tablet 20 mg PO DAILY anxiety 11/04/16 History fish oil-dha-epa 1,200 mg-144 1 ea PO DAILY 11/04/16 11/29/24 Hi story mg-216 mg capsule fluticasone furoate 100 1 puff IH DAILY 11/04/16 11/29/24 History mcg-vilanterol 25 mcg/dose inhalation powder levothyroxine 112 mcg tablet 112 mcg PO DAILY thyroid 11/04/16 11/29/24 History melatonin 5 mg-pyridoxine (vitamin 1 ea PO QHS 11/04/16 11/29/24 Hi story B6) 1 mg tablet multivitamin-minerals -calcium-folic 1 ea PO DAILY 11/04/16 11/29/24 History acid 400 mcg-vit K1 20 mcg tablet venlafaxine 37.5 mg 37.5 mg PO QHS 11/04/16 11/29/24 H istory tablet,extended release 24 hr vitamin E 268 mg (400 unit) capsule 400 unit PO DAILY 11/04/1611/04 History calcium 500 mg (as carbonate)-vit 2 tab PO QHS 11/08/16 11/29/24 Hi story D3 10 mcg (400 unit) chewable tablet gabapentin 100 mg capsule 100 mg PO TID nerve pain 03/16/21 11/29/24 History losartan 100 mg tablet (Cozaar) 100 mg PO DAILY #30 tabs 03/17/21 11/29/24 Rx nystatin 100,000 unit/gram topical 1 applic topical BID #30 grams 0 03/17/21 11/29/24 Rx powder famotidine 40 mg tablet 40 mg PO DAILY 04/24/21 11/29/24 H istory Have you fallen in the past year?: Yes PFSH Medical History Obesity Hyperlipidemia Patent foramen ovale Essential hypertension History of non-ST elevation myocardial infarction (NSTEMI) (03/16/21) Osteoarthritis Osteoporosis Non-smoker Degenerative lumbar spinal stenosis Asthma Anxiety Depression Chronic pain GERD (gastroesophageal reflux disease) Screening for colon cancer Surgical History History of left heart catheterization (03/17/21) H/O thyroidectomy History of appendectomy Social History Smoking Status: Never smoker HPI LUMBAR SPINE Details: This documentation accurately reflects the service provided and the decisions made by me, Dr. Shaq Chandra MD 11/29/24 5135. Part of today???s visit was documented by Peg Aguila MA, acting as scribe. EVELIN SANDHU is a 74 year old F here today for lumbar spine pain. This started in June 2024. Patient schwartz ambulate with a cane as she is unable to use a walker in her mobile home. Patient woke up with lower back pain one morning. She effie to get out of the chair and fell. The pain feels like there are a bunch of needles poking her. It hurts worse in the lower back and in the gluteus. Sometimes she will get lower back pain and down the back of both legs. Dr. Combs has been doing back injections since she was diagnosed with spinal stenosis. The last shot she got was in 07/31/2024 only gave her 1 day of relief, the injection before that one gave her relief for 2 months. She has been receiving injections since 2012. Denies any back surgery. Patient did pt 2 years ago and it didn't help. Her balance isn't good, she has to hold on to items around the house. Patient has to use a cane, both of her legs will give out. Patient denies any numbness or tingling. When she falls it is usually because her legs are painful and give out on her. Her leg pain is over her posterior legs that stops at the ankle. Patient is unable to walk more than 1/2 a mile when using her cane. Or (more content not included)... Normal [facility] Spine Lumbar (Routine)on Spine Lumbar (Routine) [facility] Imaging Services [address] [place] [address] Spine Lumbar (Routine) MR#: [id number] Acct: [id number] Name: EVELIN SANDHU Rep #: [id number] : 1950 F 74 From: Leandro Sorensen PCP: Dr. Neil Coronado MD Status: REG CLI Study: Spine Lumbar (Routine) Date of Exam: 10/17/24 Exam# [id number] Ordering Dr: Robb Combs MD PROCEDURE: MRI SPINE LUMBAR (ROUTINE) REASON FOR EXAM: Radiculopathy. TECHNIQUE: Lumbar spine MRI without intravenous gadolinium-based contrast. COMPARISON: Lumbar spine series of 12/13/2018. FINDINGS: Vertebrae: Lumbar vertebral body heights are preserved. Alignment: Mild anterolisthesis of L4 upon L5 noted.. No spondylolisthesis. Conus Medullaris: Tip at the superior L2 level. On sagittal images, at least moderate degenerative changes are again seen throughout the lumbar spine, with prominent disc narrowing seen from L2 through S1, greatest at L5-S1. On sagittal imaging, a slight disc bulge is seen at T11-T12. No spinal canal stenosis or neural foraminal narrowing is noted. T12-L1: A slight disc bulge is noted. No spinal canal stenosis or neural foraminal narrowing is seen. L1-2: A very mild disc bulge is noted. No significant spinal canal stenosis or neural foraminal narrowing is evident. L2-3: Mild posterior facet and ligamentum flavum hypertrophy is seen, jxbx-llicwax-asmv-rig ht. A mild disc bulge is seen, with superimposed right lateral moderate disc protrusion. Mild spinal canal stenosis is seen. No definite neural foraminal narrowing noted. L3-4: Bszx-wg-yzaquvgc posterior facet and ligamentum flavum hypertrophy is noted. Ytek-tq-mpzfahal broad-based disc protrusion seen. A moderate to moderately severe degree of spinal canal narrowing is present. No definite neural foraminal narrowing noted. L4-5: Moderately severe posterior facet and ligamentum flavum hypertrophy is seen. A mild disc bulge is seen. Moderately severe spinal canal narrowing is seen. At least mild bilateral neural foraminal narrowing is also noted. L5-S1: Mild left and dbtl-sg-bwapfkek right posterior facet hypertrophy is seen. A kmfa-pc-jbletcgp diffuse disc bulge is seen. Mild spinal canal narrowing is noted. In the presence of vertebral body osteophytosis as well, moderate to moderately severe right and moderate left neural foraminal narrowing also noted. Sacrum: Visualized upper sacrum is unremarkable. Mild sacroiliac joint degenerative changes are noted bilaterally, in visualized areas. MRI/Spine Lumbar (Routine) IMPRESSION: Prominent multilevel lumbar degenerative disc disease, as described, with multiple levels of spinal canal stenosis and neural foraminal narrowing, with moderately severe spinal canal stenosis seen at the L4-L5 level. Reading Location: [address] CC: Dr. Robb Combs MD; Dr. Neil Coronado MD Labor Gang Supervisor: Signed Normal [facility] CBC-Complete Blood Cnt No Di ffon 05-10-2024 Erythrocyte distribution width (RBC) [Ratio] 12.9 % Normal 11.6-14.6 [facility] Comment on above: Order Comment: Order Date: 01/23/24Order Info: [id number] - CBC Performed By: #### L 503.6150, L509.1000, L506.1000, L100.0500, L500.4050, L501.9520, L506.0400 ####[facility] [address] [place], [address] Hematocrit (Bld) [Volume fraction] 39.9 % Normal 37-47 [facility] Comment on above: Order Comment: Order Date: 01/23/24Order Info: [id number] - CBC Performed By: #### L 503.6150, L509.1000, L506.1000, L100.0500, L500.4050, L501.9520, L506.0400 ####[facility] [address] [place], [address] Hemoglobin (Bld) [Mass/Vol] 12.3 g/dL Normal 12.0-15.0 [facility] Comment on above: Order Comment: Order Date: 01/23/24Order Info: [id number] - CBC Performed By: #### L 503.6150, L509.1000, L506.1000, L100.0500, L500.4050, L501.9520, L506.0400 ####[facility] [address] [place], [address] MCH (RBC) [Entitic mass] 27.2 pg Normal 27.0-32.0 [facility] Comment on above: Order Comment: Order Date: 01/23/24Order Info: [id number] - CBC Performed By: #### L 503.6150, L509.1000, L506.1000, L100.0500, L500.4050, L501.9520, L506.0400 ####[facility] [address] [place], [address] MCHC (RBC) [Mass/Vol] 30.8 g/dL Low 32-36 [facility] Comment on above: Order Comment: Order Date: 01/23/24Order Info: [id number] - CBC Performed By: #### L 503.6150, L509.1000, L506.1000, L100.0500, L500.4050, L501.9520, L506.0400 ####[facility] [address], [address] MCV (RBC) [Entitic vol] 88.1 fL Normal 81-[address] [facility] Comment on above: Order Comment: Order Date: 01/23/24Order Info: [id number] - CBC Performed By: #### L 503.6150, L509.1000, L506.1000, L100.0500, L500.4050, L501.9520, L506.0400 ####[facility] [address] [place], [address] Platelet mean volume (Bld) [Entitic vol] 9.7 fL Normal 6.2-12.0 [facility] Comment on above: Order Comment: Order Date: 01/23/24Order Info: [id number] - CBC Performed By: #### L 503.6150, L509.1000, L506.1000, L100.0500, L500.4050, L501.9520, L506.0400 ####[facility] [address] [place], [address] Platelets (Bld) [#/Vol] 263 10*3/uL Normal 150-450 [facility] Comment on above: Order Comment: Order Date: 01/23/24Order Info: [id number] - CBC Performed By: #### L 503.6150, L509.1000, L506.1000, L100.0500, L500.4050, L501.9520, L506.0400 ####[facility] [address] [place], [address] RBC (Bld) [#/Vol] 4.53 10*6/uL Normal 4.2-5.4 [facility] Comment on above: Order Comment: Order Date: 01/23/24Order Info: [id number] - CBC Performed By: #### L 503.6150, L509.1000, L506.1000, L100.0500, L500.4050, L501.9520, L506.0400 ####[facility] [address] [place], [address] RDW SD 41.8 fl Normal 35.1-43.9 [facility] Comment on above: Order Comment: Order Date: 01/23/24Order Info: [id number] - CBC Performed By: #### L 503.6150, L509.1000, L506.1000, L100.0500, L500.4050, L501.9520, L506.0400 ####[facility] [address] [place], [place], [address] WBC (Bld) [#/Vol] 7.8 10*3/uL Normal 4.4-11.0 [facility] Comment on above: Order Comment: Order Date: 01/23/24Order Info: [id number] - CBC Performed By: #### L 503.6150, L509.1000, L506.1000, L100.0500, L500.4050, L501.9520, L506.0400 ####[facility] [address] [facility] [place], [place], [id number] Comprehensive Metabolic Prof ilon 05-10-2024 Albumin [Mass/Vol] 3.6 g/dL Normal 3.2-5.0 [facility] Comment on above: Order Comment: Order Date: 01/23/24Order Info: 0786-1 - CMPOrder Info: 3 - TSHOrder Info: 4 - FEOrder Info: 3023-7 - T4F Performed By: #### L 503.6150, L509.1000, L506.1000, L100.0500, L500.4050, L501.9520, L506.0400 ####[facility] [address] [facility] [place], [place], [address] Albumin/Globulin [Mass ratio] 1.1 {ratio} Normal 0.9-2.4 [facility] Comment on above: Order Comment: Order Date: 01/23/24Order Info: 0786-1 - CMPOrder Info: 3015-3 - TSHOrder Info: 2494 - FEOrder Info: 3024-7 - T4F Performed By: #### L 503.6150, L509.1000, L506.1000, L100.0500, L500.4050, L501.9520, L506.0400 ####[facility] [address] [place], [address] ALK P 69 U/L Normal 45-117 [facility] Comment on above: Order Comment: Order Date: 01/23/24Order Info: 0786-1 - CMPOrder Info: 3016-3 - TSHOrder Info: 2498-4 - FEOrder Info: 3024-7 - T4F Performed By: #### L 503.6150, L509.1000, L506.1000, L100.0500, L500.4050, L501.9520, L506.0400 ####[facility] [address] [place], [address] ALT [Catalytic activity/Vol] 15 U/L Normal 13-56 [facility] Comment on above: Order Comment: Order Date: 01/23/24Order Info: 07-1 - CMPOrder Info: 6-3 - TSHOrder Info: 2498-4 - FEOrder Info: 3024-7 - T4F Performed By: #### L 503.6150, L509.1000, L506.1000, L100.0500, L500.4050, L501.9520, L506.0400 ####[facility] [address] [place], [address] AST [Catalytic activity/Vol] 6 U/L Low 15-37 [facility] Comment on above: Order Comment: Order Date: 01/23/24Order Info: 0786-1 - CMPOrder Info: 3016-3 - TSHOrder Info: 2498-4 - FEOrder Info: 3024-7 - T4F Performed By: #### L 503.6150, L509.1000, L506.1000, L100.0500, L500.4050, L501.9520, L506.0400 ####[facility] [address] [place], [address] Bilirubin [Mass/Vol] 0.20 mg/dL Normal 0.20-1.00 [facility] Comment on above: Order Comment: Order Date: 01/23/24Order Info: 0786-1 - CMPOrder Info: 3015-3 - TSHOrder Info: 2494 - FEOrder Info: 3024-7 - T4F Result Comment: For patients on eltrombopag therapy, use of Dimension [place] TBIL is not recommended. Performed By: #### L 503.6150, L509.1000, L506.1000, L100.0500, L500.4050, L501.9520, L506.0400 ####[facility] [address] [place], [address] BUN/CRE 11.7 RATIO Normal 10-20 [facility] Comment on above: Order Comment: Order Date: 01/23/24Order Info: 785-1 - CMPOrder Info: 3 - TSHOrder Info: 4 - FEOrder Info: 3024-7 - T4F Performed By: #### L 503.6150, L509.1000, L506.1000, L100.0500, L500.4050, L501.9520, L506.0400 ####[facility] [address] [place], [address] CA,Total 9.6 mg/dL Normal 8.5-10.1 [facility] Comment on above: Order Comment: Order Date: 01/23/24Order Info: 07-1 - CMPOrder Info: 3 - TSHOrder Info: 2494 - FEOrder Info: 3024-7 - T4F Performed By: #### L 503.6150, L509.1000, L506.1000, L100.0500, L500.4050, L501.9520, L506.0400 ####[facility] [address] [place], [address] Chloride [Moles/Vol] 108 mmol/L High 98-107 [facility] Comment on above: Order Comment: Order Date: 01/23/24Order Info: 86-1 - CMPOrder Info: 3 - TSHOrder Info: 2497-12 - FEOrder Info: 302-7 - T4F Performed By: #### L 503.6150, L509.1000, L506.1000, L100.0500, L500.4050, L501.9520, L506.0400 ####[facility] [address] [place], [address] CO2 [Moles/Vol] 24.0 mmol/L Normal 21.0-32.0 [facility] Comment on above: Order Comment: Order Date: 01/23/24Order Info: 86-1 - CMPOrder Info: 3 - TSHOrder Info: 2497-12 - FEOrder Info: 3027 - T4F Performed By: #### L 503.6150, L509.1000, L506.1000, L100.0500, L500.4050, L501.9520, L506.0400 ####[facility] [address] [place], [address] Creatinine [Mass/Vol] 1.03 mg/dL High 0.55-1.02 [facility] Comment on above: Order Comment: Order Date: 01/23/24Order Info: 785-1 - CMPOrder Info: 3015-11 - TSHOrder Info: 2497-12 - FEOrder Info: 3023-7 - T4F Result Comment: The validity of the calculated GFR GFRAA in patients over 70 years has not been determined. Clinical correlation is essential. Performed By: #### L 503.6150, L509.1000, L506.1000, L100.0500, L500.4050, L501.9520, L506.0400 ####[facility] [address] [place], [address] EST GFR - AA 67 mL/min Normal >60 [facility] Comment on above: Order Comment: Order Date: 01/23/24Order Info: 86-1 - CMPOrder Info: 3 - TSHOrder Info: [id number] - FEOrder Info: 3024-7 - T4F Result Comment: Afri can [place] GFR Calc Performed By: #### L 503.6150, L509.1000, L506.1000, L100.0500, L500.4050, L501.9520, L506.0400 ####[facility] [address] [place], [address] GAP 7 Normal 5-15 [facility] Comment on above: Order Comment: Order Date: 01/23/24Order Info: 86-1 - CMPOrder Info: 3 - TSHOrder Info: [id number] - FEOrder Info: 7 - T4F Performed By: #### L 503.6150, L509.1000, L506.1000, L100.0500, L500.4050, L501.9520, L506.0400 ####[facility] [address] [place], [address] GFR/1.73 sq M.predicted among non-blacks MDRD (S/P/Bld) [Vol rate/Area] 56 mL/min/{1.73_m2} Low >60 [facility] Comment on above: Order Comment: Order Date: 01/23/24Order Info: 785-1 - CMPOrder Info: 3015-11 - TSHOrder Info: 2497-12 - FEOrder Info: 7 - T4F Result Comment: Non- GFR Calc Performed By: #### L 503.6150, L509.1000, L506.1000, L100.0500, L500.4050, L501.9520, L506.0400 ####[facility] [address] [place], [address] Globulin (S) [Mass/Vol] 3.4 g/dL Normal 2.2-4.[address] [facility] Comment on above: Order Comment: Order Date: 01/23/24Order Info: 86-1 - CMPOrder Info: 3 - TSHOrder Info: [id number] - FEOrder Info: 3027 - T4F Performed By: #### L 503.6150, L509.1000, L506.1000, L100.0500, L500.4050, L501.9520, L506.0400 ####[facility] [address] [place], [address] Glucose [Mass/Vol] 77 mg/dL Normal 74-106 [facility] Comment on above: Order Comment: Order Date: 01/23/24Order Info: 0786-1 - CMPOrder Info: 3015-3 - TSHOrder Info: 24904-08 - FEOrder Info: 3024-7 - T4F Performed By: #### L 503.6150, L509.1000, L506.1000, L100.0500, L500.4050, L501.9520, L506.0400 ####[facility] [address] [place], [address] Potassium [Moles/Vol] 3.8 mmol/L Normal 3.5-5.1 [facility] Comment on above: Order Comment: Order Date: 01/23/24Order Info: 785-1 - CMPOrder Info: 3 - TSHOrder Info: 2497-12 - FEOrder Info: 3024-7 - T4F Performed By: #### L 503.6150, L509.1000, L506.1000, L100.0500, L500.4050, L501.9520, L506.0400 ####[facility] [address] [place], [address] Sodium [Moles/Vol] 139 mmol/L Normal 136-145 [facility] Comment on above: Order Comment: Order Date: 01/23/24Order Info: 86-1 - CMPOrder Info: 3 - TSHOrder Info: 24904-08 - FEOrder Info: 3024-7 - T4F Performed By: #### L 503.6150, L509.1000, L506.1000, L100.0500, L500.4050, L501.9520, L506.0400 ####[facility] [address] [place], [address] T PROT 7.0 g/dL Normal 6.4-8.2 [facility] Comment on above: Order Comment: Order Date: 01/23/24Order Info: 0786-1 - CMPOrder Info: 6-3 - TSHOrder Info: 2498-4 - FEOrder Info: 3024-7 - T4F Performed By: #### L 503.6150, L509.1000, L506.1000, L100.0500, L500.4050, L501.9520, L506.0400 ####[facility] [address] [place], [address] Urea nitrogen [Mass/Vol] 12 mg/dL Normal 7-18 [facility] Comment on above: Order Comment: Order Date: 01/23/24Order Info: 07-1 - CMPOrder Info: 3 - TSHOrder Info: 2494 - FEOrder Info: 3024-7 - T4F Performed By: #### L 503.6150, L509.1000, L506.1000, L100.0500, L500.4050, L501.9520, L506.0400 ####[facility] [address] [place], [address] Ironon 05-10-2024 Iron [Mass/Vol] 61 ug/dL Normal 50-170 [facility] Comment on above: Order Comment: Order Date: 01/23/24Order Info: 0786-1 - CMPOrder Info: 6-3 - TSHOrder Info: 2498-4 - FEOrder Info: 3024-7 - T4F Performed By: #### L 503.6150, L509.1000, L506.1000, L100.0500, L500.4050, L501.9520, L506.0400 ####[facility] [address] [place], [address] PTHINon 05-10-2024 PTH 52.1 pg/mL Normal 18.4-80.1 [facility] Comment on above: Order Comment: Order Date: 01/23/24Order Info: 0565-1 - PTHIN Performed By: #### L 503.6150, L509.1000, L506.1000, L100.0500, L500.4050, L501.9520, L506.0400 ####[facility] [address] [place], [address] SCRN MAMM (CAD)W/MYLENE BILATo n 05-10-2024 SCRN MAMM (CAD)W/MYLENE BILAT [facility] Imaging Services [address] [place], [place] [address] SCRN MAMM (CAD)W/MYLENE BILAT MR#: [id number] Acct: [id number] Name: EVELIN SANDHU Rep #: [id number] : 1950 F 73 From: Asa haines MD PCP: Dr. Neil Coronado MD Status: [facility] Study: SCRN MAMM (CAD)W/MYLENE BILAT Date of Exam: 01/26 Exam# [id number] Ordering Dr: Neil Coronado [id number] MAMMOGRAPHY - BILATERAL SCREENING REASON FOR EXAM: Female, 73 years old. Routine annual screening examination. PERTINENT HISTORY: Mother with breast cancer. Grandmother with breast cancer. Aunt with breast cancer. TECHNIQUE: Digital bilateral breast mylene (3D mammographic acquisition) in the CC and MLO projections. 2-D mediolateral oblique (MLO) and craniocaudad (CC) views of both breasts were obtained. CAD: Full Field Digital Mammography with Computer Added Detection was performed. COMPARISON: Comparison is made with prior study dated February 25, 2023 and January 28, 2022. FINDINGS: Breast Composition: There are scattered areas of fibroglandular density. There are no dominant masses or suspicious calcifications. No other significant abnormalities are identified. There has been no significant change since the prior study. BI/SCRN MAMM (CAD)W/MYLENE BILAT IMPRESSION: Stable bilateral screening mammogram. Yearly follow-up mammogram recommended. (A) ASSESSMENT CATEGORY: BIRADS Category 1: Negative. A letter regarding these results will be sent to the patient by the facility within 30 days. Approximately 10% of breast cancers are not detected by mammography. A normal mammogram should not delay biopsy of a clinically suspicious abnormality. [id number] Electronically Signed: Asa Damon MD at 14:58 EDT Reading Location ID and State: [address] [place] [address] , Service support , CC: Dr. Neil Coronado MD Labor Gang Supervisor: Signed Normal [facility] T4 Free Directon 05-10-2024 T4 FREE DIRECT 1.12 ng/dL Normal 0.76-1.46 [facility] Comment on above: Order Comment: Order Date: 01/23/24Order Info: 0786-1 - CMPOrder Info: 3016-3 - TSHOrder Info: [id number] - FEOrder Info: 3024-7 - T4F Performed By: #### L 503.6150, L509.1000, L506.1000, L100.0500, L500.4050, L501.9520, L506.0400 ####[facility] [address] [place], [address] Thyroid Stim Hormone (TSH)on 05-10-2024 TSH 0.845 uIU/mL Normal 0.358-3.740 [facility] Comment on above: Order Comment: Order Date: 01/23/24Order Info: 0786-1 - CMPOrder Info: 3016-3 - TSHOrder Info: 24904-08 - FEOrder Info: 3024-7 - T4F Performed By: #### L 503.6150, L509.1000, L506.1000, L100.0500, L500.4050, L501.9520, L506.0400 ####[facility] [address] [place], [address] Vitamin D,25 Hydroxyon 05-10 Vitamin D 25-OH 43.2 ng/mL Normal [facility] Comment on above: Order Comment: Order Date: 01/23/24Order Info: 40015-5 - VITD25 Result Comment: Morena min D 25(OH) Status Range Deficiency <20 ng/mL (50nmol/L) Insufficiency 20 - 30 ng/mL (50 - 75 nmol/L) Sufficiency 30 - 100 ng/mL (75 - 250 nmol/L) Toxicity >100 ng/mL (>250 nmol/L) Performed By: #### L 503.6150, L509.1000, L506.1000, L100.0500, L500.4050, L501.9520, L506.0400 ####[facility] [address] [place], [address] Basophil percentageOrdered B y: Gilberto Coronado on 09-29-2023 Chloride [Moles/Vol] 105 mmol/L 98-107 [facility] Glucose [Mass/Vol] 89 mg/dL 74-106 [facility] Potassium [Moles/Vol] 3.9 mmol/L 3.5-5.1 [facility] Sodium [Moles/Vol] 137 mmol/L 136-145 [facility] Laboratory - Chemistry and C hemistry - challengeOrdered By: Gilberto Coronado on 09-29-2023 CO2 [Moles/Vol] 26.0 mmol/L 21.0-32.0 [facility] Urea nitrogen/Creatinine [Mass ratio] 24.0 mg/mg 10- [facility] No Panel InformationOrdered By: Gilberto Coronado on 09-29-2023 Estimated GFR (MDRD) Amer 67 mL/min >60 [facility] Comment on above: GFR Calc Estimated GFR (MDRD) Non-Af Amer 55 mL/min >60 [facility] Comment on above: Non- GFR Calc Vitamin D 25-Hydroxy 74.1 ng/mL [facility] Comment on above: Vitamin D 25(OH) Sta tus Range Deficiency <20 ng/mL (50nmol/L) Insufficiency 20 - 30 ng/mL (50 - 75 nmol/L) Sufficiency 30 - 100 ng/mL (75 - 250 nmol/L) Toxicity >100 ng/mL (>250 nmol/L) Serum or plasma calcium sunshine urement (mass/volume)Ordered By: Gilberto Coronado on 09-29-2023 Calcium [Mass/Vol] 9.8 mg/dL 8.5-10.1 [facility] Serum or plasma creatinine m easurement (mass/volume)Ordered By: Gilberto Coronado on 09-29-2023 Creatinine [Mass/Vol] 1.04 mg/dL 0.55-1.02 [facility] Comment on above: The validity of the calculated GFR & GFRAA in patients over 70 years has not been determined. Clinical correlation is essential. Serum or plasma thyroid stim ulating hormone (TSH) measurement (units/volume)Ordered By: Gilberto Coronado on 09-29-2023 TSH Qn 0.35 uIU/mL 0.358-3.74 [facility] Serum or plasma urea nitroge n measurement (mass/volume)Ordered By: Gilberto Coronado on 09-29-2023 Urea nitrogen [Mass/Vol] 25 mg/dL 7-18 [facility] Thin prep Papanicolaou smear with manual screeningOrdered By: Gilberto Coronado on 09-29-2023 Thin prep Papanicolaou smear with manual screening 6 5-15 [facility] Basophil percentageOrdered B y: Dr. Coronado on 02-17-2023 Bilirubin [Mass/Vol] 0.30 mg/dL 0.20-1.00 [facility] Comment on above: For patients on eltr ombopag therapy, use of Dimension [place] TBIL is not recommended. Chloride [Moles/Vol] 108 mmol/L 98-107 [facility] Cholesterol [Mass/Vol] 182 mg/dL <200 [facility] Comment on above: <200 mg/dL Desirable 200-240 mg/dL Borderline >240 mg/dL High Risk Glucose [Mass/Vol] 87 mg/dL 74-106 [facility] Potassium [Moles/Vol] 4.0 mmol/L 3.5-5.1 [facility] Protein [Mass/Vol] 7.3 g/dL 6.4-8.2 [facility] Sodium [Moles/Vol] 138 mmol/L 136-145 [facility] Triglyceride [Mass/Vol] 185 mg/dL <199 [facility] Comment on above: The drugs N-Acetylcy steine and Metamizole may falsely depress this assay.Serum Triglycerides Reference Interval Normal <150 mg/dL Borderline high 150 - 199 mg/dL High 200 - 499 mg/dL Very High > or = 500 mg/dL Laboratory - Chemistry and C hemistry - challengeOrdered By: Dr. Coronado on 02-17-2023 ALP [Catalytic activity/Vol] 64 U/L 45-117 [facility] ALT [Catalytic activity/Vol] 27 U/L 13-56 [facility] CO2 [Moles/Vol] 25.0 mmol/L 21.0-32.0 [facility] Globulin (S) [Mass/Vol] 3.8 g/dL 2.2-4.2 [facility] Urea nitrogen/Creatinine [Mass ratio] 18.0 mg/mg 10-20 [facility] No Panel InformationOrdered By: Dr. Coronado on 02-17-2023 Estimated GFR (MDRD) Amer 70 mL/min >60 [facility] Comment on above: GFR Calc Estimated GFR (MDRD) Non-Af Amer 58 mL/min >60 [facility] Comment on above: Non- GFR Calc Thyroid Stimulating Hormone (TSH) 0.60 uIU/mL 0.358-3.74 [facility] Vitamin D 25-Hydroxy 85.6 ng/mL [facility] Comment on above: Vitamin D 25(OH) Sta tus Range Deficiency <20 ng/mL (50nmol/L) Insufficiency 20 - 30 ng/mL (50 - 75 nmol/L) Sufficiency 30 - 100 ng/mL (75 - 250 nmol/L) Toxicity >100 ng/mL (>250 nmol/L) Serum or plasma albumin sunshine urement (mass/volume)Ordered By: Dr. Coronado on 02-17-2023 Albumin [Mass/Vol] 3.5 g/dL 3.2-5.0 [facility] Serum or plasma albumin/glob ulin mass ratioOrdered By: Dr. Coronado on 02-17-2023 Albumin/Globulin [Mass ratio] 0.9 {ratio} 0.9-2.4 [facility] Serum or plasma calcium sunshine urement (mass/volume)Ordered By: Dr. Coronado on 02-17-2023 Calcium [Mass/Vol] 9.6 mg/dL 8.5-10.1 [facility] Serum or plasma cholesterol in HDL measurement (mass/volume)Ordered By: Dr. Coronado on 02-17-2023 Cholesterol in HDL [Mass/Vol] 61 mg/dL >40 [facility] Comment on above: The drugs N-Acetylcy steine and Metamizole may falsely depress this assay. Reference Range HDL <40 mg/dL Low HDL Cholesterol HDL >or= 60 mg/dL High HDL Cholesterol Serum or plasma cholesterol in VLDL measurement (mass/volume)Ordered By: Dr. Coronado on 02-17-2023 Cholesterol in VLDL [Mass/Vol] 37 mg/dL 5-40 [facility] Serum or plasma creatinine m easurement (mass/volume)Ordered By: Dr. Coronado on 02-17-2023 Creatinine [Mass/Vol] 1.00 mg/dL 0.55-1.02 [facility] Comment on above: The validity of the calculated GFR & GFRAA in patients over 70 years has not been determined. Clinical correlation is essential. Serum or plasma low density lipoprotein (LDL) cholesterol measurement (mass/volume)Ordered By: Dr. Coronado on 02-17-2023 Cholesterol in LDL [Mass/Vol] 84 mg/dL 0-130 [facility] Serum or plasma urea nitroge n measurement (mass/volume)Ordered By: Dr. Coronado on 02-17-2023 Urea nitrogen [Mass/Vol] 18 mg/dL 7-18 [facility] Thin prep Papanicolaou smear with manual screeningOrdered By: Dr. Coronado on 02-17-2023 Thin prep Papanicolaou smear with manual screening 26 U/L 15-37 [facility] Thin prep Papanicolaou smear with manual screening 5 5-15 [facility] Laboratory - Chemistry and C hemistry - challengeon 06-15-2022 Magnesium [Mass/Vol] 2.1 mg/dL 1.6-2.6 [facility] Work Phone: No Panel Informationon 06-15 Ionized Calcium 5.2 mg/dL 4.5-5.6 [facility] Work Phone: Comment on above: Performed at: [address] [id number] Director: Anton Yi PhD, Phone: [phone] Vitamin D 25-Hydroxy 76.4 ng/mL [facility] Work Phone: Comment on above: Vitamin D 25(OH) Sta tus Range Deficiency <20 ng/mL (50nmol/L) Insufficiency 20 - 30 ng/mL (50 - 75 nmol/L) Sufficiency 30 - 100 ng/mL (75 - 250 nmol/L) Toxicity >100 ng/mL (>250 nmol/L) Basophil percentageon 2021 Chloride [Moles/Vol] 107 mmol/L 98-107 [facility] Work Phone: Cholesterol [Mass/Vol] 157 mg/dL <200 [facility] Work Phone: [phone] Comment on above: <200 mg/dL Desirable 200-240 mg/dL Borderline >240 mg/dL High Risk Glucose [Mass/Vol] 99 mg/dL 74-106 [facility] Work Phone: [phone] Potassium [Moles/Vol] 3.9 mmol/L 3.5-5.1 [facility] Work Phone: [phone] Sodium [Moles/Vol] 140 mmol/L 136-145 [facility] Work Phone: [phone] Triglyceride [Mass/Vol] 148 mg/dL <[address] [facility] Work Phone: [phone] Comment on above: The drugs N-Acetylcy steine and Metamizole may falsely depress this assay.Serum Triglycerides Reference Interval Normal <150 mg/dL Borderline high 150 - 199 mg/dL High 200 - 499 mg/dL Very High > or = 500 mg/dL Laboratory - Chemistry and C hemistry - challengeon 11-11-2021 CO2 [Moles/Vol] 29.0 mmol/L 21.0-32.0 [facility] Work Phone: Urea nitrogen/Creatinine [Mass ratio] 18.3 mg/mg 10-20 [facility] Work Phone: No Panel Informationon 11-11 Estimated GFR (MDRD) Amer 67 mL/min >60 [facility] Work Phone: Comment on above: GFR Calc Estimated GFR (MDRD) Non-Af Amer 55 mL/min >60 [facility] Work Phone: Comment on above: Non- GFR Calc Thyroid Stimulating Hormone (TSH) 0.83 uIU/mL 0.358-3.74 [facility] Work Phone: Serum or plasma calcium sunshine urement (mass/volume)on 11-11-2021 Calcium [Mass/Vol] 9.6 mg/dL 8.5-10.1 [facility] Work Phone: Serum or plasma cholesterol in HDL measurement (mass/volume)on 11-11-2021 Cholesterol in HDL [Mass/Vol] 54 mg/dL >40 [facility] Work Phone: Comment on above: The drugs N-Acetylcy steine and Metamizole may falsely depress this assay. Reference Range HDL <40 mg/dL Low HDL Cholesterol HDL >or= 60 mg/dL High HDL Cholesterol Serum or plasma cholesterol in VLDL measurement (mass/volume)on 11-11-2021 Cholesterol in VLDL [Mass/Vol] 30 mg/dL 5-40 [facility] Work Phone: Serum or plasma creatinine m easurement (mass/volume)on 11-11-2021 Creatinine [Mass/Vol] 1.04 mg/dL 0.55-1.02 [facility] Work Phone: Comment on above: The validity of the calculated GFR & GFRAA in patients over 70 years has not been determined. Clinical correlation is essential. Serum or plasma low density lipoprotein (LDL) cholesterol measurement (mass/volume)on 11-11-2021 Cholesterol in LDL [Mass/Vol] 73 mg/dL 0-130 [facility] Work Phone: Serum or plasma urea nitroge n measurement (mass/volume)on 11-11-2021 Urea nitrogen [Mass/Vol] 19 mg/dL 7-18 [facility] Work Phone: Thin prep Papanicolaou smear with manual screeningon 11-11-2021 Thin prep Papanicolaou smear with manual screening 4 5-15 [facility] Work Phone: Vital Signs Date Time Vital Sign Value Performing Clinician Faci lity 01-23-2025 16:45-0400 Diastolic blood pressure 70 mm[Hg] Dr. Neil Coronado MD Work Phone: [facility] 01-23-2025 16:45-0400 Heart rate 66 /min Dr. Neil Coronado MD Work Phone: [facility] 01-23-2025 16:45-0400 Inhaled oxygen flow rate 4 L/min Dr. Neil Coronado MD Work Phone: [facility] 01-23-2025 16:45-0400 Respiratory rate 21 /min Dr. Neil Coronado MD Work Phone: [facility] 01-23-2025 16:45-0400 SaO2% (BldA) [Mass fraction] 100 % Dr. Neil Coronado MD Work Phone: [facility] 01-23-2025 16:45-0400 Systolic blood pressure 152 mm[Hg] Dr. Neil Coronado MD Work Phone: [facility] 01-23-2025 15:47-0400 Body temperature 97.4 [degF] Dr. Neil Coronado MD Work Phone: [facility] 01-23-2025 15:47-0400 Inhaled oxygen concentration 0.6 % Dr. Neil Coronado MD Work Phone: [facility] 01-23-2025 09:16-0400 Body height 142.[address] Neil Coronado MD Work Phone: [facility] 01-23-2025 09:16-0400 Body mass index (BMI) [Ratio] 37 kg/m2 Dr. Neil Coronado MD Work Phone: [facility] 01-23-2025 09:16-0400 Body weight [address] Neil Coronado MD Work Phone: [facility] 11-29-2024 13:54-0400 Body height 142.[address] Neil Coronado MD Work Phone: [facility] 11-29-2024 13:54-0400 Body mass index (BMI) [Ratio] 37 kg/m2 Dr. Neil Coronado MD Work Phone: [facility] 11-29-2024 13:54-0400 Body weight 74.[address] Neil Coronado MD Work Phone: [facility] 01-28-2022 14:34-0400 Body height 142.24 cm [facility] Work Phone: Encounters Encounter Date Encounter Type Care Provider Facility Start: 02-05-2025 ambulatory Neil [facility]andes [facility]ity:[facility] Start: 02-03-2025 Encounter for other preprocedural examination [facility] Start: 01-23-2025 Encounter for other preprocedural examination [facility] Start: 01-23-2025 ambulatory [facility] Start: 01-23-2025 End: 01-25-2025 Evaluation and management of inpatient [facility] Facility:[facility] Start: 01-23-2025 Non-patient / Non-visit Dr. Shaq ha MD -[facility] Start: 01-23-2025 Evaluation and management of inpatient Dr. Shaq Chandra MD -[facility] Work Phone: Start: 01-23-2025 ambulatory [facility] Facility:[facility] Start: 01-17-2025 End: 01-17-[address] Shaq Chandra MD -[facility] Work Phone: Start: 01-17-2025 End: 01-17-[address] Neil Coronado MD Work Phone: [facility] Work Phone: Start: 01-16-2025 End: 01-16-[address] Neil Coronado MD Work Phone: [facility] Work Phone: Start: 01-16-2025 End: 01-16-[address] Neil Coronado MD -[facility] Work Phone: Start: 01-16-2025 End: 01-16-2025 ambulatory [facility] Facility:[facility] Start: 11-29-2024 End: 11-29-[address] Shaq Chandra MD -[facility] Work Phone: Start: 11-29-2024 End: 11-29-2024 ambulatory [facility] Facility:[facility] Start: 10-17-2024 End: 10-17-[address] Robb Combs MD -[facility] Work Phone: Start: 10-17-2024 End: 10-17-2024 [facility] Start: 05-11-2024 ambulatory Neil Coronado Faci lity:[facility] Start: 05-10-2024 End: 05-10-2024 ambulatory [facility] Facility:[facility] Start: 09-29-2023 End: 09-29-2023 ambulatory [facility] Work Phone: Start: 09-29-2023 End: 09-29-2023 Patient encounter procedure [facility] Start: 02-25-2023 End: 02-25-2023 ambulatory [facility] Work Phone: Start: 02-25-2023 End: 02-25-2023 Patient encounter procedure [facility]-Outpatient Breast Imaging Work Phone: Start: 02-17-2023 End: 02-17-2023 ambulatory [facility] Work Phone: Start: 02-17-2023 End: 02-17-2023 [facility] Start: 02-07-2023 End: 02-07-2023 [facility] Start: 06-15-2022 End: 06-15-2022 ambulatory [facility] Work Phone: Start: 06-15-2022 End: 06-15-2022 Patient encounter procedure [facility] Start: 01-28-2022 End: 01-28-2022 Patient encounter procedure [facility]-Outpatient Bone Densitometry Start: 11-16-2021 End: 11-16-2021 Patient [facility] Start: 11-11-2021 End: 11-11-2021 [facility] Start: 10-22-2021 End: 10-22-2021 Discharged Recurring [facility]-Physical Therapy Start: 10-22-2021 Registered [facility] Date Procedure Procedure Detail Performing Clinician Start: 01-23-2025 Fluoroscopic guidance Franchesca Coronado MD Work Phone: Start: 01-23-[address] Shea Coronado MD Work Phone: Start: 01-16-2025 Hepatitis A virus an tibody, total measurement Dr. Neil Coronado MD Work Phone: Comment on above: Comment: The HAV tot al antibody assay detects both IgG andIgM but does not differentiate between them. A negativeresult suggests susceptibility to infection. A positiveresult could be due to vaccination, previously resolvedinfection or active infection. Testing for HAV IgM shouldbe performed if active HAV infection is suspected. Labcorpoffers profiles that will automatically reflex positive HAVtotal antibody results to IgM (e.g., panel #[id number] HAVAntibody w/ Rfx).Performed at: [address] [id number] Director: Anton Yi PhD, Phone: [phone] Start: 01-16-2025 Methicillin resistan t Staphylococcus aureus screening test Dr. Neil Coronado MD Work Phone: Start: 01-16-2025 Hepatitis C antibody measurement Dr. Neil Coronado MD Work Phone: Comment on above: Reactive: Presumptiv e evidence of antibodies to HCV. Follow CDC recommendations for supplemental testing.Non-Reactive: Antibodies to HCV were not detected; does not exclude the possibility of exposure to HCVReactive Results are presumptive evidence of antibodies to HCV. Follow CDC recommendations for supplemental testing.Order confirmation testing: HCV Quant by PCR testing - HCVPCR #[id number] Non Reactive: < 0.8 Equivocal: >/= 0.8 to < 1.0 Reactive: >/= 1.0The CDC requires that a reactive/equivocal HCV antibody result be sent out for confirmation. HCV Quant by PCR testing. Start: 11-29-2024 X-ray of lumbosacral spine Dr. Neil Coronado MD Work Phone: Start: 10-17-2024 MRI of lumbar spine Dr. Neil Coronado MD Work Phone: Start: 02-25-2023 Screening mammography Start: 02-17-2023 Plain X-ray of shoulder Start: 02-07-2023 Plain x-ray of humerus Start: 01-28-2022 Dual energy X-ray absorptiometry Start: 01-28-2022 Screening mammography Start: 11-16-2021 Plain X-ray of shoulder Plan of Treatment Date Care Activity Detail Author Start: 01-24-2025 Catheterization of vein [facility] Start: 01-24-2025 Lumbar Spine 2 or 3 Views Lumb ar Spine 2 or 3 Views [facility] Start: 01-24-2025 XR Lumbar spine 2 or 3 Views [facility] Start: 01-24-2025 Complete blood count [facility] Start: 01-23-2025 Application of device [facility] Start: 01-23-2025 End: 01-23-2025 [facility] Start: 01-23-2025 Consultation [facility] Start: 01-23-2025 Provision of activit y privileges [facility] Start: 01-23-2025 Referral to occupati onal therapist [facility] Start: 01-23-2025 Admission procedure [facility] Start: 01-23-2025 Assessment of risk o f venous thromboembolism [facility] Start: 01-23-2025 Following clinical p athway protocol [facility] Start: 01-23-2025 Incentive spirometry [facility] Start: 01-23-2025 Introduction of urin eveline catheter [facility] Start: 01-23-2025 Measuring intake and output [facility] Start: 01-23-2025 Neurovascular assessment [facility] Start: 01-23-2025 Oxygen therapy [facility] Start: 01-23-2025 Patient education [facility] Start: 01-23-2025 Referral to service [facility] Start: 01-23-2025 Taking patient vital signs [facility] Start: 01-23-2025 Verification routine [facility] Start: 01-23-2025 X-ray of lumbar spin e, two or three views Lumbar Spine 2 or 3 Views [facility] Start: 01-23-2025 XR Lumbar spine 2 or 3 Views [facility] Start: 01-16-2025 Nasal Screen MRSA/MSSA Nasal S creen MRSA/MSSA [facility] Start: 01-28-2022 Dual energy X-ray absorptiometry Dexa Bone Density Study [facility] Work Phone: Anion gap in Serum or Plasma [facility] BUN/Creatinine ratio [facility] Calcium [Mass/volume ] in Serum or Plasma [facility] Carbon dioxide, tota l [Moles/volume] in Central venous blood [facility] Creatinine [Mass/vol ume] in Serum or Plasma [facility] Erythrocyte mean cor puscular volume determination [facility] Glucose [Mass/volume ] in Serum or Plasma [facility] Hematocrit [Volume F raction] of Blood [facility] Hemoglobin [Mass/vol ume] in Blood [facility] Hepatitis A virus Ab [Presence] in Serum [facility] Leukocytes [#/volume ] in Blood [facility] Mean corpuscular hem oglobin concentration determination [facility] Mean corpuscular hem oglobin determination [facility] Measurement of renal function [facility] Methicillin resistan t Staphylococcus aureus screening test [facility] Patient referral [facility] Work Phone: Platelets [#/volume] in Blood [facility] Potassium measurement [facility] Red blood cell count [facility] Red cell distributio n width determination [facility] Serum chloride measurement [facility] Sodium measurement [facility] Urea nitrogen [Mass/ volume] in Serum or Plasma [facility] Payers Date Payer Category Payer Medicare [id number] 2024 Self-pay [id number] 2024 Private Health Insurance [id number] 2016 Unknown [id number] 2014 Medicare [id number] Medicare [id number] Unknown [id number] 2.16.8 [id number] Unknown [id number] 2.16.8 [id number] Unknown [id number] 2.16.8 [id number] Unknown [id number] 2.16.8 [id number] Unknown [id number] 2.16.8 [id number] Unknown [id number] 2.16.8 [id number] Unknown [id number] 2.16.8 [id number] Unknown [id number] 2.16.8 [id number] Unknown [id number] 2.16.8 [id number] Unknown [id number] 2.16.8 [id number] Unknown [id number] 2.16.8 [id number] Unknown [id number] 2.16.8 [id number] Unknown [id number] 2.16.8 [id number] Unknown [id number] 2.16.8 [id number] Social History Date Type Detail Facility Start: 04-24-2021 End: 04-24-2021 Tobacco smoking status NHIS Unknown if ever smoked [facility] Start: 1950 Sex Assigned At Female [facility] Start: 04-24-2021 End: 01-22-2025 Tobacco smoking status NHIS Never smoked tobacco (finding) [facility] Goals Date Patient Goal Desired Activity /State Mental Status Date Assessment Result Facility 01-23-2025 Cognitive function Voice/Name [facility] Work Phone: Clinical Note 01-23-2025 Note Date & Type Note Facility 01-23-2025 Note [facility] Medical Records Department [address] [place] [address] History Physical Exam 01/23/25 1037 MR#: [id number] Acct: [id number] Name: EVELIN SANDHU Rep #: [id number] : 1950 74 From: Shaq Chandra MD PCP: Dr. Neil Coronado MD Status:ADM IN [facility] and Physical Date of Admission: 01/23/25 MR#: [id number] Acct: [id number] Name: EVELIN SANDHU Rep #: [id number] : 1950 Provider: Dr. Shaq Chandra MD Age/Sex: 74/F Location: [facility] [place] Status: Signed Intake Vital Signs 11/29/2512:54 Height 4 ft 8 in Weight: 165 lb BMI 37.0 Intake Visit Reasons: lumbar spine Chief Complaint: Lumbar spine pain Allergies codeine Allergy (Verified 11/29/24 13:58) Rashbismuth subsalicylate (From Pepto-Bismol) Adverse Reaction (Verified 11/29/24 13:58) Nausea/Vom/Diarrheadiphenhydramine HCl (From Benadryl) Adverse Reaction (Verified 11/29/24 13:58) Nausea/Vom/Diarrheasimvastatin (From Zocor) Adverse Reaction (Verified 11/29/24 13:58) Nausea Medications ???Medication ???Instructions ???Recorded ???Confirmed ???Type albuterol sulfate 90 mcg/actuation 2 puff IH PRN PRN Asthma 11/04/16 01/17/25 History aerosol inhaler ascorbic acid (vitamin C) 500 mg 500 mg PO DAILY@0800 11/04/16 01/17/25 History tablet atorvastatin 20 mg tablet 20 mg PO QHS 11/04/16 01/17/25 History cholecalciferol (vitamin D3) 50 6,000 unit PO DAILY 11/04/16 01/17/25 History mcg (2,000 unit) capsule citalopram 40 mg tablet 20 mg PO DAILY anxiety 11/04/16 01/17/25 History fish oil-dha-epa 1,200 mg-144 1 ea PO DAILY 11/04/16 01/17/25 History mg-216 mg capsule fluticasone furoate 100 1 puff IH DAILY 11/04/16 01/17/25 History mcg-vilanterol 25 mcg/dose inhalation powder levothyroxine 112 mcg tablet 112 mcg PO DAILY thyroid 11/04/16 01/17/25 History melatonin 5 mg-pyridoxine (vitamin 1 ea PO QHS 11/04/16 01/17/25 History B6) 1 mg tablet hoheadxqffmy-yxfevawf-eqyrebr-folic 1 ea PO DAILY 11/04/16 01/17/25 History acid 400 mcg-vit K1 20 mcg tablet venlafaxine 37.5 mg 37.5 mg PO QHS 11/04/16 01/17/25 History tablet,extended release 24 hr vitamin E 268 mg (400 unit) capsule 400 unit PO DAILY 11/04/16 01/17/25 History calcium 500 mg (as carbonate)-vit 2 tab PO QHS 11/08/16 01/17/25 History D3 10 mcg (400 unit) chewable tablet gabapentin 100 mg capsule 100 mg PO TID nerve pain 03/16/21 01/17/25 History losartan 100 mg tablet (Cozaar) 100 mg PO DAILY #30 tabs 03/17/21 01/17/25 Rx nystatin 100,000 unit/gram topical 1 applic topical BID #30 grams 03/17/21 01/17/25 R x powder famotidine 40 mg tablet 40 mg PO DAILY 04/24/21 01/17/25 History Have you fallen in the past year?: No PFSH Medical History Obesity Hyperlipidemia Patent foramen ovale Essential hypertension History of non-ST elevation myocardial infarction (NSTEMI) (03/16/21) Osteoarthritis Osteoporosis Non-smoker Degenerative lumbar spinal stenosis Asthma Anxiety Depression Chronic pain GERD (gastroesophageal reflux disease) Screening for colon cancer Surgical History History of left heart catheterization (03/17/21) H/O thyroidectomy History of appendectomy Social History Smoking Status: Never smoker HPI lumbar spine Details: This documentation accurately reflects the service provided and the decisions made by me, Dr. Shaq Chandra MD 01/17/25 1100. Part of today???s visit was documented by Jackeline MAZARIEGOS, acting as scribe. EVELIN SANDHU is a 74 year old F here today for preop, lumbar spine, dos 01/23/25. She continues to have low back pain with difficulty walking distances. She uses a cane for short distances. She ta kes [id number] calcium and vitamin D supplementation. 11/29/24: EVELIN SANDHU is a 74 year old F here today for lumbar spine pain. This started in June 2024. Patient schwartz ambulate with a cane as she is unable to use a walker in her mobile home. Patient woke up with lower back pain one morning. She effie to get out of the chair and fell. The pain feels like there are a bunch of needles poking her. It hurts worse in the lower back and in the gluteus. Sometimes she will get lower back pain and down the back of both legs. Dr. Combs has been doing back injections since she was diagnosed with spinal stenosis. The last shot she got was in 07/31/2024 only gave her 1 day of relief, the injection before that one gave her relief for 2 months. She has been receiving injections since 2012. Denies any siobhan (more content not included)... [facility] Evaluation note 11-29-2024 Note Date & Type Note Facility 11-29-2024 Evaluation note Diagnosis Onset Date Resolution Balance problem acute November 1:44pm Lumbar scoliosis acute November 292024 1:44pm Osteopenia determined by x-ray acute November 29, 2024 1:44pm Spinal stenosis of lumbar region with neurogenic claudication acute November 292024 1:44pm Spondylolisthesis, lumbar region acute November 29, 2024 1:44pm Synovial cyst of lumbar facet joint acute November 29, 2024 1:44pm [facility] Work Phone: Evaluation note 11-29-2024 Note Date & Type Note Facility 11-29-2024 Evaluation note Diagnosis Onset Date Resolution Balance problem acute November 1:44pm Lumbar scoliosis acute November 292024 1:44pm Osteopenia determined by x-ray acute November 29, 2024 1:44pm Spinal stenosis of lumbar region with neurogenic claudication acute November 292024 1:44pm Spondylolisthesis, lumbar region acute November 29, 2024 1:44pm Synovial cyst of lumbar facet joint acute November 29, 2024 1:44pm Balance problem acute January 17, 2025 10:57am Lumbar scoliosis acute January 10:57am Osteopenia determined by x-ray acute January 17, 2025 10:57am Spinal stenosis of lumbar region with neurogenic claudication acute January 10:57am Spondylolisthesis, lumbar region acute January 17, 2025 10:57am Synovial cyst of lumbar facet joint acute January 17, 2025 10:57am [facility] Work Phone: Evaluation note Note Date & Type Note Facility Evaluation note No assessment information availa ble [facility] Work Phone: Reason for referral (narrative) Note Date & Type Note Facility Reason for referral (narrative) No reason for referral information available [facility] Work Phone: Chief Complaint and Reason for Visit Chief Complaint BALANCE/ RX HERE EORDER SCREENING Chief Complaint EORDER Chief Complaint RIGHT ARM PAIN EORDER- LABS AND XRAY-fall Chief Complaint RIGHT ARM PAIN EORDER- LABS AND XRAY-fall SCREENING Chief Complaint Admit Date LUMBAR RADICULOPATHY October 17, 2024 6:32am LUMBAR SPINE November 29, 2024 1:4 4pm RM 4 November 29, 2024 2:1 8pm EORDERS- COPY DR. CHANDRA January 16, 2025 1 :03pm lumbar spine January 17, 2025 10:57 am Reason for Visit Admit Date Balance problem November 29, 2024 1:4 4pm Lumbar scoliosis November 29, 2024 1:4 4pm Osteopenia determined by x-ray November 1:44pm Spinal stenosis of lumbar region with ne urogenic claudication November 29, 2024 1:44pm Spondylolisthesis, lumbar region November 042024 1:44pm Synovial cyst of lumbar facet joint [facility] 2024 1:44pm Chief Complaint Admit Date LUMBAR RADICULOPATHY October 17, 2024 6:32am LUMBAR SPINE November 29, 2024 1:4 4pm RM 4 November 29, 2024 2:1 8pm EORDERS- COPY DR. CHANDRA January 16, 2025 1 :03pm lumbar spine January 17, 2025 10:57 am 360 lumbar fusion L3-4 and L4-5, possibl e cement a January 23, 2025 8:10am 360 lumbar fusion L3-4 and L4-5, possibl e cement a January 23, 2025 10:37am Reason for Visit Admit Date Balance problem November 29, 2024 1:4 4pm Lumbar scoliosis November 29, 2024 1:4 4pm Osteopenia determined by x-ray November 1:44pm Spinal stenosis of lumbar region with ne urogenic claudication November 29, 2024 1:44pm Spondylolisthesis, lumbar region November 042024 1:44pm Synovial cyst of lumbar facet joint [facility] 2024 1:44pm Balance problem January 17, 2025 10:57 am Lumbar scoliosis January 17, 2025 10:57 am Osteopenia determined by x-ray January 17, 2025 10:57am Spinal stenosis of lumbar region with ne urogenic claudication January 17, 2025 10:57am Spondylolisthesis, lumbar region January 10:57am Synovial cyst of lumbar facet joint January 17, 2025 10:57am Advance Directives No Advanced Directives Records Found Advance Directive Response Recorded Date/ Time Living Will Yes March 16, 2021 7:19pm Power of [employer] Law Clerk Yes March 16 7:19pm Advance Directive Response Recorded Date/ Time Living Will Yes March 16, 2021 6:19pm Power of [employer] Law Clerk Yes March 16 6:19pm Advance Directive Response Recorded Date/ Time Do you have a [facility] Power of [employer] Law Clerk? No January 22, 2025 10:33am Summary Purpose Family History No Family History Records Found Additional Source Comments Goals (unrecognized section and content) Goals may be documented in a n alternate sectionGoals may be documented in an alternate sectionGoals may be documented in an alternate sectionGoals may be documented in an alternate sectionGoals may be documented in an alternate sectionGoals may be documented in an alternate sectionGoals may be documented in an alternate section Care Teams (unrecognized sec tion and content) Team Status: Active Member Role Status Dates Dr. Gilberto Coronado MD Family Provider Active Dr. Gilberto Coronado MD Primary Care Provider Activ e Team Status: Inactive Member Role Status Dates Dr. Gilberto Coronado MD Primary Care Provider Activ e Dr. Steffen Rene MD Attending Provider, Referring Pr ovider Active Team Status: Inactive Member Role Status Dates Dr. Gilberto Coronado MD Primary Care Provider, Attending Provider, Referring Provider Active Team Status: Inactive Member Role Status Dates Dr. Gilberto Coronado MD Primary Care Provider, Atte nding Provider Active Team Status: Active Member Role Status Dates Dr. Neil Coronado MD Primary Care Provider Acti ve Team Status: Inactive Member Role Status Dates Dr. Neil Coronado MD Primary Care Provider Acti ve Start: October 17, 2024 End: October 17, 2024 Dr. Robb Combs MD Attending Provider Active Start: October 17, 2024 End: October 17, 2024 Dr. Robb Combs MD Referring Provider Active Start: October 17, 2024 End: October 17, 2024 Team Status: Inactive Member Role Status Dates Dr. Neil Coronado MD Primary Care Provider Acti ve Start: November 29, 2024 End: November 29, 2024 Dr. Neil Coronado MD Referring Provider Active Start: November 29, 2024 End: November 29, 2024 Dr. Shaq Chandra MD Attending Provider Active Start: November 29, 2024 End: November 29, 2024 Team Status: Inactive Member Role Status Dates Dr. Neil Coronado MD Primary Care Provider Acti ve Start: November 29, 2024 End: November 29, 2024 Dr. Zion Newberry MD Attending Provider Active S tart: November 29, 2024 End: November 29, 2024 Team Status: Active Member Role Status Dates Dr. Neil Coronado MD Primary Care Provider Acti ve Start: January 16, 2025 Dr. Neil Coronado MD Attending Provider Active Start: January 16, 2025 Dr. Neil Coronado MD Referring Provider Active Start: January 16, 2025 Dr. Shaq Chandra MD Other Provider Active Star t: January 16, 2025 Team Status: Inactive Member Role Status Dates Dr. Neil Coronado MD Primary Care Provider Acti ve Start: January 17, 2025 End: January 17, 2025 Dr. Neil Coronado MD Referring Provider Active Start: January 17, 2025 End: January 17, 2025 Dr. Shaq Chandra MD Attending Provider Active Start: January 17, 2025 End: January 17, 2025 Team Status: Inactive Member Role Status Dates Dr. Neil Coronado MD Primary Care Provider Acti ve Start: January 16, 2025 End: January 16, 2025 Dr. Neil Coronado MD Attending Provider Active Start: January 16, 2025 End: January 16, 2025 Dr. Neil Coronado MD Referring Provider Active Start: January 16, 2025 End: January 16, 2025 Dr. Shaq Chandra MD Other Provider Active Star t: January 16, 2025 End: January 16, 2025 Team Status: Active Member Role Status Dates Dr. Neil Coronado MD Primary Care Provider Acti ve Start: January 23, 2025 Dr. Shaq Chandra MD Admit Provider Active Star t: January 23, 2025 Dr. Shaq Chandra MD Attending Provider Active Start: January 23, 2025 Dr. Shaq Chandra MD Referring Provider Active Start: January 23, 2025 Team Status: Active Member Role Status Dates Dr. Neil Coronado MD Primary Care Provider Acti ve Start: January 23, 2025 Dr. Shaq Chandra MD Admit Provider Active Star t: January 23, 2025 Dr. Shaq Chandra MD Attending Provider Active Start: January 23, 2025 Dr. Shaq Chandra MD Referring Provider Active Start: January 23, 2025 Dr. Shaq Chandra MD Other Provider Active Star t: January 23, 2025 INFORMATION SOURCE (unrecogn ized section and content) DATE CREATED AUTHOR 02/04/2025 [facility] FOR RECORDS PERTAINING TO PATIENTS WHO ARE OR HAVE BEEN ENROLLED IN A CHEMICAL DEPENDENCY/SUBSTANCEABUSE PROGRAM, SOME INFORMATION MAY BE OMITTED. This clinical summary was aggregated from multiple sources. Caution should be exercised in using it in the provision of clinical care. This summary normalizes information from multiple sources, and as a consequence, information in this document may materially change the coding, format and clinical context of patient data. In addition, data may be omitted in some cases. CLINICAL DECISIONS SHOULD BE BASED ON THE PRIMARY CLINICAL RECORDS. [employer] provides no warranty or guarantee of the accuracy or completeness of information in this document.
[2025-02-05] MEDS: Acetaminophen 325 MG Tablet 650 MG PO (06:49)
[2025-02-05] MEDS: Levothyroxine 112 MCG Tablet PO (06:50)
--- NOTE | 2025-02-05 08:31 | MRI_ITS ---
PROCEDURE: SPINE LUMBAR W/WO CONTRAST 02/05/2025 REASON FOR EXAM: Low-back pain since June 2020. Recent fall. Bilateral lower extremity radiculopathy. TECHNIQUE: Multiplanar and multisequence images were obtained without and with intravenous gadolinium-based contrast administration. CONTRAST: Clariscan VOLUME: 15mL Gauge IV COMPARISON: MRI lumbar spine, 10/17/2024. FINDINGS: Vertebrae: There are no compression fractures. There is mottled signal within the bone marrow of the lumbar spine, not clinically significant in a patient of this age. Alignment: There is maintenance of the normal lumbar lordosis. Status post interval posterior lumbar interbody fusion L3 through L5. Conus Medullaris: The conus medullaris terminates normally at the L1-2 level. L1-2: There is a broad-based central disc protrusion. There is bilateral facet arthropathy with ligamentum flavum bulging. There is central canal stenosis with the AP dimension of the spinal canal measuring 9 mm. There is no lateral recess stenosis. There is mild foraminal narrowing on the right. L2-3: There is a broad-based central disc protrusion. There is central canal stenosis with the AP dimension of the spinal canal measuring 7 mm. There is mild lateral recess stenosis and moderate foraminal narrowing bilaterally. L3-4: There is a broad-based central disc protrusion. There is bilateral facet arthropathy with a large anterior osteophyte extending into the spinal canal on the right. There is bilateral ligamentum flavum bulging. There is central canal stenosis with the AP dimension of the spinal canal measuring 6 mm. There is severe lateral recess stenosis and foraminal narrowing on the right. There is moderate lateral recess stenosis and foraminal narrowing on the left. L4-5: There is a broad-based central disc protrusion. There is bilateral facet arthropathy with a large anterior osteophyte extending into the spinal canal on the right. There is bilateral ligamentum flavum bulging. There is central canal stenosis with the AP dimension of the spinal canal measuring 7 mm. There is moderate lateral recess stenosis bilaterally. There is severe foraminal narrowing bilaterally. L5-S1: There is a broad-based central disc protrusion. There is bilateral facet arthropathy with a large centrally oriented osteophyte on the right. There is a small superimposed centrally oriented synovial cyst on the right. There is central canal stenosis with the AP dimension of the spinal canal measuring 7 mm. There is moderate lateral recess stenosis and severe foraminal narrowing on the right. There is mild lateral recess stenosis and moderate foraminal narrowing on the left. There is a 7.2 x 4.6 x 1.7 cm postoperative seroma in the subcutaneous fat overlying the right erector spinae muscles. Postcontrast images: Postcontrast images demonstrate enhancement within the spinal canal posteriorly abutting the thecal sac, L3-4 through L5-S1. MRI/Spine Lumbar W/WO Contrast IMPRESSION: 1. Status post interval PLIF, L3 through L5. 2. Diffuse degenerative disc disease and facet arthropathy with central canal stenosis at multiple levels as described. 3. Multilevel lateral recess stenosis and foraminal narrowing, as described. 4. Postoperative seroma in the subcutaneous fat of the back as described. 5. Other findings as noted. Reading Location: [id number]
--- NOTE | 2025-02-05 10:03 | HP.PCM.HOS_ITS ---
HPI - General General Date of Admission: 02/05/25 Date of Service: 02/05/25 Chief Complaint: Weakness HPI Narrative EVELIN SANDHU, is a 74 F who presents with weakness after a fall. This is a 74-year-old female who underwent a L3-5 lumbar fusion on January 23. Subsequent was discharged on the . Patient states that she was doing well at home. Then earlier this morning, was using her walker and the walker got stuck under her chair and causing her to fall. Patient was unable to get up and EMS was called and they try to get her up on her own but the patient just was unable to so the patient presented to an outside emergency room. Given her recent hospitalization here patient was subsequently transferred here for further evaluation. Currently patient feels fine other than pain in her legs. Patient has chronic pain in her legs but is worse than before but otherwise is doing okay. Patient at the outside hospital had a CT of the abdomen pelvis without contrast that showed no traumatic injury of the abdomen or pelvis. Did show evidence of cholelithiasis with no evidence of acute cholecystitis and a nonobstructing right injury renal stone. And to try to get her up at the outside hospital and patient was unable to do so. She did not receive any medications at the outside hospital in regards to pain. [facility] Medical History Wears dentures Wears glasses Post-menopausal Anxiety Thyroid disease Walker as ambulation aid Ambulates with cane Arthritis Kidney stone Back pain Injury of back Vertigo Gastric reflux History of pain when walking History of echocardiogram Cardiology follow-up encounter History of ganglion cyst Obesity Hyperlipidemia Patent foramen ovale Essential hypertension History of non-ST elevation myocardial infarction (NSTEMI) (03/16/21) Osteoarthritis Osteoporosis Non-smoker Degenerative lumbar spinal stenosis Asthma Anxiety Depression Chronic pain GERD (gastroesophageal reflux disease) Screening for colon cancer Home Medications ?Medication ?Instructions ?Recorded ?Last Taken ?Type albuterol sulfate 90 mcg/actuation 2 puff IH PRN PRN A sthma 11/04/16 01/23/25 06:30 History aerosol inhaler atorvastatin 20 mg tablet 20 mg PO QHS CHOLESTEROL 10/2202/03/25 History cholecalciferol (vitamin D3) 50 6,000 unit PO DAILY IRIZARRY PPLEMENT 11/04/16 02/04/25 History mcg (2,000 unit) capsule citalopram 40 mg tablet 20 mg PO DAILY anxiety 11/0402/04/25 History fish oil-dha-epa 1,200 mg-144 1 ea PO DAILY SUPPLEMENT 11/04/16 02/04/25 History mg-216 mg capsule levothyroxine 112 mcg tablet 112 mcg PO DAILY thyroid 11/04/16 01/23/25 06:30 History melatonin 5 mg-pyridoxine (vitamin 1 ea PO QHS SLEEP 0 11/04/16 01/22/25 22:30 History B6) 1 mg tablet vifhjvikoylj-vcgzjumd-oqnsqqd-folic 1 ea PO DAILY SUPP LEMENT 11/04/16 01/22/25 09:30 History acid 400 mcg-vit K1 20 mcg tablet vitamin E 268 mg (400 unit) capsule 400 unit PO DAILY SUPPLEMENT 11/04/16 01/22/25 14:00 History calcium 500 mg (as carbonate)-vit 2 tab PO QHS SUPPLEM ENT 11/08/16 02/04/25 History D3 10 mcg (400 unit) chewable tablet losartan 100 mg tablet (Cozaar) 100 mg PO DAILY BP #30 tabs 03/17/21 01/22/25 17:00 Rx famotidine 40 mg tablet 40 mg PO DAILY GERD 04/24/21 02/04/25 History fluticasone 250 mcg-salmeterol 50 1 ea inhalation FREDDIE Y ASTHMA 01/22/25 02/04/25 History mcg/dose blistr powdr for 1 ea inhalation (Wixela Inhub) loratadine 10 mg tablet (Allergy 10 mg PO DAILY ALLERG IES 01/22/25 01/22/25 22:30 History Relief (loratadine)) venlafaxine 75 mg capsule,extended 150 mg PO DAILY DEP RESSION 01/22/25 01/22/25 22:30 History release 24 hr acetaminophen 500 mg tablet 500 mg PO Q6H #30 tabs 02/04/25 Rx meloxicam 15 mg tablet 15 mg PO DAILY #30 tabs 0511/27 Unknown Rx oxycodone 5 mg tablet 2.5 - 5 mg (0.5 - 1 x 5 mg) PO Q6H 01/25/25 Unknown Rx PRN pain 7 days #28 tabs gabapentin 300 mg capsule 300 mg PO QHS #14 caps 02/01 Unknown Rx Allergy/AdvReac Type Severity Reaction Status Date / Time ubidecarenone (From H2Q Allergy Severe Nausea/Vom/ Verified 01/23/25 09:12 CoQ10) Diarrhea codeine Allergy Rash Verified 01/23/25 09:12 bismuth subsalicylate (From AdvReac Nausea/Vom/ Verified 01/23/25 09:12 Pepto-Bismol) Diarrhea diphenhydramine HCl (From AdvReac Nausea/Vom/ Verified 01/23/25 09:12 Benadryl) Diarrhea simvastatin (From Zocor) AdvReac Nausea Verified 01/23/25 09:12 Family History (Updated 02/05/25 @ 10:[address] Jose Layne DO) Other Heart disease Surgical History History of lumbar fusion History of cardiac catheterization History of partial knee replacement Hx of surgical procedure Hx of hysterectomy Hx of breast biopsy History of left heart catheterization (03/17/21) H/O thyroidectomy History of appendectomy Social History Smoking Status: Never smoker ROS ROS Narrative All review of systems were negative except as mentioned above in the history of present illness and the other review of systems. Vital Signs Vital Signs Vital Signs: 02/05/25 08:08 02/05/25 08:10 Temperature 37.1 C Temperature Source Temporal Pulse Rate 72 Respiratory Rate 18 18 Blood Pressure 167/90 H Blood Pressure Mean 115 Blood Pressure Source Monitor Blood Pressure Position Semi-Fowlers Blood Pressure Location Right Arm Pulse Ox 98 Oxygen Delivery Method Room Air Room Air Weight Weight: 74.2 kg Body Mass Index (BMI) 36.0 Physical Exam Const alert and no apparent distress HEENT normocephalic and head/scalp atraumatic Resp normal respiratory effort, no retractions, no use of accessory muscles and clear to auscultation bilaterally Cardio regular rate, regular rhythm, S1 normal heart sound and S2 normal heart sound GI normal to inspection, nondistended, normoactive bowel sounds, soft to palpation, non-tender and non-distended Extremity normal to inspection, full ROM and no clubbing, cyanosis or edema Extremity Narrative: No knee effusions. Neuro Sensorium / Orientation: awake and alert Assessment & Plan Assessment/Plan (1) Failure to thrive: PLAN: Status post fall but no acute obvious injury. Patient underwent recent back surgery but was using a walker so her performance status at home was not great and this fall set her back. Plan is for physical, Occupational Therapy eval and treat. Case management to assist in regards to disposition. Patient is open to going to a alf facility if it is recommended. Patient lives by herself at home. PLAN: Plan Chronic conditions * Recent L3-5 lumbar fusion: Stable. Orthospine consulted. MRI of the lumbar spine has been ordered. * Hyperlipidemia: Continue with atorvastatin * Depression: Continue escitalopram * Hypothyroidism: Continue levothyroxine VTE prophylaxis with SCDs Charges/Coding Visit Charges Inpatient E&M: 52681 Init Hosp L2
[2025-02-05 10:14] LABS: Absolute Lymphocyte Count 4.16 X10^3/uL (0.83-4.51); Basophil# 0.04 X10^3/uL; Basophil% 0.4 % (0-1); Eosinophil# 0.17 X10^3/uL; Eosinophils% 1.5 % (0-5); Hematocrit 34.4 % (37-47); Hemoglobin 11.2 g/dL (12.0-15.0); Lymphocyte # 4.16 X10^3/ul (0.83-4.51); Lymphocyte % 37.5 % (19-41); Mean Corp Hgb Conc 32.6 g/dL (32-36); Mean Corpuscular Hgb 27.7 pg (27.0-32.0); Mean Corpuscular Volume 85.1 fL (81-99); Mean Platelet Vol. 8.4 fl (6.2-12.0); Monocyte# 0.67 X10^3/uL; NRBC Flagged by Analyzer 0 % (0-5); Neutrophil # 6.02 X10^3/uL (2.7-7.7); Neutrophil % 54.2 % (47-70); Platelet Count 363 K/mm3 (150-450); RBC Distribution Width CV 14.5 % (11.6-14.6); RBC Distribution Width SD 44.2 fl (35.1-43.9); Red Blood Count 4.04 M/mm3 (4.2-5.4); White Blood Count 11.1 K/mm3 (4.4-11.0)
[2025-02-05] MEDS: Meloxicam 15 MG Tablet PO (10:27)
[2025-02-05] MEDS: Losartan Potassium 100 MG Tablet PO (10:27)
[2025-02-05] MEDS: Citalopram 20 MG Tablet PO (10:27)
[2025-02-05] MEDS: Albuterol 2.5 MG/3 ML VIAL.NEB. INHALATION ×2 (10:28→19:12)
[2025-02-05] MEDS: Budesonide Respules 0.5 MG/2 ML AMPUL.NEB. INHALATION ×2 (10:41→19:12)
[2025-02-05 11:05] LABS: ALB/GLOB Ratio 1.5 RATIO (0.9-2.4); AST(SGOT) 24 U/L (<=31); Alanine Aminotransfer ALT/SGPT 12 U/L (<=34); Alkaline Phosphatase 111 U/L (35-104); Anion Gap 14 (5-15); BUN 18 mg/dL (4-19); BUN/Creat Ratio 21.1 RATIO (10-20); Calcium,Total 8.8 mg/dL (7.6-11.0); Chloride 103 mmol/L (98-108); Creatinine, Serum 0.84 mg/dL (0.70-1.20); EST Glomerular Filtration Rate 73 (>60); Estimated Creatinine Clearance 52.05 ml/min (50-250); Globulin 2.7 g/dL (2.2-4.2); Glucose 106 mg/dL (70-99); Potassium 3.1 mmol/L (3.3-5.1); Protein, Total 6.7 g/dL (5.9-8.4); Sodium Level 138 mmol/L (133-145)
--- NOTE | 2025-02-05 11:18 | CASEMGMT ---
ERLIN FRANKEL Chart Review: Pt had an L3-5 lumbar fusion on January 23. Pt was DC'd from hospital on 01/25/25. Pt reports she was doing well, ambulating in home, cooking her own meals, I with ADLs. She had a follow up appointment scheduled for today, 02/05/25, but cancelled due to being in the hospital. Pt fell at home, states wheel on my walker clipped a chair and I took a tumble. Pt reports she attempted to get up on her own but was unable so she called the squad. Pt wishes to return home if able, open to SNF for rehab if therapy recommends it. Follow therapy notes for DC planning.
[2025-02-05] MEDS: Acetaminophen 500 MG Tablet PO ×2 (12:49→18:19)
[2025-02-05 15:56] LABS: Erythrocyte Sedimentation Rate 21 mm/hr (0-30)
--- NOTE | 2025-02-05 15:56 | CONS.ORTHO ---
Documented by User: JEANNINE Ch 02/05/25 16:02 HPI Consult Data Date of Consult: 02/05/25 HPI Narrative HPI Narrative: EVELIN SANDHU, is a 74 F who presents with weakness after a fall. This is a 74-year-old female who underwent a L3-5 lumbar fusion on January 23. Subsequent was discharged on the . Patient states that she was doing well at home. Then earlier this morning, was using her walker and the walker got stuck under her chair and causing her to fall. Patient was unable to get up and EMS was called and they try to get her up on her own but the patient just was unable to so the patient presented to an outside emergency room. Given her recent hospitalization here patient was subsequently transferred here for further evaluation. Currently patient feels fine other than pain in her legs. Patient has chronic pain in her legs but is worse than before but otherwise is doing okay. Patient at the outside hospital had a CT of the abdomen pelvis without contrast that showed no traumatic injury of the abdomen or pelvis. Did show evidence of cholelithiasis with no evidence of acute cholecystitis and a nonobstructing right injury renal stone. And to try to get her up at the outside hospital and patient was unable to do so. She did not receive any medications at the outside hospital in regards to pain. Patient was seen at the bedside today. Patient says yesterday evening around approximately 10:45 PM she got up out of bed to go get some water when she had her fall. Patient says that she fell and landed on her left side and on the left buttock. She says that prior to this fall her postop recovery was going very well and she was having very minimal pain. The patient was started on gabapentin last week due to having some ongoing leg pain after the surgery. Patient says that she felt like the gabapentin only made her slightly sleepy but denied any dizziness. Today the patient denies any numbness or tingling into the bilateral legs and says that her pain is located to her lower back not localized to either side. She denies any constipation or diarrhea while at home however she does note that her appetite has not yet returned to normal following the surgery. ON LICENSE OF [facility] Medical History Wears dentures Wears glasses Post-menopausal Anxiety Thyroid disease Walker as ambulation aid Ambulates with cane Arthritis Kidney stone Back pain Injury of back Vertigo Gastric reflux History of pain when walking History of echocardiogram Cardiology follow-up encounter History of ganglion cyst Obesity Hyperlipidemia Patent foramen ovale Essential hypertension History of non-ST elevation myocardial infarction (NSTEMI) (03/16/21) Osteoarthritis Osteoporosis Non-smoker Degenerative lumbar spinal stenosis Asthma Anxiety Depression Chronic pain GERD (gastroesophageal reflux disease) Screening for colon cancer Home Medications ?Medication ?Instructions ?Recorded ?Last Taken ?Type albuterol sulfate 90 mcg/actuation 2 puff IH PRN PRN Asthma 11/04/16 01/23/25 06:30 History aerosol inhaler atorvastatin 20 mg tablet 20 mg PO QHS CHOLESTEROL 11/04/16 02/03/25 History cholecalciferol (vitamin D3) 50 6,000 unit PO DAILY SUPPLEMENT 11/04/16 02/04/25 History mcg (2,000 unit) capsule citalopram 40 mg tablet 20 mg PO DAILY anxiety 11/04/16 02/04/25 History fish oil-dha-epa 1,200 mg-144 1 ea PO DAILY SUPPLEMENT 11/04/16 02/04/25 History mg-216 mg capsule levothyroxine 112 mcg tablet 112 mcg PO DAILY thyroid 11/04/16 01/23/25 06:30 History melatonin 5 mg-pyridoxine (vitamin 1 ea PO QHS SLEEP 11/04/16 01/22/25 22:30 History B6) 1 mg tablet gwgfhqazbckj-qkxrmjjw-njooukr-folic 1 ea PO DAILY SUPPLEMENT 11/04/16 01/22/25 09:30 History acid 400 mcg-vit K1 20 mcg tablet vitamin E 268 mg (400 unit) capsule 400 unit PO DAILY SUPPLEMENT 11/04/16 01/22/25 14:00 History calcium 500 mg (as carbonate)-vit 2 tab PO QHS SUPPLEMENT 11/08/16 02/04/25 History D3 10 mcg (400 unit) chewable tablet losartan 100 mg tablet (Cozaar) 100 mg PO DAILY BP #30 tabs 03/17/21 01/22/25 17:00 Rx famotidine 40 mg tablet 40 mg PO DAILY GERD 04/24/21 02/04/25 History fluticasone 250 mcg-salmeterol 50 1 ea inhalation DAILY ASTHMA 01/22/25 02/04/25 History mcg/dose blistr powdr for 1 ea inhalation (Wixela Inhub) loratadine 10 mg tablet (Allergy 10 mg PO DAILY ALLERGIES 01/22/25 01/22/25 22:30 History Relief (loratadine)) venlafaxine 75 mg capsule,extended 150 mg PO DAILY DEPRESSION 01/22/25 01/22/25 22:30 History release 24 hr acetaminophen 500 mg tablet 500 mg PO Q6H #30 tabs 01/25/25 02/04/25 Rx meloxicam 15 mg tablet 15 mg PO DAILY #30 tabs 01/25/25 Unknown Rx oxycodone 5 mg tablet 2.5 - 5 mg (0.5 - 1 x 5 mg) PO Q6H 01/25/25 Unknown Rx PRN pain 7 days #28 tabs gabapentin 300 mg capsule 300 mg PO QHS #14 caps 02/01/25 Unknown Rx Allergy/AdvReac Type Severity Reaction Status Date / Time ubidecarenone (From H2Q Allergy Severe Nausea/Vom/ Verified 01/23/25 09:12 CoQ10) Diarrhea codeine Allergy Rash Verified 01/23/25 09:12 bismuth subsalicylate (From AdvReac Nausea/Vom/ Verified 01/23/25 09:12 Pepto-Bismol) Diarrhea diphenhydramine HCl (From AdvReac Nausea/Vom/ Verified 01/23/25 09:12 Benadryl) Diarrhea simvastatin (From Zocor) AdvReac Nausea Verified 01/23/25 09:12 Family History (Updated 02/05/25 @ 10:[address] Jose Layne DO) Other Heart disease Surgical History History of lumbar fusion History of cardiac catheterization History of partial knee replacement Hx of surgical procedure Hx of hysterectomy Hx of breast biopsy History of left heart catheterization (03/17/21) H/O thyroidectomy History of appendectomy Social History Smoking Status: Never smoker Vital Signs Vital Signs Vital Signs: 02/05/25 08:08 02/05/25 08:10 02/05/25 10:00 Temperature 98.7 F Temperature Source Temporal Pulse Rate 72 Pulse Strength Normal (2+) Respiratory Rate 18 18 Respiratory Pattern Blood Pressure 167/90 H Blood Pressure Mean 115 Blood Pressure Source Monitor Blood Pressure Position Semi-Fowlers Blood Pressure Location Right Arm Pulse Ox 98 Oxygen Delivery Method Room Air Room Air 02/05/25 11:14 02/05/25 11:14 Temperature Temperature Source Pulse Rate 92 Pulse Strength Respiratory Rate 18 Respiratory Pattern Normal Blood Pressure Blood Pressure Mean Blood Pressure Source Blood Pressure Position Blood Pressure Location Pulse Ox 97 Oxygen Delivery Method Room Air Weight Weight: 163 lb 9.328 oz Body Mass Index (BMI) 36.0 Physical Exam Narrative Physical examination of the back and belly shows well-healing and dry surgical incisions. Steri-Strips removed, incision left open. There is ecchymosis surrounding the incisions. No drainage from the surgical incisions. There is no tenderness over the surgical incisions upon examination. Neurological examination of the lower extremities shows 5X5 power. Normal sensation across all dermatomes. Patient denies any bilateral hip pain with the lower extremity movements. Logroll test negative bilaterally. Patient is neurovascularly intact distally. Const alert, oriented x3 and no apparent distress Lab / Micro Data 02/05/25 10:00 02/05/25 10:00 Labs: Laboratory Results - last 24 hr 02/05/25 10:00: WBC 11.1 H, RBC 4.04 L, Hgb 11.2 L, Hct 34.4 L, MCV 85.1, MCH 27.7, MCHC 32.6, RDW Std Deviation 44.2 H, RDW Coeff of Yadira 14.5, Plt Count 363, MPV 8.4, Immature Gran % (Auto) 0.400, Neut % (Auto) 54.2, Lymph % (Auto) 37.5, [place] % (Auto) 6.0, Eos % (Auto) 1.5, Baso % (Auto) 0.4, Absolute Neuts (auto) 6.0, Absolute Lymphs (auto) 4.16, Nucleated RBC % 0, Sodium 138, Potassium 3.1 L, Chloride 103, Carbon Dioxide 22.0, Anion Gap 14, BUN 18, Creatinine 0.84, Estim Creat Clear Calc 52.05, Est GFR (MDRD) Non-Af 73, BUN/Creatinine Ratio 21.1 H, Glucose 106 H, Calcium 8.8, Total Bilirubin 0.40, AST 24, ALT 12, Alkaline Phosphatase 111 H, Total Protein 6.7, Albumin 4.0, Globulin 2.7, Albumin/Globulin Ratio 1.5 Assessment & Plan Assessment/Plan (1) Status post lumbar spinal fusion: PLAN: Plan Patient is 2 weeks postop L3-5 fusion. Patient's postop recovery was going well unfortunately yesterday she did have a fall which resulted in her being brought to the hospital for further evaluation. Patient was taken to [place] in which a CT of the lumbar spine was obtained, attempting to obtain those images. Documented by User: Dr. Shaq Chandra MD 02/05/25 16:19 HPI Consult Data Date of Consult: 02/05/25 ON LICENSE OF [facility] Medical History Wears dentures Wears glasses Post-menopausal Anxiety Thyroid disease Walker as ambulation aid Ambulates with cane Arthritis Kidney stone Back pain Injury of back Vertigo Gastric reflux History of pain when walking History of echocardiogram Cardiology follow-up encounter History of ganglion cyst Obesity Hyperlipidemia Patent foramen ovale Essential hypertension History of non-ST elevation myocardial infarction (NSTEMI) (03/16/21) Osteoarthritis Osteoporosis Non-smoker Degenerative lumbar spinal stenosis Asthma Anxiety Depression Chronic pain GERD (gastroesophageal reflux disease) Screening for colon cancer Home Medications ?Medication ?Instructions ?Recorded ?Last Taken ?Type albuterol sulfate 90 mcg/actuation 2 puff IH PRN PRN Asthma 11/04/16 01/23/25 06:30 History aerosol inhaler atorvastatin 20 mg tablet 20 mg PO QHS CHOLESTEROL 11/04/16 02/03/25 History cholecalciferol (vitamin D3) 50 6,000 unit PO DAILY SUPPLEMENT 11/04/16 02/04/25 History mcg (2,000 unit) capsule citalopram 40 mg tablet 20 mg PO DAILY anxiety 11/04/16 02/04/25 History fish oil-dha-epa 1,200 mg-144 1 ea PO DAILY SUPPLEMENT 11/04/16 02/04/25 History mg-216 mg capsule levothyroxine 112 mcg tablet 112 mcg PO DAILY thyroid 11/04/16 01/23/25 06:30 History melatonin 5 mg-pyridoxine (vitamin 1 ea PO QHS SLEEP 11/04/16 01/22/25 22:30 History B6) 1 mg tablet xlntwppwvjlm-gvcxtjgu-qojqlxc-folic 1 ea PO DAILY SUPPLEMENT 11/04/16 01/22/25 09:30 History acid 400 mcg-vit K1 20 mcg tablet vitamin E 268 mg (400 unit) capsule 400 unit PO DAILY SUPPLEMENT 11/04/16 01/22/25 14:00 History calcium 500 mg (as carbonate)-vit 2 tab PO QHS SUPPLEMENT 11/08/16 02/04/25 History D3 10 mcg (400 unit) chewable tablet losartan 100 mg tablet (Cozaar) 100 mg PO DAILY BP #30 tabs 03/17/21 01/22/25 17:00 Rx famotidine 40 mg tablet 40 mg PO DAILY GERD 04/24/21 02/04/25 History fluticasone 250 mcg-salmeterol 50 1 ea inhalation DAILY ASTHMA 01/22/25 02/04/25 History mcg/dose blistr powdr for 1 ea inhalation (Wixela Inhub) loratadine 10 mg tablet (Allergy 10 mg PO DAILY ALLERGIES 01/22/25 01/22/25 22:30 History Relief (loratadine)) venlafaxine 75 mg capsule,extended 150 mg PO DAILY DEPRESSION 01/22/25 01/22/25 22:30 History release 24 hr acetaminophen 500 mg tablet 500 mg PO Q6H #30 tabs 01/25/25 02/04/25 Rx meloxicam 15 mg tablet 15 mg PO DAILY #30 tabs 01/25/25 Unknown Rx oxycodone 5 mg tablet 2.5 - 5 mg (0.5 - 1 x 5 mg) PO Q6H 01/25/25 Unknown Rx PRN pain 7 days #28 tabs gabapentin 300 mg capsule 300 mg PO QHS #14 caps 02/01/25 Unknown Rx Allergy/AdvReac Type Severity Reaction Status Date / Time ubidecarenone (From H2Q Allergy Severe Nausea/Vom/ Verified 01/23/25 09:12 CoQ10) Diarrhea codeine Allergy Rash Verified 01/23/25 09:12 bismuth subsalicylate (From AdvReac Nausea/Vom/ Verified 01/23/25 09:12 Pepto-Bismol) Diarrhea diphenhydramine HCl (From AdvReac Nausea/Vom/ Verified 01/23/25 09:12 Benadryl) Diarrhea simvastatin (From Zocor) AdvReac Nausea Verified 01/23/25 09:12 Family History (Updated 02/05/25 @ 10:[address] Jose Layne DO) Other Heart disease Surgical History History of lumbar fusion History of cardiac catheterization History of partial knee replacement Hx of surgical procedure Hx of hysterectomy Hx of breast biopsy History of left heart catheterization (03/17/21) H/O thyroidectomy History of appendectomy Social History Smoking Status: Never smoker Lab / Micro Data 02/05/25 10:00 02/05/25 10:00 Assessment & Plan Assessment/Plan (1) Status post lumbar spinal fusion: PLAN: Plan Patient is 2 weeks postop L3-5 fusion. Patient's postop recovery was going well unfortunately yesterday she did have a fall which resulted in her being brought to the hospital for further evaluation. Patient was taken to [place] in which a CT of the lumbar spine was obtained, attempting to obtain those images. The CT report mention postoperative seroma. MRI was obtained today, official read is pending. Per my read, this seems to be a postoperative seroma in the subcutaneous space in the right paraspinal region. On my exam, wound is well-healed and there is no palpable swelling or fluctuation. There is no redness or warmth suggestive of infection. Regardless I did order ESR CRP. ESR is 21, CRP is pending. White count is mildly elevated. At this time, it is safe for her to work with physical therapy and ambulate with the help of a walker as tolerated. Frequent changing position was discussed. Patient mentions that Aleve works best for her pain control. Will request hospitalist to see if NSAIDs can be added for pain control. Considering the patient lives alone, this new fall has worsened her overall function as she is only 2 weeks status post L3-5 fusion. At this point it may be reasonable for her to have a short-term rehab stay until she is fully independent and safe by herself. Will continue to follow.
[2025-02-05 16:29] LABS: CRP 3.05 mg/L (0.0-3.0)
[2025-02-05] MEDS: Famotidine 20 MG Tablet 40 MG PO (20:20)
[2025-02-05] MEDS: Gabapentin 300 MG Capsule PO (20:20)
[2025-02-05] MEDS: Atorvastatin Calcium 20 MG Tablet PO (20:20)
[2025-02-05] MEDS: hydrALAZINE 20 MG/ML Vial 10 MG IV (20:20)
[2025-02-05] MEDS: Calcium Carb/Vitamin D 1 TABLET Tablet 2 TABLET PO (20:21)
[2025-02-05] MEDS: Loratadine 10 MG Tablet PO (20:21)
[2025-02-05] MEDS: 0.9% Saline Lock 10 ML Syringe IV (20:22)
[2025-02-06] MEDS: Acetaminophen 500 MG Tablet PO ×3 (00:51→11:21)
[2025-02-06] MEDS: oxyCODONE 5 MG Tablet PO (00:52)
[2025-02-06 02:45] VITALS: BP 162/74; PULSE 82; RESP 18; TEMP 37; O2SAT 96
[2025-02-06] MEDS: Levothyroxine 112 MCG Tablet PO (05:26)
[2025-02-06 06:00] VITALS: BMI 35.8
[2025-02-06 06:50] VITALS: PULSE 72; RESP 16; O2SAT 95
[2025-02-06] MEDS: Budesonide Respules 0.5 MG/2 ML AMPUL.NEB. INHALATION (06:50)
[2025-02-06] MEDS: Albuterol 2.5 MG/3 ML VIAL.NEB. INHALATION (06:50)
--- NOTE | 2025-02-06 07:23 | PN.HOSP_ITS ---
Subjective Subjective Doing well with therapy. Feeling well. Anxious to go home now. Objective Data Objective Data Vital Signs: Vital Signs Temp Pulse Resp BP Pulse Ox O2 Del Method 37.0 C 82 18 162/74 H 96 Room Air 02/06/25 02:45 02/06/25 02:45 02/06/25 02:45 02/06/25 02:45 02/06/25 02:45 02/06/25 02:45 Oxygen Delivery Method Room Air Weight: 74.3 kg Body Mass Index (BMI) 35.8 Intake & Output: Intake and Output for Last 24 Hours 02/04/25 02/05/25 02/06/25 23:59 23:59 23:59 Intake Total 1700 / 1700 Balance 1700 / 1700 Lab / Micro Data 02/05/25 10:00 02/05/25 10:00 Labs: Laboratory Results - last 24 hr 02/05/25 10:00: WBC 11.1 H, RBC 4.04 L, Hgb 11.2 L, Hct 34.4 L, MCV 85.1, MCH 27.7, MCHC 32.6, RDW Std Deviation 44.2 H, RDW Coeff of Yadira 14.5, Plt Count 363, MPV 8.4, Immature Gran % (Auto) 0.400, Neut % (Auto) 54.2, Lymph % (Auto) 37.5, [place] % (Auto) 6.0, Eos % (Auto) 1.5, Baso % (Auto) 0.4, Absolute Neuts (auto) 6.0, Absolute Lymphs (auto) 4.16, Nucleated RBC % 0, ESR 21, Sodium 138, P otassium 3.1 L, Chloride 103, Carbon Dioxide 22.0, Anion Gap 14, BUN 18, Creatinine 0.84, Estim Creat Clear Calc 52.05, Est GFR (MDRD) Non-Af 73, B UN/Creatinine Ratio 21.1 H, Glucose 106 H, Calcium 8.8, Total Bilirubin 0.40, AST 24, ALT 12, Alkaline Phosphatase 111 H, C-React Prot Ext Range 3.05 H, Total Protein 6.7, Albumin 4.0, Globulin 2.7, Albumin/Globulin Ratio 1.5 Physical Exam Const Constitutional Narrative: Up in chair. Afebrile. Nontoxic. Assessment & Plan Assessment/Plan (1) Failure to thrive: PLAN: Status post fall but no acute obvious injury. Patient underwent recent back surgery but was using a walker so her performance status at home was not great and this fall set her back. Transient patient and doing well now. Patient doing much better than initially anticipated on initial evaluation. Patient is going to be going home. She does not require detention facility and she is declining home health care. PLAN: Plan Chronic conditions * Recent L3-5 lumbar fusion: Stable. Orthospine consulted. MRI of the lumbar spine has been performed and reviewed by Dr. Chandra and ok'd to work with therapy. (formal read still pending) * Hyperlipidemia: Continue with atorvastatin * Depression: Continue escitalopram * Hypothyroidism: Continue levothyroxine VTE prophylaxis with SCDs
[2025-02-06 08:51] VITALS: BP 136/76; PULSE 90; RESP 18; TEMP 36.9; O2SAT 98
[2025-02-06] MEDS: Venlafaxine XR 150 MG Capsule PO (08:53)
[2025-02-06] MEDS: Cholecalciferol (VIT D3) 25 MCG TABLET (1,000 UNITS) 150 MCG PO (08:53)
[2025-02-06] MEDS: Citalopram 20 MG Tablet PO (08:54)
[2025-02-06] MEDS: Loratadine 10 MG Tablet PO (08:54)
[2025-02-06] MEDS: Meloxicam 15 MG Tablet PO (08:54)
[2025-02-06] MEDS: Famotidine 20 MG Tablet 40 MG PO (08:54)
[2025-02-06] MEDS: Losartan Potassium 100 MG Tablet PO (08:54)
--- NOTE | 2025-02-06 09:42 | CASEMGMT ---
ERLIN FRANKEL notified by provider, Pt does not wish to have HHC services, but does want a FWW. ERLIN FRANKEL into pt room, provided verbal list of DME providers, pt chose [facility] as provider of choice. ERLIN FRANKEL obtained script, sent referral to [facility] as provider stated pt will DC today.
--- NOTE | 2025-02-06 09:57 | DS.PCM_ITS ---
Providers Date of Admission: 02/05/25 Primary Care Physician: Dr. Neil Coronado MD Consultations 02/05/25 05:07 Consult: Orthopedics Routine Consulting Provider: Shaq Chandra Reason for Consult: Fall, recent lumar surgery, incision region hematoma versus seroma. EMERGENT Consult: No MD Notified: Yes Date Notified: 02/05/25 Time Notified: 05:09 Method of Notification: ED Physician Initiated Reason For Visit: ADULT FTT, FALL, RECENT LUMB FUSION Diagnosis Discharge Diagnosis (1) Failure to thrive: Status: Acute Plan: Status post fall but no acute obvious injury. Patient underwent recent back surgery but was using a walker so her performance status at home was not great and this fall set her back. Transient patient and doing well now. Patient doing much better than initially anticipated on initial evaluation. Patient is going to be going home. She does not require senior care facility and she is declining home health care. Plan Chronic conditions * Recent L3-5 lumbar fusion: Stable. Orthospine consulted. MRI of the lumbar spine has been performed and reviewed by Dr. Chandra and ok'd to work with therapy. (formal read still pending) * Hyperlipidemia: Continue with atorvastatin * Depression: Continue escitalopram * Hypothyroidism: Continue levothyroxine VTE prophylaxis with SCDs Medications at Discharge Home Medications albuterol sulfate 90 mcg/actuation aerosol inhaler 2 puff IH PRN PRN Asthma 11/04/16 atorvastatin 20 mg tablet 20 mg PO QHS CHOLESTEROL 11/04/16 cholecalciferol (vitamin D3) 50 mcg (2,000 unit) capsule 6,000 unit PO DAILY SUPPLEMENT 11/04/16 citalopram 40 mg tablet 20 mg PO DAILY anxiety 11/04/16 fish oil-dha-epa 1,200 mg-144 mg-216 mg capsule 1 ea PO DAILY SUPPLEMENT 11/04/16 levothyroxine 112 mcg tablet 112 mcg PO DAILY thyroid 11/04/16 melatonin 5 mg-pyridoxine (vitamin B6) 1 mg tablet 1 ea PO QHS SLEEP 11/04/16 uwbnbrveiode-zyeqkaxo-snfxlqp-folic acid 400 mcg-vit K1 20 mcg tablet 1 ea PO DAILY SUPPLEMENT 11/04/16 vitamin E 268 mg (400 unit) capsule 400 unit PO DAILY SUPPLEMENT 11/04/16 calcium 500 mg (as carbonate)-vit D3 10 mcg (400 unit) chewable tablet 2 tab PO QHS SUPPLEMENT 11/08/16 losartan 100 mg tablet (Cozaar) 100 mg PO DAILY BP #30 tabs 03/17/21 famotidine 40 mg tablet 40 mg PO DAILY GERD 04/24/21 fluticasone 250 mcg-salmeterol 50 mcg/dose blistr powdr for inhalation (Valentina Inhub) 1 ea inhalation DAILY ASTHMA 01/22/25 loratadine 10 mg tablet (Allergy Relief (loratadine)) 10 mg PO DAILY ALLERGIES 01/22/25 venlafaxine 75 mg capsule,extended release 24 hr 150 mg PO DAILY DEPRESSION 01/22/25 acetaminophen 500 mg tablet 500 mg PO Q6H #30 tabs 01/25/25 meloxicam 15 mg tablet 15 mg PO DAILY #30 tabs 01/25/25 oxycodone 5 mg tablet 2.5 - 5 mg (0.5 - 1 x 5 mg) PO Q6H PRN pain 7 days #28 tabs 01/25/25 gabapentin 300 mg capsule 300 mg PO QHS #14 caps 02/01/25 Hospital Course Operations None Procedures None Summary of Care Provided Hospital Course: Patient presented from outside hospital after a fall. No evidence of any fracture. Patient was very weak and that was hurting. Patient had MRI of her lumbar spine given her recent lumbar fusion. MRI showed no acute findings. Patient was seen by Dr. Chandra of spine surgery and she was okayed for resumption of therapy. Patient is actually been doing well with therapy and will be discharged home. Weight / BMI Weight Weight: 74.3 kg Body Mass Index (BMI) 35.8 ABG / Lab / Microbiology Data 02/05/25 10:00 02/05/25 10:00 Laboratory: Laboratory Results - last 24 hr 02/05/25 10:00: WBC 11.1 H, RBC 4.04 L, Hgb 11.2 L, Hct 34.4 L, MCV 85.1, MCH 27.7, MCHC 32.6, RDW Std Deviation 44.2 H, RDW Coeff of Yadira 14.5, Plt Count 363, MPV 8.4, Immature Gran % (Auto) 0.400, Neut % (Auto) 54.2, Lymph % (Auto) 37.5, [place] % (Auto) 6.0, Eos % (Auto) 1.5, Baso % (Auto) 0.4, Absolute Neuts (auto) 6.0, Absolute Lymphs (auto) 4.16, Nucleated RBC % 0, ESR 21, Sodium 138, P otassium 3.1 L, Chloride 103, Carbon Dioxide 22.0, Anion Gap 14, BUN 18, Creatinine 0.84, Estim Creat Clear Calc 52.05, Est GFR (MDRD) Non-Af 73, B UN/Creatinine Ratio 21.1 H, Glucose 106 H, Calcium 8.8, Total Bilirubin 0.40, AST 24, ALT 12, Alkaline Phosphatase 111 H, C-React Prot Ext Range 3.05 H, Total Protein 6.7, Albumin 4.0, Globulin 2.7, Albumin/Globulin Ratio 1.5 Radiography Diagnostic Testing: Radiology Impression Lumbar Spine MRI 02/05/25 08:31 IMPRESSION: 1. Status post interval PLIF, L3 through L5. 2. Diffuse degenerative disc disease and facet arthropathy with central canal stenosis at multiple levels as described. 3. Multilevel lateral recess stenosis and foraminal narrowing, as described. 4. Postoperative seroma in the subcutaneous fat of the back as described. 5. Other findings as noted. Reading Location: [id number] Instructions Discharge Diet: No restrictions DC O2, CPAP, BIPAP Needs Home O2 Discharge instructions: No Meaningful Use Info Meaningful Use Meaningful Use Diagnoses (Choose all that apply): None applicable Ischemic Stroke Statin Dosing Therapy Reference: STATIN DOSE THERAPY REFERENCE: * Patients > 75 years receive moderate or high dose statin therapy. * Patients 75 years or YOUNGER should receive HIGH intensity statin dose unless contraindicated. You will be required to document reason for non-treatment if statin daily dose does not meet guidelines. HIGH DOSE STATIN THERAPY DAILY Atorvastatin > than or = to 40 mg Rosuvastatin > than or = to 20 mg Amlodipine + Atorvastatin > than or = to 2.5/40 mg Ezetimibe + Simvastatin 10/80 mg Simvastatin 80mg Discharge Plan Admission Admit Date/Time: 02/05/25 05:15 Primary Reason for Your Visit: fall Attending Provider: Jose Layne Primary Care Provider: Neil Coronado Consulting Providers: Shaq Chandra; Irina Talavera Discharge Orders/Prescriptions Prescriptions: Continued famotidine 40 mg tablet 40 mg PO DAILY atorvastatin 20 MG tablet 20 mg PO QHS citalopram 40 MG tablet 20 mg PO DAILY albuterol sulfate 6.7 GM HFA aerosol inhaler 2 puff IH PRN PRN (Reason: Asthma) vitamin E 400 UNIT capsule 400 unit PO DAILY levothyroxine 112 MCG tablet 112 mcg PO DAILY melatonin-pyridoxine (vit B6) 1 EACH tablet 1 ea PO QHS fish oil-dha-epa 1 EACH capsule 1 ea PO DAILY cholecalciferol (vitamin D3) 2,000 UNIT capsule 6,000 unit PO DAILY mv,Ca,min-folic acid-vit K1 1 EACH tablet 1 ea PO DAILY calcium carbonate-vitamin D3 1 EACH tablet,chewable 2 tab PO QHS losartan [Cozaar] 100 mg tablet 100 mg PO DAILY Qty: 30 0RF venlafaxine 75 mg capsule,extended release 24hr 150 mg PO DAILY loratadine [Allergy Relief (loratadine)] 10 mg tablet 10 mg PO DAILY fluticasone propion-salmeterol [Wixela Inhub] 250-50 mcg/dose blister with device 1 ea inhalation DAILY acetaminophen 500 mg Tablet 500 mg PO Q6H Qty: 30 0RF meloxicam 15 mg Tablet 15 mg PO DAILY Qty: 30 0RF oxycodone 5 mg Tablet 2.5 - 5 mg PO Q6H PRN (Reason: pain) 7 Days Qty: 28 0RF gabapentin 300 mg capsule 300 mg PO QHS Qty: 14 0RF Referrals / Follow Up: Shaq Chandra MD [Med Staff - Active Staff] - 03/05/25 10:30 am Neil Coronado MD [Primary Care Provider] - Within 2 Weeks Disposition Disposition (needs filled in before D/C Order can be placed): Home, Self Care Charges/Coding Visit Charges Inpatient E&M: 09709 Disch Hosp
--- NOTE | 2025-02-06 10:59 | PHA.DC_ITS ---
Pharmacy [place] Med Reconciliation Pharmacy Service has performed discharge medication reconciliation for this patient. The patient's discharge medication list was reviewed for discrepancies and discrepancies were resolved. Medications at Discharge Home Medications albuterol sulfate 90 mcg/actuation aerosol inhaler 2 puff IH PRN PRN Asthma 11/04/16 atorvastatin 20 mg tablet 20 mg PO QHS CHOLESTEROL 11/04/16 cholecalciferol (vitamin D3) 50 mcg (2,000 unit) capsule 6,000 unit PO DAILY SUPPLEMENT 11/04/16 citalopram 40 mg tablet 20 mg PO DAILY anxiety 11/04/16 fish oil-dha-epa 1,200 mg-144 mg-216 mg capsule 1 ea PO DAILY SUPPLEMENT 11/04/16 levothyroxine 112 mcg tablet 112 mcg PO DAILY thyroid 11/04/16 melatonin 5 mg-pyridoxine (vitamin B6) 1 mg tablet 1 ea PO QHS SLEEP 11/04/16 jjeiohpkpsue-rdqwosai-zkivqhy-folic acid 400 mcg-vit K1 20 mcg tablet 1 ea PO DAILY SUPPLEMENT 11/04/16 vitamin E 268 mg (400 unit) capsule 400 unit PO DAILY SUPPLEMENT 11/04/16 calcium 500 mg (as carbonate)-vit D3 10 mcg (400 unit) chewable tablet 2 tab PO QHS SUPPLEMENT 11/08/16 losartan 100 mg tablet (Cozaar) 100 mg PO DAILY BP #30 tabs 03/17/21 famotidine 40 mg tablet 40 mg PO DAILY GERD 04/24/21 fluticasone 250 mcg-salmeterol 50 mcg/dose blistr powdr for inhalation (Wixela Inhub) 1 ea inhalation DAILY ASTHMA 01/22/25 loratadine 10 mg tablet (Allergy Relief (loratadine)) 10 mg PO DAILY ALLERGIES 01/22/25 venlafaxine 75 mg capsule,extended release 24 hr 150 mg PO DAILY DEPRESSION 01/22/25 acetaminophen 500 mg tablet 500 mg PO Q6H #30 tabs 01/25/25 meloxicam 15 mg tablet 15 mg PO DAILY #30 tabs 01/25/25 oxycodone 5 mg tablet 2.5 - 5 mg (0.5 - 1 x 5 mg) PO Q6H PRN pain 7 days #28 t abs 01/25/25 gabapentin 300 mg capsule 300 mg PO QHS #14 caps 02/01/25
--- NOTE | 2025-02-06 11:15 | CASEMGMT ---
Social Work- SW met with pt to discuss directives. Pt named Glorai Espinoza as POA, however, declined to provide a contact number or make her a contact. SW explained the importance of having the ability to contact in an emergency; pt again declined. Pt would like information for free medical alert systems. SW explained that there is a cost for all programs, however, pt could reach out to [facility] to see if pt would qualify for assistance covering the cost by being linked with services. SW provided medical alert list and [facility] information. Pt reports no other needs at this time. ROBERT Price
--- NOTE | 2025-02-06 14:00 | CASEMGMT ---
Dr. Flores came and spoke with this RN CM about Pt not wanting additional therapy. He would like Pt to go to OP therapy or have HHC. ERLIN FRANKEL into patient room to discuss HHC VS OP therapy services. Pt chose HHC. Pt requested [facility], denied wanting a list of agencies. Referral made to [facility].
--- NOTE | 2025-02-06 14:22 | CASEMGMT ---
ERLIN FRANKEL received notification [facility] able to accept pt. ERLIN FRANKEL informed Dr. Chandra and called Pt to notify of acceptance. Pt did not answer, left a VM.
--- NOTE | 2025-02-06 14:23 | PCM.PN.ORT ---
Subjective Subjective Saw her in 307 today. Patient doing well. Says she was able to walk good amount of distance with physical therapy. She is hoping to go home. Denies significant back pain. Leg pain is improving. Objective Data Objective Data Vital Signs: Vital Signs Temp Pulse Resp BP Pulse Ox O2 Del Method 98.4 F 90 18 136/76 H 98 Room Air 02/06/25 08:51 02/06/25 08:51 02/06/25 08:51 02/06/25 08:51 02/06/25 08:51 02/06/25 08:51 Oxygen Delivery Method Room Air Weight: 163 lb 12.855 oz Body Mass Index (BMI) 35.8 Intake & Output: Intake and Output for Last 24 Hours 02/04/25 02/05/25 02/06/25 23:59 23:59 23:59 Intake Total 1700 / 1700 Balance 1700 / 1700 Lab / Micro Data 02/05/25 10:00 02/05/25 10:00 Labs: Laboratory Results - last 24 hr 02/05/25 10:00: ESR 21, C-React Prot Ext Range 3.05 H Radiography Diagnostic Testing: Radiology Impression Lumbar Spine MRI 02/05/25 08:31 IMPRESSION: 1. Status post interval PLIF, L3 through L5. 2. Diffuse degenerative disc disease and facet arthropathy with central canal stenosis at multiple levels as described. 3. Multilevel lateral recess stenosis and foraminal narrowing, as described. 4. Postoperative seroma in the subcutaneous fat of the back as described. 5. Other findings as noted. Reading Location: [id number] Physical Exam Narrative Physical examination of the back and belly shows well-healing and dry surgical incisions. Steri-Strips removed, incision left open. There is ecchymosis surrounding the incisions. No drainage from the surgical incisions. There is no tenderness over the surgical incisions upon examination. Neurological examination of the lower extremities shows 5X5 power. Normal sensation across all dermatomes. Patient denies any bilateral hip pain with the lower extremity movements. Logroll test negative bilaterally. Patient is neurovascularly intact distally. Const alert, oriented x3 and no apparent distress Assessment & Plan Assessment/Plan (1) Status post lumbar spinal fusion: PLAN: Plan Patient did well with physical therapy. MRI report formal read was reviewed and does not show evidence of infection. ESR is normal and CRP only mildly elevated and not suggestive of infection. Discussed continued PT OT mobilization. Patient did well with PT and likely qualifies to go home instead of rehab. May utilize home PT as needed. I will see her for postop follow-up next week to get upright x-rays. Patient was in agreement.
== END 2025-02-06 14:13 | disposition home health service (06) | DRG 641 ==
PROVIDERS: Orthopaedic Surgery Orthopaedic Surgery of the Spine; Admitting Provider Family Medicine; PCP Family Medicine
DX: R62.7 Adult failure to thrive (principal); E03.9 Hypothyroidism, unspecified; I10 Essential (primary) hypertension; F32.A Depression, unspecified; Z68.35 Body mass index [BMI] 35.0-35.9, adult; E78.5 Hyperlipidemia, unspecified; Z98.1 Arthrodesis status; Z79.1 Long term (current) use of non-steroidal anti-inflammatories (NSAID); Z79.890 Hormone replacement therapy; Z79.899 Other long term (current) drug therapy
CPT/HCPCS: 36415; 72158; 80053; 85025; 85652; 86140; 94640; 94668; 97165; A9575; A4216

== ENCOUNTER 2025-04-10 13:00 | Outpatient (RCR) | payer MEDICARE, SELFPAY ==
--- NOTE | 2025-03-14 13:02 | HP.PTEVAL ---
Patient's Visit Information Visit Information Visit Information: EVELIN SANDHU is a 74 year old F referred to Physical Therapy by JEANNINE Ch with a diagnosis of ARTHODESIS. Date of Evaluation: 03/14/25 Physical Therapist: Yohannes Hoffman, PT, Cert MDT, OCS Visit Plan Frequency: 2x /Week Duration: 4 Weeks Plan: S/P LUMBAR FUSION 01/23 AMBULATES WITH CANE ( USES FWW AT HOME) NO BLT NO LIFTING THAN GALLON OF MILK PT INTERVTIONS BLE STRENGTHENING ,BALANCE TRAINING ,DLS ,POSTURAL EX'S AND NUSTEP FOR ENDURANCE Subjective Subjective: This 74 y/o female presents to physical therapy with s/p lumbar fusion. Patient underwent s/p L3-5 posterior percutaneous pedicle screw instrumented fusion, cement augmentation, prone: L3-4 posterior spinal fusion on 01/23/[address]andra at [facility]. Seen Isabella Pickering 03/05 and cont no BLT ,no lifting only gallon of milk. Patient was d/c 01/25/25 . Patient had [facility] PT ~ 6 weeks . Patient has had fall February 05 ,patient went to ER to [facility] MRI and CT scan and was admitted for 3 days then d/c to home . Patient had to mior falls but abdl to get up.Patient has developed leg pain since fall. Medication gabapentin /meloxicam. Prior to surgery MRI prominent multilevel lumbar degenerative disc disease, as described, with multiple levels of spinal canal stenosis and neural foraminal narrowing, with moderately severe spinal canal stenosis seen at the L4-L5 level. Prior to PT from surgery. Patient lives mobilie 4 steps 2 rails. Tub /shower with grab rails. Patient lives has friend to check on patient. Patient sponge bathing. Patient able to cook ,has supervisor wash house. Location pain no back pain ,knee to ankle and calf. Patient sleeps in couch.Prior to surgery prior ffw. Denies paresthesia/tingling ,touch leg causes sensation.Coughing /sneezing -. Bowel/bladder-. Pain affects sleeping. Patient condition affects QOL/function/gait. Patient goals no falls get stronger. SOCAIL: single VOCATION: retired Pain Bilateral Back: Pain Intensity (Out of 10): 0 Pain Intensity Range: 10 Bilateral Lower Extremity: Pain Intensity (Out of 10): 1 Pain Intensity Range: 10 and N/A Comment: calf -ankle Objective Objective: POSTURE: mild forward posture GAIT: reciprocal pattern with 2 point point gait slow jeannie ( uses fww at home) BALANCE: fair+ with cane SKIN: incision well approximate NEURO: c/o paresthesia/tingling knee to feet ,light touch diminished FLEXABLITY: hamstrings mod tight LUMBAR ROM: flexion mod loss,extension severe loss Special Tests L/S Left Straight Leg Raise: Negative L/S Right Straight Leg Raise: Negative Balance/Special Test Scores CATSIB Score (Max score 120 seconds): 50 Oswestry Low Back Score: 33 TUG Test Time Seconds: 26.23 Goals Goal 1:: Patient to be I with HEP for strengthening Goal Time Frame: 4-6 Weeks Goal 2:: Patient to improve lumbar ROM for function of recovery for putting on shoes Goal Time Frame: 4-6 Weeks Goal 3:: Patient to improve CATSIB score by 5-10 points to improve QOL and balance Goal Time Frame: 4-6 Weeks Goal 4:: Patient to improve peak force quads/hams/hip by 5-10# to improve gait/function Goal Time Frame: 4-6 Weeks Goal 5:: Patient improve Tug score less 20 seconds to improve safe gait Goal Time Frame: 4-6 Weeks Goal 6:: Patient to improve back oswestry score by 3-5 points to improve QOL Rehabilitation Potential Physical Therapy Diagnosis: This patient underwent s/p lumbar fusion February 23 with balance deficits ,decrease lumbar ROM ,weakness in legs ,impairs gait and ADLS thus benefit from skilled PT Rehabilitation Potential: Good Anticipated Interventions Patient/Client Instruction: Educate patient on: Condition and Plan of Care For the Purpose of:: To decrease pain, To increase ROM, To improve muscle performance and motor function, To improve ability to perform ADL's, To improve ability of physical actions for home/community/work/leisure, To improve gait and locomotor functions, To increase flexibility/ROM, To improve endurance, To improve balance, To assume or resume ADL's and To improve tolerance to ADL's Therapeutic Exercise to Include: Strength training, Endurance training, Balance training, Postural training, Flexibilty training, Gait and locomotor training and Dynamic Lumbar Stabilization For the Purpose of:: To decrease pain, To increase ROM, To improve muscle performance and motor function, To improve ability to perform ADL's, To increase tolerance to activity/condition/position, To improve ability of physical actions for home/community/work/leisure, To improve gait and locomotor functions, To increase flexibility/ROM, To improve endurance, To improve balance and To assume or resume ADL's Text: Thank you for the opportunity to evaluate your patient. For Medicare and Medicare HMO plans, please review the plan of care and approve it. It will need to be FAXED BACK to us at [phone] for Medicare purposes. For Medicare only, by signing this I certify the plan of care. Please let me know if there are questions or concerns regarding this plan of care. Physician Signature: Date:
--- NOTE | 2025-04-10 14:00 | HP.PTDCSUM ---
Discharge Summary D/C summary: It has been my pleasure to treat EVELIN SANDHU referred by JEANNINE Ch, with the diagnosis of ARTHODESIS for a total of 6 visit(s). Discharge Date: Please see the following information for a summary of their discharge status. Subjective Subjective: Patient reports that she is able to do all of her things again- except for cleaning. She feels that she is ready to be discharged. She is driving herself and doesn't have any more buckling. Pain Bilateral Back: Pain Intensity (Out of 10): 3 Bilateral Lower Extremity: Pain Intensity (Out of 10): 0 Overall Improvement % Improvement: 100 Objective Objective/Function: POSTURE: fair throughout GAIT: asc/desc 8 stairs recip with a single HR BALANCE: she uses a cane with rough pavement- but not in the house. NEURO: WNL to light touch FLEXABLITY: hamstrings mod tight LUMBAR ROM: WFL Special Tests L/S Left Straight Leg Raise: Negative L/S Right Straight Leg Raise: Negative Balance/Special Test Scores CATSIB Score (Max score 120 seconds): 30 TUG Test Time Seconds: 15 Goals Goal 1:: Patient to be I with HEP for strengthening Goal Progress: Goal Met Goal 2:: Patient to improve lumbar ROM for function of recovery for putting on shoes Goal Progress: Goal Met Goal 3:: Patient to improve CATSIB score by 5-10 points to improve QOL and balance Goal Progress: Goal Met Goal 4:: Patient to improve peak force quads/hams/hip by 5-10# to improve gait/function Goal Progress: Goal Met Goal 5:: Patient improve Tug score less 20 seconds to improve safe gait Goal Progress: Goal Met Goal 6:: Patient to improve back oswestry score by 3-5 points to improve QOL Goal Progress: Goal Met Plan Plan: Discharge to I HEP D/C Information d/c sentence: If there are questions or concerns regarding this patient's physical therapy, please feel free to call me at [phone]. Thank you for the referral of this patient. Sincerely, Rhonda Mcclure, DPT Balance/Gait/Functional tests Balance/Special Test Scores CATSIB Score (Max score 120 seconds): 50 Oswestry Low Back Score: 4 TUG Test Time Seconds: 26.23 Tug Test: 20-30sec.=variable mobility Improvement % Improvement: 100
== END 2025-04-10 19:00 | disposition home or self-care (01) ==
LOC: PT 13:00
PROVIDERS: PCP Family Medicine; Referring Provider Student in an Organized Health Care Education/Training Program; Visit Provider Student in an Organized Health Care Education/Training Program
DX: Z98.1 Arthrodesis status (principal)
CPT/HCPCS: 97110; 97162; 97530